=== PATIENT | male | born 1960 | race Caucasian/White ===

== ENCOUNTER → 2017-11-30 | Outpatient (CLI) | payer BC ==
[2017-11-30 12:31] LABS: HEMATOCRIT 50.1 % (42-52); HEMOGLOBIN 17.1 g/dL (14.0-18.0); MEAN CELL VOLUME 97.7 fL (80-100); MEAN CORPUSCULAR HEMOGLOBIN 33.3 pg (25-34); MEAN CORPUSCULAR HGB CONC 34.1 g/dl (32-36); MEAN PLATELET VOLUME 9.6 fL (7.4-10.4); PLATELET COUNT 311 K/uL (130-400); RED CELL DISTRIBUTION WIDTH SD 46.3 fL (36.4-46.3); WHITE BLOOD COUNT 17.41 K/uL (4.8-10.8)
[2017-11-30 12:54] LABS: ALBUMIN 3.5 gm/dl (3.4-5.0); ALKALINE PHOSPHATASE 78 U/L (45-117); ALT/SGPT 36 U/L (12-78); AST/SGOT 18 U/L (15-37); BLOOD UREA NITROGEN 21 mg/dl (7-18); CALCIUM 9.2 mg/dl (8.5-10.1); CARBON DIOXIDE 29 mmol/L (21-32); CHOLESTEROL 208 mg/dl (0-200); CREATININE 1.44 mg/dl (0.60-1.40); GLUCOSE 87 mg/dl (70-99); LDL CHOLESTEROL CALCULATED 130 mg/dl; POTASSIUM 4.3 mmol/L (3.5-5.1); SODIUM 138 mmol/L (136-145); TOTAL PROTEIN 7.3 gm/dl (6.4-8.2)
[2017-11-30 13:15] LABS: BASO % 1.4 %; BASO ABS # 0.25 K/uL (0-0.2); EOS % 2.3 %; IG# 0.72 K/uL (0.00-0.02); LYMPH % 12.8 %; LYMPH ABS # 2.22 K/uL (1.2-3.4); MONO ABS # 1.91 K/uL (0.11-0.59); NEUT % 68.4 %; NEUT ABS # 11.91 K/uL (1.4-6.5)
== END | disposition home or self-care (01) ==
LOC: C.LABPBG 07:48
PROVIDERS: ATTEND Internal Medicine
DX: E78.2 Mixed hyperlipidemia (principal); M05.79 Rheumatoid arthritis with rheumatoid factor of multiple sites without organ or systems involvement; Z79.899 Other long term (current) drug therapy

== ENCOUNTER → 2017-12-08 | Outpatient (CLI) | payer BC ==
--- NOTE | 2017-12-08 10:53 | DIAGNOSTIC IMAGING REPORT ---
L HAND MIN 3 VIEWS CLINICAL HISTORY: 57 years-old Male presenting with LEFT WRIST PAIN. TECHNIQUE: Frontal, oblique, and lateral views of the left hand were obtained. COMPARISON: None. FINDINGS: Joint space loss at the radial scaphoid articulation. No evidence of erosion. No acute fracture or malalignment. No radiographic evidence of soft tissue swelling. Mild degenerative changes suggested at the distal interphalangeal joints of the second and third fingers. IMPRESSION: 1. Joint space loss consistent with degenerative change at the radial scaphoid articulation. Less severe degenerative changes at the distal interphalangeal joints of the second and third fingers. Electronically signed by: Karthik Pena M.D. 12/08/2017 10:52 AM Dictated Date/Time: 12/08/2017 10:45 AM
== END | disposition home or self-care (01) ==
LOC: C.RDSM 17:59
PROVIDERS: ATTEND Internal Medicine
DX: M25.532 Pain in left wrist (principal); M25.832 Other specified joint disorders, left wrist

== ENCOUNTER → 2017-12-29 | Outpatient (CLI) | payer BC ==
[~2017-12-29] MED LIST: AMLO5CAP2 PO; ATEN50TA8 PO; GLUC15002 PO; HYDR-4715 PO; MAGN400T6 PO; PANT40TA PO; PRED-301 PO; SULF500T8 PO; [UNRECOGNIZED DRUG - CODE] IV.
--- NOTE | 2017-12-29 09:39 | DIAGNOSTIC IMAGING REPORT ---
ADDENDUM ADDENDUM: Chest CT scans dated 03/05/2014 and 03/03/2015 were subsequently presented for comparison purposes. The pulmonary nodule has not significantly changed in size from that time. Although this remains pathologically indeterminant, long-term stability suggests a benign etiology. Further follow-up should be based on clinical grounds. The small pleural-based nodules in the right are also unchanged. Electronically signed by: Cesar Shepard M.D. 12/29/2017 2:59 PM Dictated Date/Time: 12/29/2017 2:[address] SCAN OF THE CHEST WITHOUT IV CONTRAST CLINICAL HISTORY: Pulmonary nodules. COMPARISON STUDY: No priors. TECHNIQUE: CT scan of the thorax was performed from the thoracic inlet to the upper abdomen. Images are reviewed in the axial, sagittal, and coronal planes. IV contrast was not administered for this examination as per the referring clinician. A dose lowering technique was utilized adhering to the principles of ALARA. CT DOSE: 1087.09 mGy.cm FINDINGS: Thyroid: Imaged portions of the thyroid gland are normal in size and attenuation. Thoracic aorta: There is mild atherosclerotic calcification of the thoracic aorta, which is normal in caliber and demonstrates standard 3-vessel arch anatomy. Heart: The heart is mildly enlarged and without pericardial effusion. There are coronary artery calcifications. The main pulmonary arteries are mildly dilated suggesting pulmonary artery hypertension. Lungs and pleural spaces: Emphysematous change is identified. No airspace consolidation or pleural effusion is seen. Dependent atelectasis is observed. There is mild diffuse peribronchial thickening. Scattered calcified granulomas are identified. There is an irregular nodule in the left upper lobe which measures 1.6 x 1.1 cm as seen on axial image #86. An 8 mm pleural-based nodule is seen in the right lower lobe along the major fissure on image #145. 8 3 mm pleural-based nodule in the right upper lobe is seen image #124. Subpleural reticulation is seen throughout both lungs. The trachea and central airways are patent Mediastinum: There are scattered subcentimeter mediastinal lymph nodes. These are not pathologically enlarged by size criteria. Kecia: Not well assessed without IV contrast. Axillae: There is no axillary lymphadenopathy. Upper abdomen: The liver is enlarged and steatotic. There is a small hiatal hernia. The spleen is top normal in size measuring 13 cm in length. Skeletal structures: No lytic or blastic bony lesions are seen. IMPRESSION: 1. Cardiomegaly and emphysema. 2. There is an irregular 1.6 cm pulmonary nodule in the left upper lobe. Neoplasm is the diagnosis of exclusion. Follow-up with a thoracic surgeon is recommended. 3. There are 2 additional pleural-based nodules in the right lung measuring up to 8 mm. These are pathologically indeterminant and attention at follow-up is recommended. 4. No mediastinal lymphadenopathy is identified. 5. There is no airspace consolidation or pleural effusion. Mild diffuse peribronchial thickening suggests reactive airway disease. Clinical correlation will be required. 6. Hepatomegaly and hepatic steatosis. Electronically signed by: Cesar Shepard M.D. 12/29/2017 9:38 AM Dictated Date/Time: 12/29/2017 9:27 AM
== END | disposition home or self-care (01) ==
LOC: C.CTS 09:07
PROVIDERS: ATTEND Family Medicine
DX: Z00.00 Encounter for general adult medical examination without abnormal findings (principal); M25.532 Pain in left wrist; R91.8 Other nonspecific abnormal finding of lung field; I51.7 Cardiomegaly; J43.9 Emphysema, unspecified; R16.0 Hepatomegaly, not elsewhere classified; K76.0 Fatty (change of) liver, not elsewhere classified

== ENCOUNTER 2017-12-30 20:50 | Emergency (ER) | payer BC ==
[~2017-12-30] VITALS: Ht 182.9 cm; Wt 144.5 kg
[2017-12-30 20:55] VITALS: TEMP 36.9; Ht 182.9 cm; Wt 144.5 kg
[2017-12-30 21:02] VITALS: O2SAT 97
[2017-12-30 21:44] LABS: BASO % 1.5 %; BASO ABS # 0.16 K/uL (0-0.2); EOS ABS # 0.86 K/uL (0-0.5); HEMATOCRIT 49.9 % (42-52); HEMOGLOBIN 17.5 g/dL (14.0-18.0); LYMPH % 22.5 %; LYMPH ABS # 2.41 K/uL (1.2-3.4); MEAN CELL VOLUME 93.8 fL (80-100); MEAN CORPUSCULAR HEMOGLOBIN 32.9 pg (25-34); MEAN CORPUSCULAR HGB CONC 35.1 g/dl (32-36); MEAN PLATELET VOLUME 9.2 fL (7.4-10.4); MONO % 11.4 %; MONO ABS # 1.22 K/uL (0.11-0.59); NEUT % 54.7 %; NEUT ABS # 5.85 K/uL (1.4-6.5); PLATELET COUNT 213 K/uL (130-400); RED CELL DISTRIBUTION WIDTH CV 12.7 % (11.5-14.5); RED CELL DISTRIBUTION WIDTH SD 43.6 fL (36.4-46.3)
--- NOTE | 2017-12-30 22:02 | DIAGNOSTIC IMAGING REPORT ---
CHEST ONE VIEW PORTABLE HISTORY: 57 years-old Male CHEST PAIN acute atypical chest pain COMPARISON: CT chest 12/29/2017 TECHNIQUE: Portable AP view of the chest FINDINGS: Cardiac silhouette is again enlarged, unchanged. Atherosclerosis of the thoracic aorta. Mild subsegmental right basilar opacities are noted. There is no pneumothorax, pleural effusion, or overt pulmonary edema. Trace fluid tracks along the minor fissure. The bones of the chest appear grossly intact. IMPRESSION: 1. Cardiomegaly without overt pulmonary edema. 2. Subsegmental right basilar opacities suggest atelectasis or pneumonitis The above report was generated using voice recognition software. It may contain grammatical, syntax or spelling errors. Electronically signed by: Samson Kwok M.D. 12/30/2017 10:00 PM Dictated Date/Time: 12/30/2017 9:58 PM
[2017-12-30 22:08] LABS: PTT PATIENT 23.4 SECONDS (21.0-31.0)
[2017-12-30 22:14] LABS: ALT/SGPT 63 U/L (12-78); BLOOD UREA NITROGEN 14 mg/dl (7-18); CALCIUM 8.8 mg/dl (8.5-10.1); CARBON DIOXIDE 28 mmol/L (21-32); CREATININE 1.63 mg/dl (0.60-1.40); GLUCOSE 103 mg/dl (70-99); LIPASE 448 U/L (73-393); POTASSIUM 4.6 mmol/L (3.5-5.1); SODIUM 141 mmol/L (136-145)
[2017-12-30 22:20] LABS: ALKALINE PHOSPHATASE 101 U/L (45-117); AST/SGOT 36 U/L (15-37); CKMB 5.1 ng/ml (0.5-3.6); TOTAL PROTEIN 7.2 gm/dl (6.4-8.2)
[2017-12-30] MEDS ORDERED: [UNRECOGNIZED DRUG - CODE] IV. (23:01)
[2017-12-30] MEDS ORDERED: MAGN400T6 PO (23:01)
[2017-12-30] MEDS ORDERED: ATEN50TA8 PO (23:01)
[2017-12-30] MEDS ORDERED: AMLO5CAP2 PO ×2 (23:01)
[2017-12-30] MEDS ORDERED: SULF500T8 PO (23:01)
[2017-12-30] MEDS ORDERED: PANT40TA PO (23:01)
[2017-12-30] MEDS ORDERED: HYDR-4715 PO ×2 (23:01)
[2017-12-30] MEDS ORDERED: PRED-301 PO (23:01)
[2017-12-30] MEDS ORDERED: GLUC15002 PO (23:01)
[2017-12-30] MEDS ORDERED: ASPIRIN 81 MG CHEW PO STA (23:23)
[2017-12-30 23:48] VITALS: BP 164/94; PULSE 67; O2SAT 94
--- NOTE | 2017-12-31 01:37 | EMERGENCY ROOM VISIT NOTE ---
History Report prepared by Jamarcus: Dani Pfeiffer Under the Supervision of: Dr. Otto Montalvo M.D. First contact with patient: 21:03 Chief Complaint: CARDIAC ASSESSMENT Stated Complaint: CHEST/SHOULDER PAIN History of Present Illness The patient is a 57 year old male with a history of hypertension who presents to the Emergency Room with complaints of a 3-hour episode of chest pain that occurred earlier around 3 and a half hours ago. He states that the pain came on after eating spicy ribs, and he had pain going down to his abdomen as well. He says that the pain gradually came on pretty quickly, and the pain was right across his entire chest. The patient rates the worst pain as a 6 or 7 out of 10 in severity. The patient says that he burped 4 times in the car ride here, and after that the chest pain went completely away and his abdominal pain is much better. He says that he currently has zero pain. The patient states that he vomited once an hour into the chest pain episode. The patient adds that he took 2 acid reducers when the pain came on, but it did not do anything to the pain. He notes that he has not taken his evening blood pressure medications yet. The patient adds that he has rheumatoid arthritis, and had a routine CT of his chest yesterday because there was a nodule found in his lung 5 years ago. The patient is an ex-smoker. 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 Pt denies LOC, headache, fevers, chills, diaphoresis, visual changes, neck pain , tearing pain radiating to the back, personal history or family history of aneurysm or pulmonary embolism, breathing difficulties, leg swelling, coagulation abnormalities, prolonged travel, recent surgery, melena, hematochezia, urinary symptoms, numbness, weakness, lymphadenopathy, rash, or other complaints. Source of History: patient Onset: Around 3 and a half hours ago Position: chest Symptom Intensity: 6 or 7 out of 10 Quality: other (pain) Associated Symptoms: + nausea, + vomiting, + abdominal pain Note: No other associated symptoms noted. Review of Systems See HPI for pertinent positives and negatives. A total of ten systems were reviewed and were otherwise negative. Past Medical & Surgical Medical Problems: (1) Arthritis (2) HTN (hypertension) Family History No pertinent family history Social History Smoking Status: Former Smoker Drug Use: none Marital Status: Housing Status: lives with family Occupation Status: employed Current/Historical Medications Scheduled Amlodipine/Benazepril (Lotrel 5MG/20MG), 2 CAP PO QAM Amlodipine/Benazepril (Lotrel 5MG/20MG), 1 CAP PO AFTERNOON Atenolol (Tenormin), 100 MG PO AFTERNOON Rjxtjhjlzgi-Owzhkzrypdu-Yua C- (Glucosamine 1500 Complex), 1 CAP PO DAILY Hydralazine Hcl (Apresoline), 10 MG PO AFTERNOON Hydralazine Hcl (Apresoline), 10 MG PO QAM Magnesium Oxide (Mag-Ox), 1 CAP PO DAILY Pantoprazole (Protonix), 40 MG PO QAM Prednisone (Prednisone), 5-10 MG PO DAILY Sulfasalazine (Sulfazine), 1,500 MG PO BID Tocilizumab (Actemra), 800 MG IV. MONTHLY Allergies Coded Allergies: No Known Allergies (Unverified , 12/30/17) Physical Exam Vital Signs Date Time Temp Pulse Resp B/P (MAP) Pulse Ox O2 Delivery O2 Flow Rate FiO2 12/30/17 23:48 67 19 164/94 94 12/30/17 22:38 65 122/59 95 Room Air 12/30/17 22:05 70 146/90 94 Room Air 12/30/17 21:45 74 172/92 94 Room Air 12/30/17 21:08 67 12/30/17 21:04 69 196/120 96 Room Air 12/30/17 21:02 97 Room Air 12/30/17 21:01 97 Room Air 12/30/17 20:55 36.9 77 20 199/122 95 Room Air Physical Exam GENERAL: Awake, alert, well-appearing, in no distress HENT: Normocephalic, atraumatic. Oropharynx unremarkable. EYES: Normal conjunctiva. Sclera non-icteric. NECK: Supple. No nuchal rigidity. FROM. No masses. RESPIRATORY: Clear to auscultation. No wheezes. CARDIAC: Normal rate. Normal rhythm. No murmurs. No rubs. Extremities warm and well perfused. Pulses equal. No JVD. GI: Soft, non-distended. No tenderness to palpation. No rebound or guarding. No masses. RECTAL: Deferred. MUSCULOSKELETAL: Atraumatic. Chest examination reveals no tenderness. The back is symmetrical on inspection without obvious abnormality. There is no CVA tenderness to palpation. No joint edema. LOWER EXTREMITIES: Calves are equal size bilaterally and non-tender. No edema. No discoloration. NEURO: Normal sensorium. No sensory or motor deficits noted. SKIN: No rash or jaundice noted. Medical Decision & Procedures ER Provider Diagnostic Interpretation: X-ray: Per my interpretation, radiologist review. CHEST ONE VIEW PORTABLE HISTORY: 57 years-old Male CHEST PAIN acute atypical chest pain COMPARISON: CT chest 12/29/2017 TECHNIQUE: Portable AP view of the chest FINDINGS: Cardiac silhouette is again enlarged, unchanged. Atherosclerosis of the thoracic aorta. Mild subsegmental right basilar opacities are noted. There is no pneumothorax, pleural effusion, or overt pulmonary edema. Trace fluid tracks along the minor fissure. The bones of the chest appear grossly intact. IMPRESSION: 1. Cardiomegaly without overt pulmonary edema. 2. Subsegmental right basilar opacities suggest atelectasis or pneumonitis The above report was generated using voice recognition software. It may contain grammatical, syntax or spelling errors. Electronically signed by: Samson Kwok M.D. 12/30/2017 10:00 PM Dictated Date/Time: 12/30/2017 9:58 PM Laboratory Results 12/30/17 21:34 Red Blood Count 5.32, Mean Corpuscular Volume 93.8, Mean Corpuscular Hemoglobin 32.9, Mean Corpuscular Hemoglobin Concent 35.1, Mean Platelet Volume 9.2, Neutrophils (%) (Auto) 54.7, Lymphocytes (%) (Auto) 22.5, Monocytes (%) (Auto) 11.4, Eosinophils (%) (Auto) 8.0, Basophils (%) (Auto) 1.5, Neutrophils # (Auto ) 5.85, Lymphocytes # (Auto) 2.41, Monocytes # (Auto) 1.22, Eosinophils # (Auto ) 0.86, Basophils # (Auto) 0.16 12/30/17 21:34 Test 12/30/17 21:34 White Blood Count 10.70 K/uL (4.8-10.8) Red Blood Count 5.32 M/uL (4.7-6.1) Hemoglobin 17.5 g/dL (14.0-18.0) Hematocrit 49.9 % (42-52) Mean Corpuscular Volume 93.8 fL (80-100) Mean Corpuscular Hemoglobin 32.9 pg (25-34) Mean Corpuscular Hemoglobin Concent 35.1 g/dl (32-36) Platelet Count 213 K/uL (130-400) Mean Platelet Volume 9.2 fL (7.4-10.4) Neutrophils (%) (Auto) 54.7 % Lymphocytes (%) (Auto) 22.5 % Monocytes (%) (Auto) 11.4 % Eosinophils (%) (Auto) 8.0 % Basophils (%) (Auto) 1.5 % Neutrophils # (Auto) 5.85 K/uL (1.4-6.5) Lymphocytes # (Auto) 2.41 K/uL (1.2-3.4) Monocytes # (Auto) 1.22 K/uL (0.11-0.59) Eosinophils # (Auto) 0.86 K/uL (0-0.5) Basophils # (Auto) 0.16 K/uL (0-0.2) RDW Standard Deviation 43.6 fL (36.4-46.3) RDW Coefficient of Variation 12.7 % (11.5-14.5) Immature Granulocyte % (Auto) 1.9 % Immature Granulocyte # (Auto) 0.20 K/uL (0.00-0.02) Prothrombin Time 10.2 SECONDS (9.0-12.0) Prothromb Time International Ratio 1.0 (0.9-1.1) Activated Partial Thromboplast Time 23.4 SECONDS (21.0-31.0) Partial Thromboplastin Ratio 0.9 D-Dimer 320 ug/L FEU (0-500) Anion Gap 6.0 mmol/L (3-11) Est Creatinine Clear Calc Drug Dose 73.8 ml/min Estimated GFR () 53.4 Estimated GFR (Non- 46.1 BUN/Creatinine Ratio 8.3 (10-20) Calcium Level 8.8 mg/dl (8.5-10.1) Total Bilirubin 0.3 mg/dl (0.2-1) Direct Bilirubin < 0.1 mg/dl (0-0.2) Aspartate Amino Transf (AST/SGOT) 36 U/L (15-37) Alanine Aminotransferase (ALT/SGPT) 63 U/L (12-78) Alkaline Phosphatase 101 U/L (45-117) Total Creatine Kinase 241 U/L (39-308) Creatine Kinase MB 5.1 ng/ml (0.5-3.6) Creatine Kinase MB Ratio 2.1 (0-3.0) Troponin I < 0.015 ng/ml (0-0.045) Total Protein 7.2 gm/dl (6.4-8.2) Albumin 4.0 gm/dl (3.4-5.0) Lipase 448 U/L (73-393) Laboratory results reviewed by me Medications Administered Medications (Trade) Dose Ordered Sig/Madeleine Route Start Time Stop Time Status Last Admin Dose Admin Aspirin (Aspirin Chew) 81 mg NOW STAT PO 12/30/17 23:23 12/30/17 23:24 DC 12/30/17 23:48 81 MG ECG Per My Interpretation Indication: chest pain Rate (beats per minute): 62 Rhythm: normal sinus Findings: no acute ischemic change, no ectopy, other (no pericarditis, normal intervals) ED Course 2120: The patient was evaluated in room A2. A complete history and physical exam was performed. 2299: I reevaluated the patient and the patient has decided to leave against medical advice. I had a long discussion with him and he refused hospitalization. He will follow-up with his PCP on Monday. Medical Decision Triage Nursing notes reviewed. The patient's presentation and history were concerning for chest pain. Etiologies such as cardiac ischemia, aortic dissection, pulmonary embolism, pneumonia, pneumothorax, musculoskeletal, infections, gastrointestinal, as well as others were entertained. Patient presents to emergency department. He had reported a significant amount of discomfort and was very hypertensive. Blood work was obtained. The patient was found to have an unremarkable CBC and chemistry panel. He has slight renal insufficiency. D-dimer was negative. His troponin was negative however his CK- MB was mildly elevated. ECG did not reveal any obvious acute change. Chest imaging showed some congestion versus atelectasis. The patient is not having any pulmonary symptoms such as cough or shortness of breath. I suspect atelectasis. Without intervention his blood pressure did improve. The patient has multiple cardiac risk factors. I discussed staying in the hospital with him. I spent a significant amount of time doing so as the patient was declining admission for a chest pain evaluation. He was fully aware that his CK -MB was abnormal and his blood pressure was dangerously high on presentation. He does not want stay in the hospital. The patient has demonstrated no significant defect in the decision-making capacity to make choices. The encounter had a good level of communication with language the patient can easily understand. I feel trust was present and conveyed that our action/intentions were the best interest of the patient. I offered to involve the patient's primary physician's service. The patient was given all relevant information and reiterated the explained risks and benefits. The patient explained the reasoning for refusing treatment clearly. The patient possesses and expresses a set of values and goals, the ability to communicate and understand, and an ability to reason and deliberate. Despite acting emphatically, attentively and with the utmost patient's the patient declined further treatment. I offered options, negotiated, and explored every reasonable choice. I must respect the patient's autonomy and that they feel that their choices are best for them despite the associated risks of leaving AGAINST MEDICAL ADVICE. The patient was educated about the findings as listed above. All questions were answered and the patient was pleased with the treatment. Return instructions were outlined. The patient was referred to his PCP for follow-up for a recheck of the current condition. Case management will contact his primary office. The patient was aware of this and was okay with assistance. Medication Reconcilliation Current Medication List: was personally reviewed by me Blood Pressure Screening Patient's blood pressure: Elevated blood pressure Blood pressure disposition: Referred to PCP (referred on Monday) Impression Primary Impression: Precordial chest pain Additional Impressions: Severe hypertension Left against medical advice Scribe Attestation The scribe's documentation has been prepared under my direction and personally reviewed by me in its entirety. I confirm that the note above accurately reflects all work, treatment, procedures, and medical decision making performed by me. Departure Information Dispostion Against Medical Advice Referrals Zechariah Cabral MD (PCP) Patient Instructions My [facility] Additional Instructions CHEST PAIN INSTRUCTIONS: You are leaving against the physician's medical advice. Your evaluation is not complete. The exact cause of your symptoms is not known at this time. Your health could be at significant risk by your actions of leaving before the evaluation was completed. This could result in worsening of your condition, need for further treatment, hospitalization, surgery, or even . You may return at any time, for any reason, but you are encouraged to return immediately if your symptoms worsen or if you change your mind. Rest and drink plenty of fluids as tolerated. Continue current medications. Take a baby aspirin daily until directed otherwise by your primary doctor. Avoid strenuous activities and anything that worsens your pain. Return to the ER immediately for worsening or persistent chest pain, abdominal pain, vomiting, fevers, chest pains, difficulty breathing, worsening of your condition, or as needed. Follow up with your primary physician Monday for a recheck of your current condition. Problem Qualifiers
== END 2017-12-30 23:49 | disposition left against medical advice (07) ==
LOC: C.EDB 20:52 → C.EDA 23:49
DX: R07.2 Precordial pain (principal); I10 Essential (primary) hypertension; M19.90 Unspecified osteoarthritis, unspecified site; Z87.891 Personal history of nicotine dependence

== ENCOUNTER → 2018-01-12 | Outpatient (CLI) | payer BC ==
--- NOTE | 2018-01-12 08:56 | DIAGNOSTIC IMAGING REPORT ---
BILATERAL KNEES 3 VIEWS EACH CLINICAL HISTORY: BILATERAL KNEE PAIN COMPARISON STUDY: None. FINDINGS: No acute fracture or dislocation within the right or left knee. Severe right and moderate left cartilage space narrowing within the medial compartments. Tricompartmental marginal osteophytes. Small right knee effusion. No significant left knee effusion. Mild vascular calcifications. Jugular shape calcific density adjacent to the medial compartment of the right knee. This may represent a calcified medial meniscus. IMPRESSION: 1. Bilateral medial compartment osteoarthritis, right greater than left. 2. No fractures within the knees. 3. Small right knee effusion. 4. Calcific density adjacent to the medial compartment of the right knee which may represent a calcified meniscus. Electronically signed by: Damon Alvarado M.D. 01/12/2018 8:54 AM Dictated Date/Time: 01/12/2018 8:52 AM
== END | disposition home or self-care (01) ==
LOC: C.RDSM 13:02
PROVIDERS: ATTEND Internal Medicine
DX: M25.561 Pain in right knee (principal)

== ENCOUNTER → 2018-02-26 | Outpatient (CLI) | payer BC ==
[2018-02-26 17:23] LABS: BASO % 0.9 %; BASO ABS # 0.09 K/uL (0-0.2); EOS % 6.1 %; EOS ABS # 0.58 K/uL (0-0.5); HEMATOCRIT 52.9 % (42-52); HEMOGLOBIN 18.2 g/dL (14.0-18.0); IG# 0.12 K/uL (0.00-0.02); LYMPH % 15.8 %; MEAN CELL VOLUME 95.1 fL (80-100); MEAN CORPUSCULAR HEMOGLOBIN 32.7 pg (25-34); MEAN CORPUSCULAR HGB CONC 34.4 g/dl (32-36); MONO % 9.9 %; MONO ABS # 0.94 K/uL (0.11-0.59); NEUT ABS # 6.26 K/uL (1.4-6.5); PLATELET COUNT 230 K/uL (130-400); RED CELL DISTRIBUTION WIDTH SD 45.3 fL (36.4-46.3); WHITE BLOOD COUNT 9.49 K/uL (4.8-10.8)
[2018-02-26 18:54] LABS: ALBUMIN 3.9 gm/dl (3.4-5.0); ALKALINE PHOSPHATASE 98 U/L (45-117); ALT/SGPT 54 U/L (12-78); AST/SGOT 32 U/L (15-37); BLOOD UREA NITROGEN 21 mg/dl (7-18); CALCIUM 8.5 mg/dl (8.5-10.1); CARBON DIOXIDE 26 mmol/L (21-32); CREATININE 1.29 mg/dl (0.60-1.40); GLUCOSE 123 mg/dl (70-99); POTASSIUM 4.3 mmol/L (3.5-5.1); SODIUM 139 mmol/L (136-145); TOTAL PROTEIN 7.5 gm/dl (6.4-8.2)
[2018-02-28 13:25] LABS: QUANTIF MITOGEN-NIL 8.18 IU/ML; QUANTIFERON NEGATIVE (NEGATIVE); QUANTIFERON NIL 0.03 IU/ML
== END | disposition home or self-care (01) ==
LOC: C.LABPBG 11:34
PROVIDERS: ATTEND Internal Medicine
DX: M05.79 Rheumatoid arthritis with rheumatoid factor of multiple sites without organ or systems involvement (principal); Z79.52 Long term (current) use of systemic steroids

== ENCOUNTER 2019-08-29 17:54 | Inpatient (IN) ==
[2019-08-29] MEDS ORDERED: KETOROLAC 30 MG/ML VIAL IV STA (18:27)
[2019-08-29] MEDS ORDERED: SODIUM CHLORIDE 0.9% 500 ML IV SCH (18:30)
--- NOTE | 2019-08-29 18:35 | Emergency Department Note ---
Entered by Deborah Jansen acting as a scribe for History of Present Illness General Chief complaint: Rib Injury/Pain Stated complaint: RIGHT SIDED CHEST PAIN Time Seen by Provider: 08/29/19 18:12 Source: patient History of Present Illness Onset (ago): day(s) 1 Location: abdomen and right Pain Consistency: + constant Maximum Pain Intensity: 3 Current Pain Intensity: 3 Quality: + sharp Relieved By: + none Exacerbated By: + movement and + other (deep breaths) Associated symptoms: + weakness The patient is a 59 year old male who presents to the Emergency Room with complaints of right sided rib pain that began around noon yesterday. He states that yesterday he was feeling generally unwell all day, and experienced fatigue. His pain is exacerbated with movement and with deep breaths. He describes the pain as sharp, which is causing some shortness of breath. He has a history of rheumatoid arthritis, and received an infusion on Monday. He states that he gets these every few months. He denies, runny nose, sore throat, pain or swelling in legs, and abdominal pain. He reports he was a recent smoker, and quit 19 years ago. Home Medications Home Medications Medication Instructions Recorded Confirmed Type amlodipine-benazepril 1 cap PO QPM 10/21/18 08/29/19 History amlodipine-benazepril 2 cap PO QAM 10/21/18 08/29/19 History atenolol 100 mg PO HS 10/21/18 08/29/19 History [id number]-[id number]-yvs C-Mn 1,500 mg PO QAM 10/21/18 08/29/19 History hydralazine 10 mg PO BID 10/21/18 08/29/19 History magnesium oxide 400 mg PO QAM 10/21/18 08/29/19 History pantoprazole 40 mg PO HS 10/21/18 08/29/19 History prednisone 5 - 10 mg PO DAILY 10/21/18 08/29/19 History sulfasalazine 1,500 mg PO BID 10/21/18 08/29/19 History tocilizumab [Actemra] 800 mg IV MONTHLY 10/21/18 08/29/19 History Allergies Allergy/AdvReac Type Severity Reaction Status Date / Time No Known Allergies Allergy Verified 08/29/19 20:10 Past Med/Surg History Medical History Rheumatoid arthritis HTN (hypertension) (Chronic) Arthritis (Chronic) Family History Other No pertinent family history Social History Feels Safe at Home: Yes Smoking Status: Never smoker Review of Systems See HPI for pertinent positives & negatives. and A total of 10 systems reviewed and were otherwise negative Physical Exam Vital Signs Vital Signs - 24 hr 08/29/19 17:55 08/29/19 18:53 08/29/19 19:01 Temperature 36.9 C Temperature Source Oral Sepsis Recent Fever Within 48 Hours No Sepsis New/Unexplained Change in Mental Status No Sepsis Action Taken by Nursing No Action Required Pulse Rate 70 64 61 Pulse Rate [Apical] Pulse Rate from SpO2 Sensor Respiratory Rate 20 17 20 Respiratory Effort / Characteristics Respiratory Depth Respiratory Pattern Blood Pressure 132/76 162/98 H Blood Pressure Mean 94 119 Blood Pressure Position Sitting Pulse Oximetry 93 Oxygen Delivery Method Room Air Oxygen Flow Rate 08/29/19 19:16 08/29/19 19:30 08/29/19 19:31 Temperature Temperature Source Sepsis Recent Fever Within 48 Hours Sepsis New/Unexplained Change in Mental Status Sepsis Action Taken by Nursing Pulse Rate 60 60 61 Pulse Rate [Apical] Pulse Rate from SpO2 Sensor 61 61 60 Respiratory Rate 24 14 15 Respiratory Effort / Characteristics Respiratory Depth Respiratory Pattern Blood Pressure 164/101 H 154/95 H Blood Pressure Mean 122 114 Blood Pressure Position Pulse Oximetry 92 90 Oxygen Delivery Method Oxygen Flow Rate 08/29/19 20:00 08/29/19 20:01 08/29/19 20:16 Temperature Temperature Source Sepsis Recent Fever Within 48 Hours Sepsis New/Unexplained Change in Mental Status Sepsis Action Taken by Nursing Pulse Rate 62 63 72 Pulse Rate [Apical] Pulse Rate from SpO2 Sensor 62 Respiratory Rate 16 18 19 Respiratory Effort / Characteristics Respiratory Depth Respiratory Pattern Blood Pressure 174/107 H 127/73 Blood Pressure Mean 129 91 Blood Pressure Position Pulse Oximetry 91 Oxygen Delivery Method Room Air Oxygen Flow Rate 08/29/19 21:00 08/29/19 21:01 08/29/19 21:30 Temperature Temperature Source Sepsis Recent Fever Within 48 Hours Sepsis New/Unexplained Change in Mental Status Sepsis Action Taken by Nursing Pulse Rate 64 63 63 Pulse Rate [Apical] Pulse Rate from SpO2 Sensor Respiratory Rate 17 20 19 Respiratory Effort / Characteristics Respiratory Depth Respiratory Pattern Blood Pressure 148/99 H Blood Pressure Mean 115 Blood Pressure Position Pulse Oximetry Oxygen Delivery Method Oxygen Flow Rate 08/29/19 21:36 08/29/19 21:53 08/29/19 21:57 Temperature Temperature Source Sepsis Recent Fever Within 48 Hours Sepsis New/Unexplained Change in Mental Status Sepsis Action Taken by Nursing Pulse Rate 63 Pulse Rate [Apical] 58 L 65 Pulse Rate from SpO2 Sensor 64 Respiratory Rate 18 20 15 Respiratory Effort / Characteristics Spontaneous Non-Labored Spontaneous Respiratory Depth Normal Respiratory Pattern Regular Blood Pressure 164/95 H Blood Pressure Mean 118 Blood Pressure Position Pulse Oximetry 90 89 L 91 Oxygen Delivery Method Room Air Room Air Nasal Cannula Oxygen Flow Rate 3 CONSTITUTIONAL/VITAL SIGNS: Reviewed / noted above. GENERAL: Non-toxic in appearance. INTEGUMENTARY: Warm, dry, and [place]. HEAD: Normocephalic. EYES: without scleral icterus or trauma. ENT/OROPHARYNX: clear and moist. LYMPHADENOPATHY/NECK: Is supple without lymphadenopathy or meningismus. RESPIRATORY: Lungs clear and equal. CARDIOVASCULAR: Regular rate and rhythm. GI/ABDOMEN: Soft and nontender. No organomegaly or pulsatile mass. No rebound or guarding. Normal bowel sounds. EXTREMITIES: Warm and well perfused. BACK: No CVA tenderness. NEUROLOGICAL: Intact without focal deficits. PSYCHIATRIC: normal affect. MUSCULOSKELETAL: Normally developed with good muscle tone. Course 1822: Past medical records reviewed. The patient was evaluated in room B03B. A complete history and physical exam was performed. 1909: The patient was administered 30 mg Toradol IV 1939: I rechecked on the patient, who was resting comfortably in the bed. 2110: I reevaluated the patient and updated him on imaging results. I mentioned the possibility of staying in the hospital, which the patient states he would rather not do. He is still hypoxic on room air, so an antibiotic breathing treatment will be given to see if his symptoms improve. 2222: The patient finished the breathing treatment, but is still having symptoms. I again discussed staying in the hospital with him, and he was agreeable. I spoke to Dr. Omer, [facility] hospitalist, who agreed to take over care of the patient. The patient verbally expressed understanding and agreement of the treatment plan. The patient will be evaluated for further treatment. Administered Medications Ioversol (Optiray 320 125ml) 119 ml IV ONCE PRN PRN Reason: Interaction Checking Stop: 09/02/19 20:05 Last Admin: 08/29/19 20:06 Dose: 119 ml Documented by: [id number] Discontinued Medications Albuterol (Duoneb) 3 ml NEB NOW STA Stop: 08/29/19 21:21 Last Admin: 08/29/19 21:32 Dose: 3 ml Documented by: [id number] Sodium Chloride (Nss) 500 mls @ 999 mls/hr IV .Q31M SVETLANA Stop: 08/29/19 19:00 Last Infusion: 08/29/19 20:02 Dose: 0 mls/hr Documented by: [id number] Admin: 08/29/19 19:10 Dose: 999 mls/hr Documented by: [id number] Levofloxacin/Dextrose (Levaquin/D5w) 500 mg in 100 mls @ 100 mls/hr IV ONE ONE Stop: 08/29/19 22:04 Last Admin: 08/29/19 21:52 Dose: 100 mls/hr Documented by: [id number] Ketorolac Tromethamine (Toradol) 30 mg IV NOW STA Stop: 08/29/19 18:28 Last Admin: 08/29/19 19:10 Dose: 30 mg Documented by: [id number] Medical Decision Making Differential Diagnosis The differential that was considered includes acute myocardial infarction, acute coronary syndrome, myocarditis, pericarditis, pericardial effusions /tamponade, esophageal perforation, thoracic aortic dissection, pulmonary embolism, pneumonia, pneumothorax, pancreatitis, shingles, acute cholecystitis, perforated abdominal viscus. Medical Records Attestation: I reviewed the patient's medical records. Home Medications Current Medication List: was personally reviewed by me Laboratory Data Attestation: I reviewed the patient's lab results. Result diagrams: 08/29/19 19:11 08/29/19 19:11 Lab Results 08/29/19 08/29/19 08/29/19 Range/Units 19:11 19:11 19:11 WBC 12.02 H (4.8-10.8) K/uL RBC 5.57 (4.7-6.1) M/uL Hgb 18.7 H (14.0-18.0) g/dL Hct 54.9 H (42-52) % MCV 98.6 (80-100) fL MCH 33.6 (25-34) pg MCHC 34.1 (32-36) g/dL RDW Std Deviation 45.4 (36.4-46.3) fL RDW Coeff of [place] 12.6 (11.5-14.5) % Plt Count 204 (130-400) K/uL MPV 9.9 (7.4-10.4) fL Immature Gran % (Auto) 1.8 % Neut % (Auto) 59.4 % Lymph % (Auto) 22.1 % [place] % (Auto) 11.1 % Eos % (Auto) 4.8 % Baso % (Auto) 0.8 % Immature Gran # (Auto) 0.22 H (0.00-0.02) K/uL Neut # (Auto) 7.13 H (1.4-6.5) K/uL Lymph # (Auto) 2.66 (1.2-3.4) K/uL [place] # (Auto) 1.33 H (0.11-0.59) K/uL Eos # (Auto) 0.58 H (0-0.5) K/uL Baso # (Auto) 0.10 (0-0.2) K/uL D-Dimer 1020 H* (0-500) ug/L FEU Sodium 139 (136-145) mmol/L Potassium 4.3 (3.5-5.1) mmol/L Chloride 104 (98-107) mmol/L Carbon Dioxide 29 (21-32) mmol/L Anion Gap 6.0 (3-11) BUN 16 (7-18) mg/dl Creatinine 1.46 H (0.6-1.4) mg/dl Est Cr Clr Drug Dosing 78.7 ml/min Est GFR ( Amer) 60.2 Est GFR (Non-Af Amer) 51.9 BUN/Creatinine Ratio 11.0 (10-20) Glucose 84 (70-99) mg/dl Calcium 9.7 (8.5-10.1) mg/dl Total Bilirubin 0.4 (0.2-1) mg/dl AST 35 (15-37) U/L ALT 60 (12-78) U/L Alkaline Phosphatase 76 (45-117) U/L Troponin I < 0.015 (0-0.045) ng/ml Total Protein 7.5 (6.4-8.2) gm/dl Albumin 4.1 (3.4-5.0) gm/dl Globulin 3.4 (2.5-4.0) gm/dl Albumin/Globulin Ratio 1.2 (0.9-2) Lipase 406 H (73-393) U/L Imaging Data Radiologist's Impression: Radiology results as stated below per my review and the radiologist's interpretation: XR chest 1V portable CLINICAL HISTORY: Atypical chest pain COMPARISON STUDY: 12/30/2017 FINDINGS: The heart remains enlarged. There is elevation of interstitium suggesting pulmonary vascular congestion. There are more focal right lower lung zone airspace opacities, focal edema versus an infectious/inflammatory process. There is no pneumothorax. There is blunting of the lateral costophrenic angles, suggesting small effusions. IMPRESSION: 1. Cardiomegaly and radiographic evidence of pulmonary vascular congestion/fluid overload 2. More focal right basilar airspace opacities, focal edema versus infectious/inflammatory process. 3. Clinical and radiographic follow-up is recommended Electronically signed by: Abisai Marroquin M.D. 08/29/2019 7:[address] ANGIOGRAM OF THE CHEST CLINICAL HISTORY: Atypical chest pain. Abnormal chest x-ray. Possible pulmonary embolism. COMPARISON STUDY: Chest x-ray dated 08/29/2019, noncontrast CT scan dated 12/29/2017 TECHNIQUE: Following the IV administration of 119 mL of Optiray-320, CT angiogram of the thorax was performed from the thoracic inlet to the lung bases utilizing the pulmonary embolus protocol. Images are reviewed in the axial, sagittal, and coronal planes. IV contrast was administered without complication. MIP imaging was performed. A dose lowering technique was utilized adhering to the principles of ALARA. CT DOSE: 837.40 mGy.cm FINDINGS: There is mild hepatic steatosis There are borderline enlarged right paratracheal lymph nodes, unchanged from the preceding examination. There was no evidence of thoracic aortic dilatation. There were no pulmonary artery filling defects to indicate acute pulmonary embolism. There is a small right pleural effusion. There is mild diffuse subpleural interstitial thickening/edema. There are right upper lobe airspace opacity suspicious for a pneumonia. There are right lower lobe airspace opacities, atelectatic versus infectious/inflammatory. There is a stable 16 mm left upper lobe pulmonary nodule. There is mild lower lobe bronchial wall thickening. IMPRESSION: 1. No evidence of acute pulmonary embolism 2. Stable 16 mm left upper lobe pulmonary nodule 3. Right upper lobe airspace opacities suspicious for pneumonia 4. Small right pleural effusion with associated right lower lobe atelectasis/consolidation 5. Mild lower lobe bronchial wall thickening 6. Stable borderline enlarged mediastinal lymph nodes 7. Hepatic steatosis Electronically signed by: Abisai Marroquin M.D. 08/29/2019 8:19 PM ECG Data Attestation: I personally reviewed and interpreted this ECG as follows: Indication: + chest pain Rhythm: + normal sinus ECG [place]: + Normal ECG ST segments: no ST elevation Comparison ECG Date: from (12/30/17) Change: no significant change Blood Pressure Blood Pressure Findings: Normal blood pressure Blood Pressure Disposition: did not require urgent referral MDM Narrative This is a 59-year-old male who presents to the ED with a chief complaint of sharp right-sided chest pain that is worsened by taking a brief breath and movement. The patient states that his symptoms started yesterday around noon. He denies any trauma. He states that he has a little phlegm but no significant upper respiratory symptoms. He denies any fevers. No abdominal pains. No back pains. He does have a history of rheumatoid arthritis and states that he had a an injection for this earlier in the week. The patient states that he felt a little tired yesterday but otherwise no additional symptoms. His vital signs here reveal a pulse ox of 88% on room air. He does report previous history of smoking but not recently. No specific history of COPD. The patient states that he feels like he cannot take a good breath because of the pain. He is afebrile. His blood pressure is normal. His exam reveals some diminished breath sounds bilaterally likely due to poor inspiratory effort. He has no tenderness to palpation of the chest wall. No abdominal tenderness. The patient's white blood count is slightly elevated at 12. D-dimer is elevated. Creatinine is slightly elevated. Lipase was negative, troponin was negative. EKG shows a normal sinus rhythm at a rate of 64. A CT scan of the chest reveals a right upper lobe pneumonia as well as a small right lower lobe pneumonia versus atelectasis. The patient during his stay had pulse ox on room air between 86 and 88%. He required at least 2 or 3 L of oxygen to maintain saturations above 90%. He did not appear to be any significant distress but does appear to have a body habitus suggestive of sleep apnea and the patient is felt to require inpatient treatment for his hypoxia and pneumonia. He was treated with IV Levaquin here. He was also given a DuoNeb treatment. Despite a DuoNeb treatment, his pulse ox remained below 88% on room air. He was also given 500 cc of normal saline. He will be seen by the hospitalist for further evaluation and care. Impression & Plan Pneumonia, Hypoxia Discharge Plan Visit Data Chief Complaint: Rib Injury/Pain Stated Complaint: RIGHT SIDED CHEST PAIN ED Provider: Evan Alfaro Discharge Problem: Pneumonia, Hypoxia Patient Disposition: Being Evaluated by Hospitalist Condition: Good Forms Stand Alone Forms: My [facility], Important Visit Information Prescriptions Prescriptions: No Action prednisone 5 mg tablet 5 - 10 mg PO DAILY RF: 0 pantoprazole 40 mg tablet,delayed release (DR/EC) 40 mg PO HS RF: 0 hydralazine 10 mg tablet 10 mg PO BID RF: 0 atenolol 100 mg Tablet 100 mg PO HS RF: 0 tvxplegyesq-slhnrfjsk-brs C-Mn Capsule 1,500 mg PO QAM RF: 0 sulfasalazine 500 mg tablet,delayed release (DR/EC) 1,500 mg PO BID RF: 0 magnesium oxide 400 mg (241.3 mg magnesium) Tablet 400 mg PO QAM RF: 0 amlodipine-benazepril 5-20 mg capsule 2 cap PO QAM RF: 0 amlodipine-benazepril 5-20 mg capsule 1 cap PO QPM RF: 0 Actemra 400 mg/20 mL (20 mg/mL) Solution 800 mg IV MONTHLY RF: 0 Referrals Referrals: Osmar Cabral MD [Primary Care Provider] - Discharge Problem: Pneumonia Qualifiers: Pneumonia type: due to unspecified organism Laterality: right Lung location: upper lobe of lung Qualified Code(s): J18.1 - Lobar pneumonia, unspecified organism The scribe's documentation has been prepared under my direction and personally reviewed by me in its entirety. I confirm that the note above accurately reflects all work, treatment, procedures, and medical decision making performed by me.
[2019-08-29 19:30] LABS: Basophils % (auto) 0.8 %; Eosinophils # (auto) 0.58 K/uL (0-0.5); Eosinophils % (auto) 4.8 %; Hematocrit (blood only) 54.9 % (42-52); Hemoglobin 18.7 g/dL (14.0-18.0); Immature Granulocytes # (auto) 0.22 K/uL (0.00-0.02); Immature Granulocytes % (auto) 1.8 %; Lymphocytes # (auto) 2.66 K/uL (1.2-3.4); Lymphocytes % (auto) 22.1 %; Mean Corpuscular Hemoglobin 33.6 pg (25-34); Mean Corpuscular Hgb Conc 34.1 g/dL (32-36); Mean Corpuscular Volume 98.6 fL (80-100); Mean Platelet Volume 9.9 fL (7.4-10.4); Monocytes # (auto) 1.33 K/uL (0.11-0.59); Monocytes % (auto) 11.1 %; Neutrophils # (auto) 7.13 K/uL (1.4-6.5); Neutrophils % (auto) 59.4 %; Platelet Count 204 K/uL (130-400); RDW Coefficient of Variation 12.6 % (11.5-14.5); RDW Standard Deviation 45.4 fL (36.4-46.3); Red Blood Count 5.57 M/uL (4.7-6.1); White Blood Count 12.02 K/uL (4.8-10.8)
--- NOTE | 2019-08-29 19:34 | XRay Report ---
XR chest 1V portable CLINICAL HISTORY: Atypical chest pain COMPARISON STUDY: 12/30/2017 FINDINGS: The heart remains enlarged. There is elevation of interstitium suggesting pulmonary vascula r congestion. There are more focal right lower lung zone airspace opacities, focal edema versus an in fectious/inflammatory process. There is no pneumothorax. There is blunting of the lateral costophreni c angles, suggesting small effusions. IMPRESSION: 1. Cardiomegaly and radiographic evidence of pulmonary vascular congestion/fluid overload 2. More focal right basilar airspace opacities, focal edema versus infectious/inflammatory process. 3. Clinical and radiographic follow-up is recommended Electronically signed by: Abisai Marroquin M.D. 08/29/2019 7:32 PM
[2019-08-29 19:46] LABS: D Dimer 1020 ug/L FEU (0-500)
[2019-08-29 19:48] LABS: Alanine Aminotransferase 60 U/L (12-78); Albumin Level 4.1 gm/dl (3.4-5.0); Aspartate Aminotransferase 35 U/L (15-37); Blood Urea Nitrogen 16 mg/dl (7-18); Calcium 9.7 mg/dl (8.5-10.1); Carbon Dioxide 29 mmol/L (21-32); Chloride 104 mmol/L (98-107); Creatinine Clr Calc Pharmacy 78.7 ml/min; Est GFR (African American) 60.2; Est GFR (Non-African American) 51.9; Glucose 84 mg/dl (70-99); Lipase 406 U/L (73-393); Potassium 4.3 mmol/L (3.5-5.1); Sodium 139 mmol/L (136-145)
[2019-08-29 19:53] LABS: Albumin Globulin Ratio 1.2 (0.9-2); Alkaline Phosphatase 76 U/L (45-117); Bilirubin,Total 0.4 mg/dl (0.2-1); Globulin 3.4 gm/dl (2.5-4.0); Total Protein 7.5 gm/dl (6.4-8.2); Troponin I < 0.015 ng/ml (0-0.045)
[2019-08-29] MEDS ORDERED: OPTIRAY 320 125ml IV PRN (20:06)
--- NOTE | 2019-08-29 20:21 | CT Scan Report ---
CT ANGIOGRAM OF THE CHEST CLINICAL HISTORY: Atypical chest pain. Abnormal chest x-ray. Possible pulmonary embolism. COMPARISON STUDY: Chest x-ray dated 08/29/2019, noncontrast CT scan dated 12/29/2017 TECHNIQUE: Following the IV administration of 119 mL of Optiray-320, CT angiogram of the thorax was p erformed from the thoracic inlet to the lung bases utilizing the pulmonary embolus protocol. Images a re reviewed in the axial, sagittal, and coronal planes. IV contrast was administered without complica tion. MIP imaging was performed. A dose lowering technique was utilized adhering to the principles o f ALARA. CT DOSE: 837.40 mGy.cm FINDINGS: There is mild hepatic steatosis There are borderline enlarged right paratracheal lymph nodes, unchanged from the preceding examinatio n. There was no evidence of thoracic aortic dilatation. There were no pulmonary artery filling defects to indicate acute pulmonary embolism. There is a small right pleural effusion. There is mild diffuse subpleural interstitial thickening/edema. There are right upper lobe airspace o pacity suspicious for a pneumonia. There are right lower lobe airspace opacities, atelectatic versus infectious/inflammatory. There is a stable 16 mm left upper lobe pulmonary nodule. There is mild lower lobe bronchial wall thickening. IMPRESSION: 1. No evidence of acute pulmonary embolism 2. Stable 16 mm left upper lobe pulmonary nodule 3. Right upper lobe airspace opacities suspicious for pneumonia 4. Small right pleural effusion with associated right lower lobe atelectasis/consolidation 5. Mild lower lobe bronchial wall thickening 6. Stable borderline enlarged mediastinal lymph nodes 7. Hepatic steatosis Electronically signed by: Abisai Marroquin M.D. 08/29/2019 8:19 PM
[2019-08-29] MEDS ORDERED: LEVOFLOXACIN/D5W 500 MG/100 ML BAG IV ONE (21:05)
[2019-08-29] MEDS ORDERED: ALBUT/IPRATROP 3MG/0.5MG NEB 3 ML VIAL NEB STA (21:20)
[2019-08-29] MEDS ORDERED: NON-FORMULARY MEDICATION (Amlodipine-Benazepril 1 CAP) PO SCH (22:54)
[2019-08-29] MEDS ORDERED: ALBUT/IPRATROP 3MG/0.5MG NEB 3 ML VIAL NEB PRN (22:54)
--- NOTE | 2019-08-29 23:25 | History & Physical Report ---
Date of Service August 29, 2019 Assessment & Plan (1) Acute respiratory failure with hypoxia: Admit tele supplemental oxygen currently 2L nc DVT prophylaxis = SCDs and Lovenox (2) Pneumonia: Right upper lobe IV Levaquin Solu-medrol 40mg IV Q 6 x 3 doses as the patient take prednisone on a daily basis I ordered to resume prednisone at 5mg daily on 08/31. Duonebs prn. (3) Pleuritic chest pain: Pain control ordered. (4) Rheumatoid arthritis: continue sulfasalazine receives Actemra monthly (5) GERD (gastroesophageal reflux disease): Continue pantoprazole. (6) HTN (hypertension): Continue atenolol, amlodipine, benazepril, and hydralazine. History of Present Illness 59 y/o male who presented to the ED with right rib cage pain worse with deep breath of 8 hours duration. He had associated SOB. No cough, F/C, sore throat, left sided chest pain, or N/V/D. He did not feel well through the day having increased fatigue. He is on immunotherapy for RA. He has had pneumonia in the past. He stopped smoking 19 years prior. Primary Care Provider: Osmar Cabral MD Allergies Allergy/AdvReac Type Severity Reaction Status Date / Time No Known Allergies Allergy Verified 08/29/19 20:10 Home Medications Home Medications Medication Instructions Recorded Confirmed Type amlodipine-benazepril 1 cap PO QPM 10/21/18 08/29/19 History amlodipine-benazepril 2 cap PO QAM 10/21/18 08/29/19 History atenolol 100 mg PO HS 10/21/18 08/29/19 History [id number] C-Mn 1,500 mg PO QAM 10/21/18 08/29/19 History hydralazine 10 mg PO BID 10/21/18 08/29/19 History magnesium oxide 400 mg PO QAM 10/21/18 08/29/19 History pantoprazole 40 mg PO HS 10/21/18 08/29/19 History prednisone 5 - 10 mg PO DAILY 10/21/18 08/29/19 History sulfasalazine 1,500 mg PO BID 10/21/18 08/29/19 History tocilizumab [Actemra] 800 mg IV MONTHLY 10/21/18 08/29/19 History Past Med/Surg History Medical History Rheumatoid arthritis HTN (hypertension) (Chronic) Arthritis (Chronic) Pneumonia Family History Other No pertinent family history Social History Feels Safe at Home: Yes Smoking Status: Former smoker Tobacco Type: cigarettes ; Age Quit Using Tobacco: 40 ; Hx Alcohol Use: No Hx Substance Use: No Review of Systems Review of Systems: Constitutional- no fever; no weight loss Eyes- no acute visual changes ENT- no sinus drainage; no pharyngitis Pulmonary- As in HPI Cardiac- As in HPI GI- no nausea, no vomiting, no diarrhea, no melena, no hematochezia - no dysuria, no hematuria Musculoskeletal- no arthralgias, no myalgias Derm- no rashes, no new skin lesions, no changing skin lesions Hematologic- no unusual bruising, no unusual bleeding Lymphatics- no adenopathy Endocrine- no polyuria or polydipsia; no heat or cold intolerance Neuro- no headaches, no focal neurologic symptoms Psych- no anxiety, no depression Physical Exam Physical Exam: General- adult male, NAD Head- atraumatic Eyes- PERRL, EOMI, anicteric ENT- oropharynx clear Neck- supple, no JVD, no adenopathy, no thyromegaly. Lungs- CTA b/l no R/R/W Heart- regular rhythm; no murmur, no gallop, no rub appreciated Abdomen- normal bowel sounds, soft, nontender. Extremities- no pretibial edema, no calf tenderness; peripheral pulses intact Neuro- alert, oriented x 3; PERRL, EOMI; pinsetter mechanic automatic II-XII grossly intact, Non-focal. Skin- warm & dry Results & Data Vital Signs (Past 12 Hours) Vital Signs Temp Pulse Pulse Resp BP Pulse Ox 08/29/19 22:31 67 14 92 08/29/19 22:30 66 15 154/97 H 92 08/29/19 22:01 63 15 08/29/19 22:00 65 18 158/95 H 08/29/19 21:58 63 12 92 08/29/19 21:57 63 15 164/95 H 91 11/07/19 21:53 65 20 89 L 08/29/19 21:36 58 L 18 90 08/29/19 21:30 63 19 08/29/19 21:01 63 20 08/29/19 21:00 64 17 148/99 H 08/29/19 20:16 72 19 127/73 08/29/19 20:01 63 18 08/29/19 20:00 62 16 174/107 H 91 08/29/19 19:31 61 15 90 08/29/19 19:30 60 14 154/95 H 08/29/19 19:16 60 24 164/101 H 92 08/29/19 19:01 61 20 08/29/19 18:53 64 17 162/98 H 08/29/19 17:55 36.9 C 70 20 132/76 93 Laboratory Results Laboratory Results WBC 12.02 K/uL (4.8-10.8) H 08/29/19 19:11 RBC 5.57 M/uL (4.7-6.1) 08/29/19 19:11 Hgb 18.7 g/dL (14.0-18.0) H 08/29/19 19:11 Hct 54.9 % (42-52) H 08/29/19 19:11 MCV 98.6 fL (80-100) 08/29/19 19:11 MCH 33.6 pg (25-34) 08/29/19 19:11 MCHC 34.1 g/dL (32-36) 08/29/19 19:11 RDW Std Deviation 45.4 fL (36.4-46.3) 08/29/19 19:11 RDW Coeff of [place] 12.6 % (11.5-14.5) 08/29/19 19:11 Plt Count 204 K/uL (130-400) 08/29/19 19:11 MPV 9.9 fL (7.4-10.4) 08/29/19 19:11 Immature Gran % (Auto) 1.8 % 08/29/19 19:11 Neut % (Auto) 59.4 % 08/29/19 19:11 Lymph % (Auto) 22.1 % 08/29/19 19:11 [place] % (Auto) 11.1 % 08/29/19 19:11 Eos % (Auto) 4.8 % 08/29/19 19:11 Baso % (Auto) 0.8 % 08/29/19 19:11 Immature Gran # (Auto) 0.22 K/uL (0.00-0.02) H 08/29/19 19:11 Neut # (Auto) 7.13 K/uL (1.4-6.5) H 08/29/19 19:11 Lymph # (Auto) 2.66 K/uL (1.2-3.4) 08/29/19 19:11 [place] # (Auto) 1.33 K/uL (0.11-0.59) H 08/29/19 19:11 Eos # (Auto) 0.58 K/uL (0-0.5) H 08/29/19 19:11 Baso # (Auto) 0.10 K/uL (0-0.2) 08/29/19 19:11 D-Dimer 1020 ug/L FEU (0-500) H* 08/29/19 19:11 Sodium 139 mmol/L (136-145) 08/29/19 19:11 Potassium 4.3 mmol/L (3.5-5.1) 08/29/19 19:11 Chloride 104 mmol/L (98-107) 08/29/19 19:11 Carbon Dioxide 29 mmol/L (21-32) 08/29/19 19:11 Anion Gap 6.0 (3-11) 08/29/19 19:11 BUN 16 mg/dl (7-18) 08/29/19 19:11 Creatinine 1.46 mg/dl (0.6-1.4) H 08/29/19 19:11 Est Cr Clr Drug Dosing 78.7 ml/min 08/29/19 19:11 Est GFR ( Amer) 60.2 08/29/19 19:11 Est GFR (Non-Af Amer) 51.9 08/29/19 19:11 BUN/Creatinine Ratio 11.0 (10-20) 08/29/19 19:11 Glucose 84 mg/dl (70-99) 08/29/19 19:11 Calcium 9.7 mg/dl (8.5-10.1) 08/29/19 19:11 Total Bilirubin 0.4 mg/dl (0.2-1) 11/07/19 19:11 AST 35 U/L (15-37) 08/29/19 19:11 ALT 60 U/L (12-78) 08/29/19 19:11 Alkaline Phosphatase 76 U/L (45-117) 08/29/19 19:11 Troponin I < 0.015 ng/ml (0-0.045) 08/29/19 19:11 Total Protein 7.5 gm/dl (6.4-8.2) 08/29/19 19:11 Albumin 4.1 gm/dl (3.4-5.0) 08/29/19 19:11 Globulin 3.4 gm/dl (2.5-4.0) 08/29/19 19:11 Albumin/Globulin Ratio 1.2 (0.9-2) 08/29/19 19:11 Lipase 406 U/L (73-393) H 08/29/19 19:11 Code Status & VTE Plan VTE Prophylaxis Plan VTE Prophylaxis will be ordered: Yes PG Care Time/CCT Total # of Minutes Spent Total Time Spent: 65 Total Time Spent with Patient: Total time spent is greater than 50% in coordination of care (as documented) at patient's floor/unit and/or counseling patient: (1) Pneumonia Laterality: right Lung location: upper lobe of lung Pneumonia type: due to unspecified organism Qualified Code(s): J18.1 - Lobar pneumonia, unspecified organism
[2019-08-29] MEDS: AMLODIPINE BESYLATE 5 MG TAB PO SCH (23:30)
[2019-08-29] MEDS: methylPREDNISolone 40 MG in SYRINGE 0 ML IV SCH (23:31)
[2019-08-29] MEDS: HydrALAZINE 10 MG TAB PO SCH (23:31)
[2019-08-29] MEDS: BENAZEPRIL HCL 10 MG TAB PO SCH (23:31)
[2019-08-29] MEDS ORDERED: KETOROLAC TROMETHAMINE 15 MG/ML VIAL IV PRN (23:37)
[2019-08-29] MEDS ORDERED: HYDROmorphone INJ 0.5 MG/0.5 ML SYR IV PRN (23:37)
[2019-08-29] MEDS ORDERED: ACETAMINOPHEN 325 MG TAB PO PRN (23:37)
[2019-08-29] MEDS ORDERED: ONDANSETRON INJ 2 MG/ML 2 ML VIAL IV PRN (23:37)
[2019-08-30] MEDS: sulfaSALAzine 500 MG TABEC PO SCH ×3 (00:54→19:32)
[2019-08-30] MEDS ORDERED: PANTOprazole 40 MG TAB PO STA (02:07)
[2019-08-30] MEDS: ENOXAPARIN INJ 40 MG/0.4 ML SYR SQ SCH ×2 (02:32→08:14)
[2019-08-30] MEDS ORDERED: INFLUENZA ADMINISTRATION CHARGE ONE (04:30)
[2019-08-30] MEDS ORDERED: INFLUENZA VIRUS QUAD VACCINE 0.5 ML SYR IM ONE (04:30)
[2019-08-30] MEDS: methylPREDNISolone 40 MG in SYRINGE 0 ML IV SCH ×2 (05:59→11:00)
[2019-08-30 06:22] LABS: Hematocrit (blood only) 53.3 % (42-52); Hemoglobin 18.1 g/dL (14.0-18.0); Mean Corpuscular Hemoglobin 33.2 pg (25-34); Mean Corpuscular Volume 97.8 fL (80-100); Mean Platelet Volume 9.4 fL (7.4-10.4); Platelet Count 178 K/uL (130-400); RDW Coefficient of Variation 12.5 % (11.5-14.5); RDW Standard Deviation 44.6 fL (36.4-46.3); Red Blood Count 5.45 M/uL (4.7-6.1); White Blood Count 11.01 K/uL (4.8-10.8)
[2019-08-30 06:52] LABS: BUN Creatinine Ratio 12.3 (10-20); Calcium 9.4 mg/dl (8.5-10.1); Creatinine Clr Calc Pharmacy 78.4 ml/min; Est GFR (African American) 58.7; Est GFR (Non-African American) 50.6; Potassium 4.5 mmol/L (3.5-5.1)
[2019-08-30] MEDS: MAGNESIUM OXIDE 400 MG TAB PO SCH (07:46)
[2019-08-30] MEDS: BENAZEPRIL HCL 10 MG TAB PO SCH ×2 (07:47→19:33)
[2019-08-30] MEDS: AMLODIPINE BESYLATE 5 MG TAB PO SCH ×2 (08:14→19:31)
[2019-08-30] MEDS: HydrALAZINE 10 MG TAB PO SCH ×2 (08:15→19:31)
[2019-08-30] MEDS ORDERED: AMLODIPINE BENAZEPRIL PO SCH (09:00)
[2019-08-30] MEDS ORDERED: GLUCOSAMINE CHONDROIT VIT C MN PO SCH (09:00)
[2019-08-30] MEDS ORDERED: cefTRIAXone SODIUM 2,000 MG in DEXTROSE 5% 50 ML IV SCH (12:00)
[2019-08-30 12:42] LABS: Thyroid Stimulating Hormone 0.706 uIu/ml (0.300-4.500)
[2019-08-30] MEDS: DOXYCYCLINE HYCLATE 100 MG in DEXTROSE 5% 100 ML IV SCH ×2 (12:55→21:20)
--- NOTE | 2019-08-30 13:37 | Hospitalist Progress Note ---
Date of Service August 30, 2019 Assessment & Plan (1) Acute respiratory failure with hypoxia: Continue admits to PCU on telemetry for respiratory failure and hypoxia most likely due to pneumonia and pulmonary edema. Strict in and out Monitor fluid intake and restrict to 1200 mL of free water daily p.o. Low-sodium diet Started Lasix 20 mg IV twice daily for pulmonary edema BNP normal 84 Serum electrolytes and replenish Levofloxacin IV switched to ceftriaxone and doxycycline for community-acquired pneumonia. Patient is now better and does not need supplemental oxygen. Would recommend sleep study. (2) Pneumonia: Right upper lobe Continue ceftriaxone and doxycycline for community-acquired pneumonia. Hold Solu-Medrol while patient has pulmonary edema Continue taper prednisone at 5mg daily on 08/31. Duonebs prn. Started Symbicort 2 puffs twice daily. (3) Pleuritic chest pain: Pain control ordered. (4) Rheumatoid arthritis: continue sulfasalazine receives Actemra monthly (5) GERD (gastroesophageal reflux disease): Continue pantoprazole. (6) HTN (hypertension): Continue atenolol, amlodipine, benazepril, and hydralazine, since blood pressure is poorly controlled added hydralazine 10 mg p.o. 4 times daily as needed for systolic blood pressure 160 and diastolic over 90. (7) Sleep apnea: Patient is Mallampati class IV. We will start CPAP while in the hospital for obstructive sleep apnea. Patient should have a sleep study as an outpatient. Present on Admission?: Yes Subjective Patient seen and examined at the bedside. He is shortness of breath is slowly improving. He is above 92% on room air. Patient has history of rheumatoid arthritis and received infusion on Monday. On the chest x-rays appears that he has small right pleural effusion with associated right lower lobe atelectasis/consolidation. Patient also has mild lower lobe bronchial wall thickening. And borderline enlarged mediastinal lymph nodes. There is a stable 16 mm left upper lobe pulmonary nodule seen on the CTA of the chest. Patient denies fever, chills, chest pain, shortness of breath, abdominal pain, frequency, urgency. Patient has hypertension which is difficult to control despite of being on several agents for high blood pressure. Review of Systems Review of Systems: All systems reviewed & are unremarkable except as noted in HPI & below Physical Exam Constitutional: WD/WN, vitals as above well developed and + obese Eyes: PERRL, conjunctivae normal, anicteric sclerae ENMT: external ear and nose normal, oropharynx normal Mallampati Class: IV Neck: trachea midline, no thyromegaly Respiratory: Auscultation: + crackles and + wheezes Cardiovascular: RRR, no murmur, no edema Gastrointestinal (Abdomen): normal bowel sounds, soft, nontender, no hepa tosplenomegaly Musculoskeletal: no cyanosis or clubbing, extremities motor strength 5/5 Skin: no rashes, warm and dry Neurologic: patellar DTR's 2+ bilat, sensation intact Psychiatric: A+Ox3, euthymic affect Lymphatic: no cervical or axillary lymphadenopathy Results & Data Vital Signs (Past 12 Hours) Vital Signs Temp Pulse Pulse Resp BP BP Pulse Ox 08/30/19 11:07 36.4 C L 91 H 18 159/83 H 161/93 H 90 08/30/19 08:00 62 08/30/19 07:07 67 20 167/95 H 90 08/30/19 03:00 36.8 C 68 14 159/91 H 90 PG Care Time/CCT Total # of Minutes Spent Total Time Spent with Patient: Total time spent is greater than 50% in coordination of care (as documented) at patient's floor/unit and/or counseling patient: (1) Pneumonia Laterality: right Lung location: upper lobe of lung Pneumonia type: due to unspecified organism Qualified Code(s): J18.1 - Lobar pneumonia, unspecified organism
[2019-08-30] MEDS ORDERED: HydrALAZINE 10 MG TAB PO PRN (15:22)
[2019-08-30 16:26] LABS: Influenza A virus by PCR Neg for Influ A (Neg); Influenza B virus by PCR Neg for Influ B (Neg)
[2019-08-30] MEDS: FUROSEMIDE 20 MG in SYRINGE 0 ML IV SCH (17:21)
[2019-08-30] MEDS: ATENOLOL 50 MG TABLET PO SCH (19:31)
[2019-08-30] MEDS: BUDESONIDE/FORMOTEROL FUMARATE 160/4.5 60 PUFFS/INHALER INH SCH (19:34)
[2019-08-30] MEDS ORDERED: LEVOFLOXACIN/D5W 750 MG/150 ML BAG IV SCH (21:00)
[2019-08-30] MEDS ORDERED: PANTOprazole 40 MG TAB PO SCH (21:00)
[2019-08-31 06:27] LABS: Hematocrit (blood only) 51.1 % (42-52); Hemoglobin 17.6 g/dL (14.0-18.0); Mean Corpuscular Hemoglobin 33.8 pg (25-34); Mean Corpuscular Hgb Conc 34.4 g/dL (32-36); Mean Corpuscular Volume 98.1 fL (80-100); Mean Platelet Volume 9.5 fL (7.4-10.4); Platelet Count 214 K/uL (130-400); RDW Coefficient of Variation 12.7 % (11.5-14.5); RDW Standard Deviation 45.3 fL (36.4-46.3); Red Blood Count 5.21 M/uL (4.7-6.1); White Blood Count 21.49 K/uL (4.8-10.8)
[2019-08-31 06:43] LABS: BUN Creatinine Ratio 16.4 (10-20); Calcium 9.1 mg/dl (8.5-10.1); Creatinine Clr Calc Pharmacy 82.6 ml/min; Est GFR (African American) 62.7; Est GFR (Non-African American) 54.1; Potassium 4.2 mmol/L (3.5-5.1)
[2019-08-31] MEDS: FUROSEMIDE 20 MG in SYRINGE 0 ML IV SCH (08:03)
[2019-08-31] MEDS: sulfaSALAzine 500 MG TABEC PO SCH ×2 (08:03→21:02)
[2019-08-31] MEDS: LEVOFLOXACIN/D5W 750 MG/150 ML BAG IV SCH (08:03)
[2019-08-31] MEDS: predniSONE 5 MG TAB PO SCH (08:03)
[2019-08-31] MEDS: AMLODIPINE BESYLATE 5 MG TAB PO SCH ×2 (08:04→21:00)
[2019-08-31] MEDS: MAGNESIUM OXIDE 400 MG TAB PO SCH (08:04)
[2019-08-31] MEDS: HydrALAZINE 10 MG TAB PO SCH ×2 (08:05→21:01)
[2019-08-31] MEDS: ENOXAPARIN INJ 40 MG/0.4 ML SYR SQ SCH (08:05)
[2019-08-31] MEDS: BENAZEPRIL HCL 10 MG TAB PO SCH ×2 (08:05→21:01)
[2019-08-31] MEDS: BUDESONIDE/FORMOTEROL FUMARATE 160/4.5 60 PUFFS/INHALER INH SCH ×2 (08:06→21:02)
--- NOTE | 2019-08-31 16:17 | Hospitalist Progress Note ---
Date of Service August 31, 2019 Assessment & Plan (1) Acute respiratory failure with hypoxia: Continue admits to PCU on telemetry for respiratory failure and hypoxia most likely due to pneumonia and pulmonary edema. Patient has leukocytosis today of 21.49. He responded better on levofloxacin 750 mg IV which he received a day prior. Discontinue ceftriaxone and doxycycline and restart levofloxacin 750 mg IV daily Strict in and out Monitor fluid intake and restrict to 1200 mL of free water daily p.o. Low-sodium diet Patient appears euvolemic. His lungs are clear. Discontinued Lasix 20 mg IV twice daily for pulmonary edema. TTE : The left ventricle is grossly normal size. Ejection fraction 55 to 60%. The left ventricular wall motion is normal. Right ventricle is normal in size and function. Aortic valve sclerosis mild, without significant aortic valvular stenosis. Grade 1 diastolic dysfunction abnormal relaxation pattern. Patient referred to cardiac stress test after resolution of the pneumonia. Follow-up with cardiology as an outpatient BNP normal 84 Serum electrolytes and replenish Patient is now better and does not need supplemental oxygen. Would recommend sleep study. Will start CPAP while patient is in the hospital. (2) Pneumonia: Right upper lobe Continue levofloxacin 750 mg IV daily Pulmonary edema resolved Continue taper prednisone at 5mg daily on 08/31. Duonebs prn. Continue Symbicort 2 puffs twice daily. (3) Pleuritic chest pain: Pain control ordered. (4) Rheumatoid arthritis: continue sulfasalazine receives Actemra monthly (5) GERD (gastroesophageal reflux disease): Hold pantoprazole due to acute kidney insufficiency. Avoid nephrotoxic agents (6) HTN (hypertension): Continue atenolol, amlodipine, benazepril, and hydralazine, since blood pressure is poorly controlled added hydralazine 10 mg p.o. 4 times daily as needed for systolic blood pressure 160 and diastolic over 90. (7) Sleep apnea: Patient is Mallampati class IV. We will start CPAP while in the hospital for obstructive sleep apnea. Patient should have a sleep study as an outpatient. (8) Acute kidney injury: Creatinine 1.41, little bit better than yesterday 1.49. GFR of 54.1. Nephrotoxic agents.Pantoprazole on hold due to possible nephrotoxic adverse effects. Present on Admission?: Yes Subjective Patient seen and examined at the bedside. Patient reports feeling better today. He is above 92% on room air. Patient has history of rheumatoid arthritis and received infusion on Monday. On the chest x-rays appears that he has small right pleural effusion with associated right lower lobe atelectasis/consolidation. Patient also has mild lower lobe bronchial wall thickening. And borderline enlarged mediastinal lymph nodes. There is a stable 16 mm left upper lobe pulmonary nodule seen on the CTA of the chest. Patient denies fever, chills, chest pain, shortness of breath, abdominal pain, frequency, urgency. Patient has hypertension which is difficult to control despite of being on several agents for high blood pressure. Review of Systems Review of Systems: All systems reviewed & are unremarkable except as noted in HPI & below Physical Exam Constitutional: WD/WN, vitals as above well developed and + obese Eyes: PERRL, conjunctivae normal, anicteric sclerae ENMT: external ear and nose normal, oropharynx normal Mallampati Class: IV Neck: trachea midline, no thyromegaly Respiratory: Auscultation: + crackles (Resolved) and + wheezes (Improving) Cardiovascular: RRR, no murmur, no edema Gastrointestinal (Abdomen): normal bowel sounds, soft, nontender, no hepatosplenomegaly Musculoskeletal: no cyanosis or clubbing, extremities motor strength 5/5 Skin: no rashes, warm and dry Neurologic: patellar DTR's 2+ bilat, sensation intact Psychiatric: A+Ox3, euthymic affect Lymphatic: no cervical or axillary lymphadenopathy Results & Data Vital Signs (Past 12 Hours) Vital Signs Temp Pulse Pulse Resp BP BP Pulse Ox 08/31/19 15:25 36.5 C 67 20 121/78 90 08/31/19 15:13 73 08/31/19 11:11 36.4 C L 68 18 131/89 90 08/31/19 08:00 61 08/31/19 07:02 36.6 C 65 20 149/90 H 163/99 H 91 PG Care Time/CCT Total # of Minutes Spent Total Time Spent with Patient: Total time spent is greater than 50% in coordination of care (as documented) at patient's floor/unit and/or counseling patient: (1) Pneumonia Laterality: right Lung location: upper lobe of lung Pneumonia type: due to unspecified organism Qualified Code(s): J18.1 - Lobar pneumonia, unspecified organism
[2019-08-31 16:20] LABS: Basophils % (auto) 0.7 %; Eosinophils # (auto) 0.38 K/uL (0-0.5); Eosinophils % (auto) 2.5 %; Hematocrit (blood only) 51.9 % (42-52); Lymphocytes # (auto) 3.06 K/uL (1.2-3.4); Lymphocytes % (auto) 20.1 %; Mean Corpuscular Hemoglobin 34.3 pg (25-34); Mean Corpuscular Volume 98.9 fL (80-100); Mean Platelet Volume 9.2 fL (7.4-10.4); Monocytes # (auto) 1.54 K/uL (0.11-0.59); Monocytes % (auto) 10.1 %; Neutrophils # (auto) 9.87 K/uL (1.4-6.5); Neutrophils % (auto) 64.6 %; Platelet Count 219 K/uL (130-400); RDW Coefficient of Variation 12.8 % (11.5-14.5); RDW Standard Deviation 45.7 fL (36.4-46.3); Red Blood Count 5.25 M/uL (4.7-6.1); White Blood Count 15.25 K/uL (4.8-10.8)
[2019-08-31 16:30] LABS: Mean Corpuscular Hgb Conc 34.7 g/dL (32-36)
[2019-08-31] MEDS ORDERED: predniSONE 5 MG TAB PO ONE (20:09)
[2019-08-31] MEDS: ATENOLOL 50 MG TABLET PO SCH (21:03)
[2019-09-01 07:07] VITALS: TEMP 97.5
[2019-09-01] MEDS: BENAZEPRIL HCL 10 MG TAB PO SCH (07:55)
[2019-09-01] MEDS: sulfaSALAzine 500 MG TABEC PO SCH (07:55)
[2019-09-01] MEDS: AMLODIPINE BESYLATE 5 MG TAB PO SCH (07:56)
[2019-09-01] MEDS: predniSONE 5 MG TAB PO SCH (07:56)
[2019-09-01] MEDS: MAGNESIUM OXIDE 400 MG TAB PO SCH (07:56)
[2019-09-01] MEDS: BUDESONIDE/FORMOTEROL FUMARATE 160/4.5 60 PUFFS/INHALER INH SCH (07:56)
[2019-09-01] MEDS: HydrALAZINE 10 MG TAB PO SCH (07:57)
[2019-09-01] MEDS: ENOXAPARIN INJ 40 MG/0.4 ML SYR SQ SCH (07:57)
[2019-09-01] MEDS: LEVOFLOXACIN/D5W 750 MG/150 ML BAG IV SCH (08:18)
--- NOTE | 2019-09-01 10:43 | Hospitalist Progress Note ---
Date of Service September 01, 2019 Assessment & Plan (1) Acute respiratory failure with hypoxia: Patient is feeling better and he is eager to go home. Recommended to follow-up with your PCP within a 7 days.Repeat CBC and CMP at that point. Recommend to have liver sonogram surveillance for follow-up on hepatic steatosis as an outpatient, we also recommend to have cardiac stress echo and follow-up with labor utilization superintendent within 1 to 2 weeks. Finally we recommend to have as soon as possible sleep study for obstructive sleep apnea. For patient's pneumonia he will continue levofloxacin 750 mg once a day for 5 days. Continue inhalers as directed. We recommend to patient to follow-up with [facility] for stable 16 mm left upper lobe pulmonary nodule within the next 1-[address] scan of the chest as per their recommendations. We we also informed patient that pantoprazole is on hold because it adversary affecting his kidneys. Patient was advised to take over the counter TUMS as needed for acid reflux. Patient was encouraged to discuss with his PCP and commercial cleaner duration of your Prednisone and how much longer you would need to continue it. TTE : The left ventricle is grossly normal size. Ejection fraction 55 to 60%. The left ventricular wall motion is normal. Right ventricle is normal in size and function. Aortic valve sclerosis mild, without significant aortic valvular stenosis. Grade 1 diastolic dysfunction abnormal relaxation pattern. Patient referred to cardiac stress test after resolution of the pneumonia. Follow-up with cardiology as an outpatient BNP normal 84 Patient is now better and does not need supplemental oxygen. (2) Pneumonia: Right upper lobe-resolved Switch IV levofloxacin 750 mg to p.o. for 5 more days after discharge. Pulmonary edema resolved Continue taper prednisone at 5mg daily on 08/31. On discharge patient switched to albuterol every 6 hours as needed for shortness of breath Continue Symbicort 2 puffs twice daily. (3) Pleuritic chest pain: Resolved. (4) Rheumatoid arthritis: continue sulfasalazine receives Actemra monthly (5) GERD (gastroesophageal reflux disease): Hold pantoprazole due to acute kidney insufficiency. Avoid nephrotoxic agents (6) HTN (hypertension): Continue atenolol, amlodipine, benazepril, and hydralazine, since blood pressure is poorly controlled added hydralazine 10 mg p.o. 4 times daily as needed for systolic blood pressure 160 and diastolic over 90. (7) Sleep apnea: Patient is Mallampati class IV. Patient should have a sleep study as an outpatient. (8) Acute kidney injury: Improved. Avoid nephrotoxic agents.Pantoprazole on hold due to possible nephrotoxic adverse effects. Subjective Patient seen and examined at the bedside. Patient reports being ready to be discharged home. He said he is going to follow-up closely with his primary care physician this week. Patient is now on room air and oxygenating above 92%. Patient denies fever, chills, chest pain, shortness of breath, abdominal pain, frequency, urgency. Patient has hypertension which is difficult to control despite of being on several agents for high blood pressure. Review of Systems Review of Systems: All systems reviewed & are unremarkable except as noted in HPI & below Physical Exam Constitutional: WD/WN, vitals as above well developed and + obese Eyes: PERRL, conjunctivae normal, anicteric sclerae ENMT: external ear and nose normal, oropharynx normal Mallampati Class: IV Neck: trachea midline, no thyromegaly Respiratory: Auscultation: + crackles (Resolved) and + wheezes (Improving) Cardiovascular: RRR, no murmur, no edema Gastrointestinal (Abdomen): normal bowel sounds, soft, nontender, no hepatosplenomegaly Musculoskeletal: no cyanosis or clubbing, extremities motor strength 5/5 Skin: no rashes, warm and dry Neurologic: patellar DTR's 2+ bilat, sensation intact Psychiatric: A+Ox3, euthymic affect Lymphatic: no cervical or axillary lymphadenopathy Results & Data Vital Signs (Past 12 Hours) Vital Signs Temp Pulse Pulse Resp BP Pulse Ox 09/01/19 08:00 59 L 09/01/19 07:06 36.4 C L 56 L 22 134/87 94 09/01/19 04:15 36.9 C 55 L 20 129/56 L 93 08/31/19 23:22 36.6 C 60 18 131/78 95 PG Care Time/CCT Total # of Minutes Spent Total Time Spent with Patient: Total time spent is greater than 50% in coordination of care (as documented) at patient's floor/unit and/or counseling patient: (1) Pneumonia Laterality: right Lung location: upper lobe of lung Pneumonia type: due to unspecified organism Qualified Code(s): J18.1 - Lobar pneumonia, unspecified organism
[2019-09-01] MEDS ORDERED: OMEGA-3 (PURIFIED FISH OIL) 1 GM CAP PO SCH (10:45)
[2019-09-01] MEDS ORDERED: EZETIMIBE 10 MG TABLET PO SCH (10:45)
[2019-09-01 11:22] LABS: Basophils # (auto) 0.08 K/uL (0-0.2); Basophils % (auto) 0.6 %; Eosinophils # (auto) 0.65 K/uL (0-0.5); Eosinophils % (auto) 5.2 %; Hematocrit (blood only) 52.3 % (42-52); Immature Granulocytes # (auto) 0.34 K/uL (0.00-0.02); Immature Granulocytes % (auto) 2.7 %; Lymphocytes % (auto) 17.5 %; Mean Corpuscular Hemoglobin 34.1 pg (25-34); Mean Corpuscular Volume 99.1 fL (80-100); Mean Platelet Volume 9.7 fL (7.4-10.4); Monocytes # (auto) 1.95 K/uL (0.11-0.59); Monocytes % (auto) 15.5 %; Neutrophils # (auto) 7.33 K/uL (1.4-6.5); Neutrophils % (auto) 58.5 %; Platelet Count 207 K/uL (130-400); RDW Coefficient of Variation 12.9 % (11.5-14.5); RDW Standard Deviation 46.5 fL (36.4-46.3); Red Blood Count 5.28 M/uL (4.7-6.1); White Blood Count 12.55 K/uL (4.8-10.8)
[2019-09-01 11:25] LABS: Mean Corpuscular Hgb Conc 34.4 g/dL (32-36)
[2019-09-01 11:46] LABS: Albumin Level 3.4 gm/dl (3.4-5.0); BUN Creatinine Ratio 20.7 (10-20); Calcium 9.3 mg/dl (8.5-10.1); Creatinine Clr Calc Pharmacy 85.9 ml/min; Est GFR (African American) 66.1; Est GFR (Non-African American) 57.1; Potassium 3.9 mmol/L (3.5-5.1)
[2019-09-01 11:50] LABS: Albumin Globulin Ratio 1.1 (0.9-2); Bilirubin,Total 0.4 mg/dl (0.2-1); Globulin 3.2 gm/dl (2.5-4.0); Total Protein 6.6 gm/dl (6.4-8.2)
[2019-09-01 11:54] VITALS: O2SAT 90
[2019-09-01 13:51] VITALS: BP 164/94; PULSE 65
--- NOTE | 2019-09-01 20:16 | Discharge Summary ---
Date of Service September 01, 2019 Admission HPI Per Admitting Provider 59 y/o male who presented to the ED with right rib cage pain worse with deep breath of 8 hours duration. He had associated SOB. No cough, F/C, sore throat, left sided chest pain, or N/V/D. He did not feel well through the day having increased fatigue. He is on immunotherapy for RA. He has had pneumonia in the past. He stopped smoking 19 years prior. Primary Care Provider: Osmar Cabral MD Admission Exam Per Admitting Provider General- adult male, NAD Head- atraumatic Eyes- PERRL, EOMI, anicteric ENT- oropharynx clear Neck- supple, no JVD, no adenopathy, no thyromegaly. Lungs- CTA b/l no R/R/W Heart- regular rhythm; no murmur, no gallop, no rub appreciated Abdomen- normal bowel sounds, soft, nontender. Extremities- no pretibial edema, no calf tenderness; peripheral pulses intact Neuro- alert, oriented x 3; PERRL, EOMI; wall steamer II-XII grossly intact, Non-focal. Skin- warm & dry Principal Diagnosis none Discharge Exam Constitutional WD/WN, vitals as above well developed and + obese Eyes PERRL, conjunctivae normal, anicteric sclerae ENMT external ear and nose normal, oropharynx normal Mallampati Class: IV Neck trachea midline, no thyromegaly Respiratory Auscultation: + crackles (Resolved) and + wheezes (Improving) Cardiovascular RRR, no murmur, no edema Gastrointestinal (Abdomen) normal bowel sounds, soft, nontender, no hepatosplenomegaly Musculoskeletal no cyanosis or clubbing, extremities motor strength 5/5 Skin no rashes, warm and dry Neurologic patellar DTR's 2+ bilat, sensation intact Psychiatric A+Ox3, euthymic affect Lymphatic no cervical or axillary lymphadenopathy Discharge Data Allergies Allergy/AdvReac Type Severity Reaction Status Date / Time No Known Allergies Allergy Verified 08/29/19 20:10 Consultations 08/29/19 22:27 ED Decision to Admit Stat 09/01/19 13:45 Consult CANDYG librarian head Routine Ordered Studies 08/29/19 18:27 CT angio chest PE protocol Stat Hospital Course (1) Acute respiratory failure with hypoxia: Patient is feeling better and he is eager to go home. Recommended to follow-up with your PCP within a 7 days.Repeat CBC and CMP at that point. Recommend to have liver sonogram surveillance for follow-up on hepatic steatosis as an outpatient, we also recommend to have cardiac stress echo and follow-up with publications inspector within 1 to 2 weeks. Finally we recommend to have as soon as possible sleep study for obstructive sleep apnea. For patient's pneumonia he will continue levofloxacin 750 mg once a day for 5 days. Continue inhalers as directed. We recommend to patient to follow-up with [facility] specialist clinic for stable 16 mm left upper lobe pulmonary nodule within the next 1-[address] weeks [address] to [address] scan of the chest as per their recommendations. We we also informed patient that pantoprazole is on hold because it adversary affecting his kidneys. Patient was advised to take over the counter TUMS as needed for acid reflux. Patient was encouraged to discuss with his PCP and cost estimator duration of your Prednisone and how much longer you would need to continue it. TTE : The left ventricle is grossly normal size. Ejection fraction 55 to 60%. The left ventricular wall motion is normal. Right ventricle is normal in size and function. Aortic valve sclerosis mild, without significant aortic valvular stenosis. Grade 1 diastolic dysfunction abnormal relaxation pattern. Patient referred to cardiac stress test after resolution of the pneumonia. Follow-up with cardiology as an outpatient BNP normal 84 Patient is now better and does not need supplemental oxygen. (2) Pneumonia: Right upper lobe-resolved Switch IV levofloxacin 750 mg to p.o. for 5 more days after discharge. Pulmonary edema resolved Continue taper prednisone at 5mg daily on 08/31. On discharge patient switched to albuterol every 6 hours as needed for shortness of breath Continue Symbicort 2 puffs twice daily. (3) Pleuritic chest pain: Resolved. (4) Rheumatoid arthritis: continue sulfasalazine receives Actemra monthly (5) GERD (gastroesophageal reflux disease): Hold pantoprazole due to acute kidney insufficiency. Avoid nephrotoxic agents (6) HTN (hypertension): Continue atenolol, amlodipine, benazepril, and hydralazine, since blood pressure is poorly controlled added hydralazine 10 mg p.o. 4 times daily as needed for systolic blood pressure 160 and diastolic over 90. (7) Sleep apnea: Patient is Mallampati class IV. Patient should have a sleep study as an outpatient. (8) Acute kidney injury: Improved. Avoid nephrotoxic agents.Pantoprazole on hold due to possible nephrotoxic adverse effects. Total Time Total Time Spent Total Time Spent (In Minutes): over 30 min Discharge Plan Discharge Items Patient Disposition: Home - Self-Care Reason For Visit: PNEUMONIA,RIGHT Discharge Diagnosis: Pneumonia Condition on Discharge: Good Health Concerns: noncompliance Activity: As commented below Lifting: Gradually increase as tolerated and No more than 5 pounds Non-emergency contact: Primary Care Provider, Specialist and Records Supervisor Call non-emergency contact if: you have any medication questions, your symptoms worsen, your pain is not controlled, your pain is worsening, your pain is unusual for you, your pain is concerning for you, you have a fever, your temperature is above 101, your temperature is above 101.5 and your wound has increased redness Follow-up/Referrals: Osmar Cabral MD [Primary Care Provider] - Diet: Heart Healthy Addtl Attending Provider Instructions: Follow-up with your PCP within a 7 days. Please repeat CBC and CMP at that point. We recommend to have liver sonogram surveillance for follow-up on hepatic steatosis as an outpatient, we also recommend to have cardiac stress echo and follow-up with publications inspector within 1 to 2 weeks. Finally we recommend you to have as soon as possible sleep study for obstructive sleep apnea. For your pneumonia he will continue levofloxacin 750 mg once a day for 5 days. Continue inhalers as directed. We recommend you to follow-up with [facility] product specialist clinic for stable 16 mm left upper lobe pulmonary nodule within the next 1-[address] scan of the chest as per their recommendat ions.We wre going to hold your Pantoprazole because it adversary affecting you kidneys.You can take over the counter TUMS as needed for acid reflux. Please discuss with your PCP and cost estimator duration of your Prednisone and how much longer you would need to continue it. Pending Studies at Discharge: Yes Studies:: a1c Stand-Alone Forms: [employer], Smoking Cessation Medications and DC Order Prescriptions: New ezetimibe [Zetia] 10 mg Tablet 10 mg PO QAM Qty: 30 RF: 0 Fish Oil 340-1,000 mg Capsule 1 g PO BID Qty: 60 RF: 0 Symbicort 160-4.5 mcg/actuation Hfa Aerosol Inhaler 2 puff inhalation BID Qty: 10.2 RF: 0 levofloxacin [Levaquin] 750 mg tablet 750 mg PO DAILY 5 Days Qty: 5 RF: 0 albuterol sulfate 90 mcg/actuation aerosol powdr breath activated 2 puffs INH Q6H PRN (Reason: shortness of breath or wheezing) Qty: 1 RF: 0 magnesium oxide 400 mg (241.3 mg magnesium) Tablet 400 mg PO QAM Qty: 30 RF: 0 Continued prednisone 5 mg tablet 5 - 10 mg PO DAILY RF: 0 hydralazine 10 mg tablet 10 mg PO BID RF: 0 atenolol 100 mg Tablet 100 mg PO HS RF: 0 epvqsxrzqlw-lcwuwplow-uyi C-Mn Capsule 1,500 mg PO QAM RF: 0 sulfasalazine 500 mg tablet,delayed release (DR/EC) 1,500 mg PO BID RF: 0 amlodipine-benazepril 5-20 mg capsule 2 cap PO QAM RF: 0 amlodipine-benazepril 5-20 mg capsule 1 cap PO QPM RF: 0 Actemra 400 mg/20 mL (20 mg/mL) Solution 800 mg IV MONTHLY RF: 0 Discontinued pantoprazole 40 mg tablet,delayed release (DR/EC) 40 mg PO HS RF: 0 magnesium oxide 400 mg (241.3 mg magnesium) Tablet 400 mg PO QAM RF: 0 Discharge Orders: Discharge Order (Routine); Ordered 09/01/19 Ordered By: Madhuri Diaz/Other Patient Handouts: Fish Oil Oral capsule liquid filled, Ipratropium [place] Albuterol Sulfate Inhaler, Ezetimibe Oral tablet, Budesonide Formoterol Fumarate Inhaler, Pneumonia Admission Data Admit Date/Time: 08/29/19 22:54 Attending Provider: Madhuri Daugherty Admit Provider: Ritchie Omer Primary Care Provider: Osmar Cabral Other Providers: Ritchie Omer Other Interventions: Discharge Summary Assessment (RN) Last Done: 09/01/19 13:48 DC Date/Time DO NOT enter until pt leaves facility: 09/01/19 15:15
[2019-09-02 07:44] LABS: Estimated Average Glucose 94 mg/dl; Hemoglobin A1C 4.9 % (4.5-5.6)
== END 2019-09-01 15:15 | disposition home or self-care (01) | DRG 193 ==
LOC: ED 17:54 → 2S 22:54 → SUATTDRO 22:54 → 2S 23:19

== ENCOUNTER 2022-01-04 13:25 | Inpatient (IN) ==
--- NOTE | 2022-01-04 15:46 | Emergency Department Note ---
History of Present Illness General Chief complaint: Referred by Doctor Stated complaint: DR THORPE, VEIN BLOCKAGE, LEG PAIN Time Seen by Provider: 01/04/22 13:58 History of Present Illness Pleasant 61-year-old male who was referred to the emergency department from his PCPs office for possible vascular compromise of his left lower extremity. According to the patient, he has had history of chronic left lower extremity pain that he attributed to a severely arthritic left knee pain due to rheumatoid arthritis. He follows with Dr. Kent, and has been trying to schedule his surgery between his IV treatments. The patient does not recall which medication that he is administered. Over the past 5 days, the patient reports progressively worsening pain with discoloration of his left foot and toes. The patient reports prior history of heavy tobacco use, but has not smoked within the past 20 years. Pain seems to be worse when resting or lying in bed, occasionally hanging his legs over the bed to help with the pain. The PCP reportedly spoke with Dr. Isabel regarding the patient. The patient currently rates his discomfort a 6 out of 10. Home Medications Medication Instructions Recorded Confirmed Type amlodipine 5 mg-benazepril 20 mg 1 cap PO QPM 10/21/18 01/04/22 History capsule amlodipine 5 mg-benazepril 20 mg 2 cap PO QAM 10/21/18 01/04/22 History capsule atenolol 100 mg tablet 100 mg PO HS 10/21/18 01/04/22 History wzgoqokohep-mhwzcnoin-ioa C-Mn 1,500 mg PO BID 10/21/18 01/04/22 History capsule hydralazine 10 mg tablet 10 mg PO BID 10/21/18 01/04/22 History prednisone 5 mg tablet 10 mg PO QAM 10/21/18 01/04/22 History magnesium oxide 400 mg (241.3 mg 400 mg PO QAM #30 tab 09/01/19 01/04/22 Rx magnesium) tablet famotidine 40 mg tablet 40 mg PO BID 08/14/20 01/04/22 History pantoprazole 40 mg tablet,delayed 40 mg PO QPM 08/14/20 01/04/22 History release multivitamin 1 tab PO QAM 08/17/21 01/04/22 History folic acid 1 mg tablet 1 mg PO DAILY 12/18/21 01/04/22 History methotrexate sodium 2.5 mg tablet 10 mg PO WE 12/18/21 01/04/22 History Allergies Allergy/AdvReac Type Severity Reaction Status Date / Time Penicillins Allergy Mild rash (see Verified 01/04/22 15:48 comments) rosuvastatin AdvReac Mild MUSCLE Verified 01/04/22 16:12 ACHES Past Med/Surg History Medical History Abnormal liver enzymes Chronic, mild, under surveillance with routine labs to monitor - LFTs 07/2021 within normal range Acid reflux controlled CKD (chronic kidney disease) baseline creatinine 1.4-1.5 per chart review-PCP monitoring High cholesterol not on medication currently, h/o statin associated myalgias History of herniated intervertebral disc lumbar, s/p fusion HTN (hypertension) controlled, stable per pt Ischemia of left lower extremity Lung nodule under surveillance, stable x 10 years Rheumatoid arthritis chronic prednisone (current dose 10mg daily), follows with rheumatology Sleep apnea possible per records-on CPAP during PNA hospitalization in past per pt, denies formal sleep apnea testing Surgical History History of arthroscopy of right knee History of left cataract surgery History of lumbar fusion History of right cataract surgery Family History Other No family history of adverse response to anesthesia No pertinent family history Social History Smoking Status: Former smoker Age Quit Using Tobacco: 40; Second Hand Exposure: No; Hx Alcohol Use: Yes Alcohol type: hard liquor Hx Substance Use: No Preferred Language: Northern Irish Communication Ability: Effective Advertising Clerk Required: No Beliefs That Will Affect Care: None Current Living Situation: Spouse current occupational status: employed 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 Feels Safe at Home: Yes Safety Concerns: Feels Safe At This Time Assistive Devices: Glasses Review of Systems 10 system review was performed and was negative except for pertinent positives and negatives as indicated in history of present illness Physical Exam Vital Signs Vital Signs - 24 hr 01/04/22 13:56 Temperature 36.8 C Temperature Source Oral Pulse Rate 64 Respiratory Rate 20 Blood Pressure 134/88 Blood Pressure Mean 103 Blood Pressure Position Sitting Pulse Oximetry 94 Sepsis Recent Fever Within 48 Hours No Sepsis New/Unexplained Change in Mental Status N/A Sepsis Action Taken by Nursing No Action Required CONSTITUTIONAL: Obese male in no acute distress. HEENT: No scleral icterus or conjunctival injection/pallor. NECK: Full active range of motion without discomfort. LYMPHATICS: No cervical chain adenopathy. RESPIRATORY: Clear to auscultation bilaterally with no wheezing, crackles, rhonchi or stridor. CARDIOVASCULAR: Regular rate and rhythm with no murmurs, rubs or gallops. GASTROINTESTINAL: Bowel sounds present in all quadrants. Protuberant but soft and nontender to palpation. MUSCULOSKELETAL: Examination of the left lower extremity shows mild edema. The patient has cyanosis of his left toes, with a few spots of possible necrosis on the plantar tip of the third toe. No other open wounds appreciated. Pedal pulses are not palpable. INTEGUMENTARY: No rash or other significant dermatologic conditions noted. HEMATOLOGIC: No ecchymosis or petechiae. PSYCHIATRIC: Positive affect. NEUROLOGIC: No focal neurologic deficits appreciated. Course Course Initial evaluation was delayed secondary to a busy emergency department. The patient was triaged and placed in the waiting room. Initial venous Doppler studies were ordered per nursing protocol. While the patient was in ultrasound, he was seen and examined by Dr. Isabel. Dr. Isabel then contacted me that the patient has severe peripheral artery disease and ischemia, and that he will admit the patient to his service. Dr. Isabel indicated that he would enter appropriate orders, and has requested that we start an IV and test for COVID-19. After the patient returned to the emergency department, a brief physical exam was performed. The patient refused any analgesics. Please see Dr. Isabel's dictation for further treatment and final disposition. Review of labs does show an elevated white count with left shift and bandemia, likely secondary to chronic steroid use and rheumatoid arthritis history. Coagulation studies are normal. Creatinine is elevated at 1.44. COVID-19 test was negative. Arterial duplex studies of the left lower extremity shows significant stenosis. Chest x-ray shows cardiomegaly and chronic interstitial disease. No pneumothorax or consolidations noted. ECG shows a sinus bradycardia without any ischemic, conductive or infarct changes. The patient refused any analgesics while in the emergency department. Please see Dr. Isabel's dictation for further surgical management and final disposition. Administered Medications Heparin Sodium/Dextrose (Heparin Sodium/Dextrose) 25,000 units in 500 mls @ 36 mls/hr IV .[id number] SVETLANA; Protocol Stop: 02/03/22 16:14 Last Admin: 01/04/22 18:21 Dose: 1,800 units/hr, 36 mls/hr Documented by: [id number] Cosigned by: [id number] Discontinued Medications Acetaminophen/Codeine Phosphate (Acetaminophen W/Codeine #3 1 Tab) 2 tab PO Q6 ONE Stop: 01/04/22 15:57 Last Admin: 01/04/22 17:39 Dose: Not Given Documented by: [id number] Heparin Sodium/Dextrose (Heparin Iv Adult Wt-Based Standard *No* Bolus Protocol) 1 ea IV 1615 ONE; Protocol Stop: 01/04/22 16:16 Last Admin: 01/04/22 18:22 Dose: 1 ea Documented by: [id number] Medical Decision Making Medical Records Attestation: I reviewed the patient's medical records. Home Medications Current Medication List: was personally reviewed by me Laboratory Data Attestation: I reviewed the patient's lab results. Result diagrams: 01/04/22 16:10 01/04/22 18:00 Lab Results 01/04/22 01/04/22 01/04/22 Range/Units 16:10 16:10 16:10 WBC 16.76 H (4.8-10.8) K/uL RBC 5.61 (4.7-6.1) M/uL Hgb 18.3 H (14.0-18.0) g/dL Hct 54.0 H (42-52) % MCV 96.3 (80-100) fL MCH 32.6 (25-34) pg MCHC 33.9 (32-36) g/dL RDW Std Deviation 47.9 H (36.4-46.3) fL RDW Coeff of [place] 13.7 (11.5-14.5) % Plt Count 299 (130-400) K/uL MPV 9.6 (7.4-10.4) fL Immature Gran % (Auto) 1.7 % Neut % (Auto) 64.7 % Lymph % (Auto) 19.6 % [place] % (Auto) 8.9 % Eos % (Auto) 4.1 % Baso % (Auto) 1.0 % Neut # (Auto) 10.84 H (1.4-6.5) K/uL Lymph # (Auto) 3.29 (1.2-3.4) K/uL [place] # (Auto) 1.50 H (0.11-0.59) K/uL Eos # (Auto) 0.68 H (0-0.5) K/uL Baso # (Auto) 0.17 (0-0.2) K/uL Immature Gran # (Auto) 0.28 H (0.00-0.02) K/uL PT 10.6 (9.0-12.0) Seconds INR 1.0 (0.9-1.1) APTT 24.8 (21.0-31.0) Seconds PTT Ratio 0.9 Sodium 139 (136-145) mmol/L Potassium (3.5-5.1) mmol/L Chloride 104 (98-107) mmol/L Carbon Dioxide 26 (21-32) mmol/L Anion Gap 9 (3-11) BUN 24 H (6-23) mg/dl Creatinine 1.44 H (0.6-1.4) mg/dl Est Cr Clr Drug Dosing 75.4 ml/min Est GFR ( Amer) 60.3 ml/min Est GFR (Non-Af Amer) 52.0 ml/min BUN/Creatinine Ratio 16.7 (10-20) Glucose 98 (70-99(Fasting)) mg/dl Calcium 9.6 (8.5-10.1) mg/dl SARS-CoV-2, RNA, NAAT (NEGATIVE) 01/04/22 Range/Units 16:12 WBC (4.8-10.8) K/uL RBC (4.7-6.1) M/uL Hgb (14.0-18.0) g/dL Hct (42-52) % MCV (80-100) fL MCH (25-34) pg MCHC (32-36) g/dL RDW Std Deviation (36.4-46.3) fL RDW Coeff of [place] (11.5-14.5) % Plt Count (130-400) K/uL MPV (7.4-10.4) fL Immature Gran % (Auto) % Neut % (Auto) % Lymph % (Auto) % [place] % (Auto) % Eos % (Auto) % Baso % (Auto) % Neut # (Auto) (1.4-6.5) K/uL Lymph # (Auto) (1.2-3.4) K/uL [place] # (Auto) (0.11-0.59) K/uL Eos # (Auto) (0-0.5) K/uL Baso # (Auto) (0-0.2) K/uL Immature Gran # (Auto) (0.00-0.02) K/uL PT (9.0-12.0) Seconds INR (0.9-1.1) APTT (21.0-31.0) Seconds PTT Ratio Sodium (136-145) mmol/L Potassium (3.5-5.1) mmol/L Chloride (98-107) mmol/L Carbon Dioxide (21-32) mmol/L Anion Gap (3-11) BUN (6-23) mg/dl Creatinine (0.6-1.4) mg/dl Est Cr Clr Drug Dosing ml/min Est GFR ( Amer) ml/min Est GFR (Non-Af Amer) ml/min BUN/Creatinine Ratio (10-20) Glucose (70-99(Fasting)) mg/dl Calcium (8.5-10.1) mg/dl SARS-CoV-2, RNA, NAAT NEGATIVE (NEGATIVE) Imaging Data Attestation: I personally reviewed and interpreted this imaging study as follows: My Impression: Arterial ultrasound of the left lower extremity shows multiple areas of stenosis. Portable chest x-ray shows cardiomegaly and chronic interstitial disease. Radiologist reports were also reviewed. Radiologist's Impression: Duplex Scan Lower Extremity Artery 01/04/22 14:04 ULTRASOUND LEFT LOWER EXTREMITY ARTERIAL; ANKLE-BRACHIAL INDICES CLINICAL HISTORY: Left foot pain and discoloration. COMPARISON STUDY: No priors. TECHNIQUE: Real-time grayscale and color Doppler sonography of the arteries of the left lower extremity is performed from the inguinal crease to the foot. A nkle-brachial indices were assessed. FINDINGS: Ankle brachial indices: Right brachial pressure measures 131 and left brachial pressure measures 134. Pressures in the right posterior tibial artery measure 116 for an JOHNNIE of 0.9, pressures in the right dorsalis pedis measure 126 for an JOHNNIE of 0.9. Pressures in the left posterior tibial artery measure 118 for an JOHNNIE of 0.9, and pressures in the left dorsalis pedis measure 118 for an JOHNNIE of 0.9. Left lower extremity: Atherosclerotic plaque and irregularity seen throughout the arteries of the left lower extremity. There are triphasic waveforms in the common femoral artery with velocities measuring up to 80 cm/s. The profunda femoris artery is patent with velocities measuring up to 30 cm/s. There is blunted arterial upstroke seen in the superficial femoral and popliteal arteries, with monophasic to biphasic arterial waveforms. Velocities in the superficial femoral artery measure up to 84 cm/s, and velocities in the popliteal artery measure up to 55 cm/s. There is three-vessel runoff to the foot. There is blunted arterial upstroke in the calf vessels with monophasic to biphasic waveforms. Velocities in the calf arteries measure up to 61 cm/s. The dorsalis pedis artery is patent with velocities measuring up to 25 cm/s. IMPRESSION: 1. Findings of peripheral vascular disease as above with no sonographic evidence of focal high-grade stenosis or vessel occlusion throughout the arteries of the left lower extremity. 2. Ankle-brachial indices as above. Dictated: 01/04/2022 4:20 PM Transcribed: 01/04/2022 4:38 PM Rehana [id number] [facility] Electronically signed by: Cesar Shepard M.D. 01/04/2022 4:44 PM ECG Data Attestation: I personally reviewed and interpreted this ECG as follows: Indication: + other (Preop) Rate (beats per minute): 55 Rhythm: + sinus bradycardia ECG Intervals/blocks: + Normal QRS, + Normal QT and + Normal DE ECG [place]: + Normal ECG ST segments: + Normal ST segments Comparison ECG Date: from (12/18/2021) Change: no significant change Blood Pressure Blood Pressure Findings: Normal blood pressure MDM Narrative Patient presents to the emergency department with concerning physical exam findings of ischemic toes secondary to severe peripheral artery disease. The patient will be further evaluated and treated by Dr. Isabel, vascular surgeon. Patient does have underlying rheumatoid arthritis as well. Patient has significant risk factor in the past of heavy tobacco use. Impression & Plan Ischemia of left lower extremity, Severe peripheral arterial disease, Rheumatoid arthritis Discharge Plan Visit Data Chief Complaint: Referred by Doctor Stated Complaint: DR REFERRED, VEIN BLOCKAGE, LEG PAIN ED Provider: Cesar Palencia ED Midlevel Provider: Rogelio Mayberry Discharge Problem: Ischemia of left lower extremity, Severe peripheral arterial disease, Rheumatoid arthritis Patient Disposition: Admitted As Inpatient Discharge Instructions Interventions: ED Discharge Assessment Last Done: 01/04/22 18:03 Discharge Problem: Rheumatoid arthritis Qualifiers: Rheumatoid arthritis location: multiple sites Rheumatoid factor presence: unspecified presence Qualified Code(s): M06.9 - Rheumatoid arthritis, unspecified
[2022-01-04] MEDS ORDERED: ONDANSETRON INJ 2 MG/ML 2 ML VIAL IV PRN (15:51)
[2022-01-04] MEDS ORDERED: ACETAMINOPHEN W/CODEINE #3 1 TAB PO ONE (15:56)
[2022-01-04] MEDS ORDERED: Heparin IV Adult Wt-Based Standard *NO* Bolus Protocol IV ONE (16:15)
[2022-01-04 16:22] LABS: Basophils # (auto) 0.17 K/uL (0-0.2); Eosinophils # (auto) 0.68 K/uL (0-0.5); Eosinophils % (auto) 4.1 %; Hemoglobin 18.3 g/dL (14.0-18.0); Immature Granulocytes # (auto) 0.28 K/uL (0.00-0.02); Immature Granulocytes % (auto) 1.7 %; Lymphocytes # (auto) 3.29 K/uL (1.2-3.4); Lymphocytes % (auto) 19.6 %; Mean Corpuscular Hemoglobin 32.6 pg (25-34); Mean Corpuscular Hgb Conc 33.9 g/dL (32-36); Mean Corpuscular Volume 96.3 fL (80-100); Mean Platelet Volume 9.6 fL (7.4-10.4); Monocytes % (auto) 8.9 %; Neutrophils # (auto) 10.84 K/uL (1.4-6.5); Neutrophils % (auto) 64.7 %; Platelet Count 299 K/uL (130-400); RDW Coefficient of Variation 13.7 % (11.5-14.5); RDW Standard Deviation 47.9 fL (36.4-46.3); Red Blood Count 5.61 M/uL (4.7-6.1); White Blood Count 16.76 K/uL (4.8-10.8)
--- NOTE | 2022-01-04 16:24 | History & Physical Report ---
Date of Service January 04, 2022 Assessment & Plan (1) Ischemia of left lower extremity: Plan: Pt with sx of rest pain and toe discoloration consistent with severe PAD. Has now had sx for 5 days. Pt also seen by Dr Isabel today. Recommends pt undergo admission for pain control and administration of heparin drip. Imaging demonstrates likely inflow disease as well as more distal disease. Planning on aortogram with runoff and possible intervention in OR tomorrow. Procedure discussed with pt, he is agreeable. Also discussed with his in waiting room. History of Present Illness Chief Complaint: LLE pain Primary Care Provider: Osmar Cabral MD 61 yo m with hx of RA, HTN, GERD, hypercholesterolemia, lumbar disc disease, lungs nodule, seen today in consultation for LLE ischemic pain he has had for past 5 days. Pt states he has had some chronic numbness in LLE for past 1 year. Has had BLE cramping unrelated to ambulation, and attributed this to his cholesterol medications. Pt is a prior smoker, having quit about 20 yr ago. States he noted severe pain in L toes last week, which was worse at night when lying in bed. States he had some relief with hanging his foot over the bed and getting up to walk. Noted purplish discoloration of his L toes around that time as well. Denies palpitations, hx of blood clots, MOY, fever, chest pain, SOB, abd pain, N/V, ulcerations, other complaints. Arterial US of LLE demonstrates multiple areas of stenosis and likely significant inflow disease as well. Pt seen in US room with Dr Isabel present while pt undergoing his US. Allergies Allergy/AdvReac Type Severity Reaction Status Date / Time Penicillins Allergy Mild rash (see Verified 01/04/22 15:48 comments) rosuvastatin AdvReac Mild MUSCLE Verified 01/04/22 16:12 ACHES Home Medications Medication Instructions Recorded Confirmed Type amlodipine 5 mg-benazepril 20 mg 1 cap PO QPM 10/21/18 01/04/22 History capsule amlodipine 5 mg-benazepril 20 mg 2 cap PO QAM 10/21/18 01/04/22 History capsule atenolol 100 mg tablet 100 mg PO HS 10/21/18 01/04/22 History aagzwvgwulo-osqfwyxlw-ygg C-Mn 1,500 mg PO BID 10/21/18 01/04/22 History capsule hydralazine 10 mg tablet 10 mg PO BID 10/21/18 01/04/22 History prednisone 5 mg tablet 10 mg PO QAM 10/21/18 01/04/22 History magnesium oxide 400 mg (241.3 mg 400 mg PO QAM #30 tab 09/01/19 01/04/22 Rx magnesium) tablet famotidine 40 mg tablet 40 mg PO BID 08/14/20 01/04/22 History pantoprazole 40 mg tablet,delayed 40 mg PO QPM 08/14/20 01/04/22 History release multivitamin 1 tab PO QAM 08/17/21 01/04/22 History folic acid 1 mg tablet 1 mg PO DAILY 12/18/21 01/04/22 History methotrexate sodium 2.5 mg tablet 10 mg PO WE 12/18/21 01/04/22 History Past Med/Surg History Medical History (Updated 01/04/22 @ 16:20 by Rocío Matt PA-C) Abnormal liver enzymes Chronic, mild, under surveillance with routine labs to monitor - LFTs 07/2021 within normal range Acid reflux controlled CKD (chronic kidney disease) baseline creatinine 1.4-1.5 per chart review-PCP monitoring High cholesterol not on medication currently, h/o statin associated myalgias History of herniated intervertebral disc lumbar, s/p fusion HTN (hypertension) controlled, stable per pt Ischemia of left lower extremity Lung nodule under surveillance, stable x 10 years Rheumatoid arthritis chronic prednisone (current dose 10mg daily), follows with rheumatology Sleep apnea possible per records-on CPAP during PNA hospitalization in past per pt, denies formal sleep apnea testing Surgical History History of arthroscopy of right knee History of left cataract surgery History of lumbar fusion History of right cataract surgery Family History Other No family history of adverse response to anesthesia No pertinent family history Social History Smoking Status: Former smoker Age Quit Using Tobacco: 40; Second Hand Exposure: No; Hx Alcohol Use: Yes Alcohol type: beer and hard liquor Hx Substance Use: No Preferred Language: Estonian Communication Ability: Effective Sheriff Required: No Beliefs That Will Affect Care: None Current Living Situation: Spouse current occupational status: employed 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[employer] Feels Safe at Home: Yes Assistive Devices: Glasses Review of Systems All systems reviewed & are unremarkable except as noted in HPI & below Physical Exam Constitutional: WD/WN, vitals as above + obese, healthy appearing, cooperative and comfortable; not in distress ENMT: Ears: no hearing impairment Neck: trachea midline Respiratory: normal respiratory effort, lungs clear to auscultation Auscultation: + diminished lung sounds Cardiovascular: Rate/Rhythm: regular rate and regular rhythm Vessels: femoral pulses present, posterior tibial pulses present (RLE +1, LLE nonpalpable), dorsalis pedis pulses present (+1 RLE, nonpalpable LLE), brachial pulses present and radial pulses present; + abnormal peripheral pulses Extremities: + abnormal capillary refill (RLE normal, LLE significantly delayed L toes cool) and no edema Gastrointestinal (Abdomen): Inspection/Auscultation: abdomen normal to inspection and normal bowel sounds Percussion/Palpation: abdomen soft; abdomen nontender Musculoskeletal: Extremities: + cyanosis (L toes purple) Skin: no rashes, warm and dry Neurologic: moves all extremities and awake; no focal motor deficits and not confused Psychiatric: A+Ox3, euthymic affect Results & Data ([facility]) Vital Signs (Past 12 Hours) Vital Signs Temp Pulse Resp BP Pulse Ox 01/04/22 13:56 36.8 C 64 20 134/88 94 Code Status & VTE Plan VTE Prophylaxis Plan VTE Prophylaxis will be ordered: No Reason for no VTE drug order: Treatment not indicated (Pt will be on heparin drip.)
[2022-01-04 16:36] LABS: Partial Thromboplastin Ratio 0.9; Partial Thromboplastin Time 24.8 Seconds (21.0-31.0); Prothrombin Time 10.6 Seconds (9.0-12.0)
[2022-01-04 16:43] LABS: BUN Creatinine Ratio 16.7 (10-20); Calcium 9.6 mg/dl (8.5-10.1); Creatinine Clr Calc Pharmacy 75.4 ml/min; Est GFR (African American) 60.3 ml/min
--- NOTE | 2022-01-04 16:43 | XRay Report ---
XR chest 2V PA/lateral HISTORY: Preop. COMPARISON: Chest 11/2521. Chest CT 12/17/2021. FINDINGS: No pneumothorax. No pleural effusion is. The cardiac silhouette is mildly enlarged. There i s diffuse interstitial thickening and a 16 mm left upper lobe pulmonary nodule. This remains unchange d. No new focal lung consolidations. No evidence for pulmonary edema. There are low lung volumes. IMPRESSION: 1. Cardiomegaly and chronic interstitial thickening, unchanged. 2. Stable 16 mm left upper lobe pulmonary nodule. ACT 112: Negative or not required by law. Electronically signed by: Damon Alvarado M.D. 01/04/2022 4:42 PM
--- NOTE | 2022-01-04 16:45 | Ultrasound Report ---
ULTRASOUND LEFT LOWER EXTREMITY ARTERIAL; ANKLE-BRACHIAL INDICES CLINICAL HISTORY: Left foot pain and discoloration. COMPARISON STUDY: No priors. TECHNIQUE: Real-time grayscale and color Doppler sonography of the arteries of the left lower extremi ty is performed from the inguinal crease to the foot. Ankle-brachial indices were assessed. FINDINGS: Ankle brachial indices: Right brachial pressure measures 131 and left brachial pressure measures 134. Pressures in the right posterior tibial artery measure 116 for an JOHNNIE of 0.9, pressures in the right dorsalis pedis measure 126 for an JOHNNIE of 0.9. Pressures in the left posterior tibial artery measure 118 for an JOHNNIE of 0.9, and pressures in the left dorsalis pedis measure 118 for an JOHNNIE of 0.9. Left lower extremity: Atherosclerotic plaque and irregularity seen throughout the arteries of the lef t lower extremity. There are triphasic waveforms in the common femoral artery with velocities measuri ng up to 80 cm/s. The profunda femoris artery is patent with velocities measuring up to 30 cm/s. Ther e is blunted arterial upstroke seen in the superficial femoral and popliteal arteries, with monophasi c to biphasic arterial waveforms. Velocities in the superficial femoral artery measure up to 84 cm/s, and velocities in the popliteal artery measure up to 55 cm/s. There is three-vessel runoff to the fo ot. There is blunted arterial upstroke in the calf vessels with monophasic to biphasic waveforms. Andi ocities in the calf arteries measure up to 61 cm/s. The dorsalis pedis artery is patent with velociti es measuring up to 25 cm/s. IMPRESSION: 1. Findings of peripheral vascular disease as above with no sonographic evidence of focal high-grade stenosis or vessel occlusion throughout the arteries of the left lower extremity. 2. Ankle-brachial indices as above. Dictated: 01/04/2022 4:20 PM Transcribed: 01/04/2022 4:38 PM Rehana [id number] [email or web address] Electronically signed by: Cesar Shepard M.D. 01/04/2022 4:44 PM
[2022-01-04] MEDS: HEPARIN SODIUM/DEXTROSE 25,000 UNITS/500 ML BAG IV SCH (18:21)
[2022-01-04] MEDS ORDERED: GLUCOSAMINE CHONDROIT VIT C MN PO SCH (21:00)
[2022-01-04] MEDS: FAMOTIDINE 40 MG TABLET PO SCH (21:11)
[2022-01-04] MEDS: hydrALAZINE 10 MG TAB PO SCH (21:11)
[2022-01-04] MEDS: ATENOLOL 50 MG TABLET PO SCH (21:11)
[2022-01-04] MEDS: PANTOprazole 40 MG TAB PO SCH (21:12)
[2022-01-04] MEDS: SODIUM CHLORIDE 0.9% 1000ML 1,000 ML IV SCH (21:16)
[2022-01-04] MEDS: ENALAPRIL MALEATE 10 MG TAB PO SCH (21:34)
[2022-01-04] MEDS: amLODIPine BESYLATE 5 MG TAB PO SCH (21:34)
[2022-01-04] MEDS: ACETAMINOPHEN W/CODEINE #3 1 TAB PO PRN (22:48)
[2022-01-05 01:02] LABS: Partial Thromboplastin Ratio 1.5; Partial Thromboplastin Time 40.2 Seconds (21.0-31.0)
[2022-01-05] MEDS: ACETAMINOPHEN W/CODEINE #3 1 TAB PO PRN ×3 (02:42→20:26)
[2022-01-05] MEDS: SODIUM CHLORIDE 0.9% 1000ML 1,000 ML IV SCH ×2 (05:08→17:32)
[2022-01-05 06:38] LABS: Partial Thromboplastin Ratio 1.8
[2022-01-05 07:04] LABS: Partial Thromboplastin Time 48.4 Seconds (21.0-31.0)
[2022-01-05] MEDS: HEPARIN SODIUM/DEXTROSE 25,000 UNITS/500 ML BAG IV SCH (08:02)
[2022-01-05] MEDS: MAGNESIUM OXIDE 400 MG TAB PO SCH (08:08)
[2022-01-05] MEDS: MULTIVITAMIN TAB PO SCH (08:08)
[2022-01-05] MEDS: FAMOTIDINE 40 MG TABLET PO SCH ×2 (08:08→20:27)
[2022-01-05] MEDS: FOLIC ACID 1 MG TAB PO SCH (08:08)
[2022-01-05] MEDS: predniSONE 10 MG TABLET PO SCH (08:09)
[2022-01-05] MEDS: hydrALAZINE 10 MG TAB PO SCH ×2 (08:09→20:28)
[2022-01-05 08:45] LABS: Partial Thromboplastin Ratio 1.8
[2022-01-05 08:54] LABS: Partial Thromboplastin Time 49.5 Seconds (21.0-31.0)
[2022-01-05] MEDS ORDERED: CLINDAMYCIN 600 MG/54 ML BAG IV SCH (12:00)
[2022-01-05] MEDS ORDERED: HYDROCORTISONE SOD SUCCINATE 100 MG/2 ML VIAL IV SCH (12:00)
--- NOTE | 2022-01-05 14:08 | History & Physical Bridge Note ---
Date of Service January 05, 2022 History & Physical Bridge Note Patient for an aortogram with runoff and possible intervention. I have discussed the risks options and benefits of the procedure with the patient. The patient understands the risks options and benefits and agrees to the procedure. I have examined the patient, reviewed the History & Physical and in the interval since the performance of the History & Physical I have noted the following changes of clinical significance: no changes noted
[2022-01-05] MEDS ORDERED: MIDAZOLAM HCL 1 MG/ML 2ML VIAL ONE (14:12)
[2022-01-05] MEDS ORDERED: fentaNYL citrate 100 MCG/2 ML VIAL ONE (14:12)
[2022-01-05] MEDS ORDERED: HEPARIN SOD (PORCINE) 1000 UNIT/ML ONE (14:13)
--- NOTE | 2022-01-05 14:13 | Pre Anesthesia Assessment ---
Date of Service January 05, 2022 Pre Sedation Assessment Vital Signs Temp Pulse Pulse Pulse Pulse Resp BP 01/05/22 13:12 36.8 C 55 L 20 01/05/22 07:10 36.6 C 54 L 18 01/04/22 22:54 36.3 C L 58 L 18 01/04/22 18:10 36.7 C 63 16 01/04/22 18:05 36.7 C 63 16 01/04/22 18:03 68 18 148/96 H 01/04/22 17:00 69 18 BP BP Pulse Ox 01/05/22 13:12 170/91 H 96 01/05/22 07:10 151/87 H 93 01/04/22 22:54 146/88 H 91 01/04/22 18:10 148/90 H 96 01/04/22 18:05 148/90 H 96 01/04/22 18:03 01/04/22 17:00 145/86 H 96 Cardiovascular RRR, no murmur, no edema Respiratory normal respiratory effort, lungs clear to auscultation Pre-Sedation Airway Assessment Smoking Status: Former smoker Hx Sleep Apnea: No Short, Thick Neck: No Thyromental Distance: > or= 3.5 Finger Breadths Oral Cavity: + WNL Mallampati Class: III ASA: ASA3 NPO Status Date of Last Intake of Fluids: 01/05/22 Time of Last Intake of Fluids: 09:00 Last Oral Intake of Fluids Comment: sip with pills Date of Last Intake of Solid Food: 01/04/22 Time of Last Intake of Solid Foods: 18:00 Procedure Planning Contraindications for Sedation: none Current Medications Reviewed: Yes Notes The planned sedation has been discussed with the patient. Informed Consent was obtained. I have identified the patient, determined the appropriateness of sedation and have assessed the patient immediately prior to the procedure. All medicine(s) and interventions are by my order.
[2022-01-05] MEDS: fentaNYL citrate 100 MCG/2 ML VIAL ONE ×2 (15:53→16:46)
[2022-01-05] MEDS ORDERED: CLOPIDOGREL BISULFATE 300 MG TAB PO STA (15:54)
--- NOTE | 2022-01-05 15:57 | Post Operative Brief Note ---
Immediate Post Op Note v1 Date of Surgery January 05, 2022 Pre & Post Diagnosis Operation Date: 01/05/22 13:00 Pre-Op Diagnosis: Ischemia of left lower extremity I identified the patient and participated in the time-out.: Yes Procedure Operation Date: 01/05/22 13:00 Actual Procedures p Aortogram, Ultrasound Localization of Femoral Arteries, Bilateral Iliac Artery Stenting, Moderate Sedation [id number](Bilateral) - Eliazar Isabel MD Surgeon Eliazar Isabel MD Industrial Recruiter MD Cristi Estimated Blood Loss 40 Findings Consistent with Post-Op Diagnosis Anesthesia Type RN Sedation Complications none Disposition Accompanied Patient To Recovery: Yes Disposition: Recovery Room
[2022-01-05] MEDS ORDERED: VISIPAQUE IV PRN (16:05)
[2022-01-05] MEDS ORDERED: LIDOCAINE 1% LOCAL 20 ML VIAL INJ ONE (16:05)
--- NOTE | 2022-01-05 16:30 | Procedure Note ---
Angiogram Post Procedure Fluoroscopy Time (minutes): 2.3 Radiation (mGy): 604.7 Contrast: 155cc Post Operative Report Pre & Post Diagnosis Operation Date: 01/05/22 13:00 Pre-Op Diagnosis: Embolization of Left Foot with Rest Pain Post-Op Diagnosis: Embolization of Left Foot with Rest Pain I identified the patient and participated in the time-out.: Yes Procedure Operation Date: 01/05/22 13:00 Actual Procedures p Aortogram, Left Lower Extremity Angiogram, Ultrasound Localization of Femoral Arteries, Bilateral Common Iliac Artery Stenting, Moderate Sedation 1454- (Bilateral) - Eliazar Isabel MD Surgeon Eliazar Isabel MD Program Control Analyst MD rCisti Estimated Blood Loss 40 Findings Consistent with Post-Op Diagnosis Specimens none Anesthesia Type RN Sedation Disposition Accompanied Patient To Recovery: No Disposition: Recovery Room Indications This is a 61 year old male with history of peripheral arterial disease who presented with several days of discoloration and pain of the toes of his left foot. He presents for aortoiliac and left lower extremity angiography with possible intervention. Description of Procedure The patient was taken to the angio suite and placed on the angio table in the supine position. The patient's identity, surgical procedure, and procedure site were verified. The bilateral groins were prepped and draped in the usual sterile fashion. A team timeout was performed. Lidocaine was injected in the subcutaneous tissues at the intended puncture site. Using ultrasound guidance the right common femoral artery was accessed percutaneously with 19G needle. The common femoral artery bifurcation was located high so there was only a short segment available for access before the artery dove deeper and became the iliac artery. There was some posterior wall calcification but the anterior wall was free of calcification. An angled glidewire was passed into the aorta. The needle was removed and a 5F sheath was placed. A pigtail catheter was advanced over the wire into the aorta about L1-L2 level. Using power injection aortoiliac angiogra phy was performed. This demonstrated patent bilateral renal arteries without significant stenosis and an infrarenal aorta which was patent and without focal atherosclerotic plaque that would likely account for embolic events down the left leg. The bilateral common iliac arteries had diffuse atherosclerotic calcifications with flow-limiting stenosis in several areas. The bilateral hypogastric and external iliac arteries did display atherosclerotic plaque but they were patent and there were no flow-limiting stenoses. Next we accessed the left common femoral artery. Lidocaine was injected in the subcutaneous tissues at the intended puncture site. Using ultrasound guidance the left common femoral artery was accessed percutaneously with 19G needle. The common femoral artery bifurcation on this side was also located high so there was only a short segment available for access before the artery dove deeper and became the iliac artery. There was some posterior wall calcification but the anterior wall was free of calcification. A stiff angled glidewire was passed into the aorta. The needle was removed and a 5F sheath was placed. A skin mitul was made around the sheath at both access sites. The floppy angled glide wire on the right was removed and replaced with a stiff angled glide wire. The right 5F sheath was exchanged for a short 8F sheath. The left 5F sheath was exchanged for a short 8F sheath. Bilateral VBX stents ([id number]) were deployed in a kissing fashion in the common iliac arteries. Post-deployment angiography displayed excellent result with no further flow limiting stenosis in the common iliac arteries. Angiography was then performed down the left leg. The common femoral artery, superficial femoral artery, profunda femoris artery, popliteal artery, tibioperoneal trunk, anterior tibial artery, and peroneal arteries were all patent and without flow limiting stenoses. The posterior tibial artery was occluded. The anterior tibial artery and peroneal artery were patent through their length. At this time we checked the distal signal and patient now had a good anterior tibal signal on the left. We did attempt to deploy Starclose for our access closures, however the device did not catch the arteriotomy so it was removed and manual pressure was held on both sides. Hemostasis was obtained. The patient tolerated the procedure well and without immediate complication. He was taken to the recovery room in satisfactory condition. Dr. Isabel was present and scrubbed for the entirety of the procedure. I attest to the content of the Intraoperative Record and any orders documented therein. Any exceptions are noted below.
[2022-01-05] MEDS: ATENOLOL 50 MG TABLET PO SCH (20:27)
[2022-01-05] MEDS: amLODIPine BESYLATE 5 MG TAB PO SCH (20:28)
[2022-01-05] MEDS: PANTOprazole 40 MG TAB PO SCH (20:28)
[2022-01-05] MEDS: ENALAPRIL MALEATE 10 MG TAB PO SCH (20:28)
--- NOTE | 2022-01-05 21:29 | Electrocardiogram Report ---
Test Reason : Blood Pressure : / mmHG Vent. Rate : 055 BPM Atrial Rate : 055 BPM P-R Int : 174 ms QRS Dur : 094 ms QT Int : 434 ms P-R-T Axes : 021 -13 006 degrees QTc Int : 415 ms Poor data quality, interpretation may be adversely affected Sinus bradycardia Otherwise normal ECG When compared with ECG of 18-DEC-2021 00:18, No significant change was found Confirmed by Demetrius Tamayo ([id number]) on 01/05/2022 9:29:17 PM Referred By: Osmar Cabral Confirmed By:Demetrius Tamayo
[2022-01-06] MEDS: ACETAMINOPHEN W/CODEINE #3 1 TAB PO PRN ×2 (04:57→09:21)
[2022-01-06 05:50] LABS: Hemoglobin 15.6 g/dL (14.0-18.0); Mean Corpuscular Hemoglobin 32.4 pg (25-34); Mean Corpuscular Hgb Conc 34.7 g/dL (32-36); Mean Corpuscular Volume 93.6 fL (80-100); Mean Platelet Volume 9.6 fL (7.4-10.4); Platelet Count 261 K/uL (130-400); RDW Coefficient of Variation 13.5 % (11.5-14.5); RDW Standard Deviation 46.3 fL (36.4-46.3); Red Blood Count 4.81 M/uL (4.7-6.1)
[2022-01-06 05:53] LABS: Partial Thromboplastin Ratio 0.9; Partial Thromboplastin Time 25.2 Seconds (21.0-31.0)
[2022-01-06 06:54] LABS: ALC (manual) 4.22 K/uL (1.2-3.4); Basophils # (manual) 0.13 K/uL (0-0.2); Basophils % (manual) 0.9 %; Eosinophils # (manual) 0.13 K/uL (0-0.5); Eosinophils % (manual) 0.9 %; Lymphocytes # (manual) 4.22 K/uL (1.2-3.4); Lymphocytes % (manual) 28.3 %; Monocytes # (manual) 1.58 K/uL (0.11-0.59); Monocytes % (manual) 10.6 %; Myelocytes # (manual) 0.13 K/uL (0-0); Myelocytes % (manual) 0.9 %; Neutrophils % (manual) 58.4 %
[2022-01-06] MEDS: MULTIVITAMIN TAB PO SCH (08:06)
[2022-01-06] MEDS: FAMOTIDINE 40 MG TABLET PO SCH (08:06)
[2022-01-06] MEDS: hydrALAZINE 10 MG TAB PO SCH (08:06)
[2022-01-06] MEDS: predniSONE 10 MG TABLET PO SCH (08:06)
[2022-01-06] MEDS: MAGNESIUM OXIDE 400 MG TAB PO SCH (08:06)
[2022-01-06] MEDS: FOLIC ACID 1 MG TAB PO SCH (08:06)
[2022-01-06] MEDS ORDERED: CLOPIDOGREL BISULFATE 75 MG TAB PO SCH (09:00)
[2022-01-06] MEDS ORDERED: oxyCODONE/ACETAMINOPHEN 5mg/325mg TAB PO PRN (09:30)
--- NOTE | 2022-01-06 13:33 | Surgery Progress Note ---
Date of Service January 06, 2022 Assessment & Plan (1) Severe peripheral arterial disease: Plan: This gentleman is postoperative day 1 from stenting of his bilateral iliac arteries. He is doing well. He has good flow to his left foot.He continues to have discomfort from embolization to the digital arteries of the toes of the left foot. Who be discharged today with Oral analgesics and Plavix. We will see him in the office in 2 weeks for follow-up. Admission and Anticipated Discharge Date Admission Date: January 04, 2022 Subjective Patient has no complaints of any groin pain. He is complaining of pain in his toes of his left foot which is controlled with the oral analgesics. Physical Exam Physical Exam: On exam his groins are dry. There is no evidence of hematoma. He has good palpable dorsalis pedis pulse in the left foot.His toes continue to be cyanotic. Results & Data ([facility]) Vital Signs (Past 12 Hours) Vital Signs Temp Pulse Resp BP BP Pulse Ox 01/06/22 08:12 36.4 C L 56 L 14 130/70 94 01/06/22 02:42 36.4 C L 55 L 18 128/75 91
[2022-01-10] MEDS ORDERED: metHOTREXate sodium 2.5 MG TAB PO SCH (09:00)
--- NOTE | 2022-01-24 08:32 | Discharge Summary ---
Date of Service January 24, 2022 Admission HPI Per Admitting Provider 61 yo m with hx of RA, HTN, GERD, hypercholesterolemia, lumbar disc disease, lungs nodule, seen today in consultation for LLE ischemic pain he has had for past 5 days. Pt states he has had some chronic numbness in LLE for past 1 year. Has had BLE cramping unrelated to ambulation, and attributed this to his cholesterol medications. Pt is a prior smoker, having quit about 20 yr ago. States he noted severe pain in L toes last week, which was worse at night when lying in bed. States he had some relief with hanging his foot over the bed and getting up to walk. Noted purplish discoloration of his L toes around that time as well. Denies palpitations, hx of blood clots, MOY, fever, chest pain, SOB, abd pain, N/V, ulcerations, other complaints. Arterial US of LLE demonstrates multiple areas of stenosis and likely significant inflow disease as well. Pt seen in US room with Dr Isabel present while pt undergoing his US. Admission Exam Per Admitting Provider Constitutional: WD/WN, vitals as above + obese, healthy appearing, cooperative and comfortable; not in distress ENMT: Ears: no hearing impairment Neck: trachea midline Respiratory: normal respiratory effort, lungs clear to auscultation Auscult ation: + diminished lung sounds Cardiovascular: Rate/Rhythm: regular rate and regular rhythm Vessels: femoral pulses present, posterior tibial pulses present (RLE +1, LLE nonpalpable), dorsalis pedis pulses present (+1 RLE, nonpalpable LLE), brachial pulses present and radial pulses present; + abnormal peripheral pulses Extremities: + abnormal capillary refill (RLE normal, LLE significantly delayed L toes cool) and no edema Gastrointestinal (Abdomen): Inspection/Auscultation: abdomen normal to inspection and normal bowel sounds Percussion/Palpation: abdomen soft; abdomen nontender Musculoskeletal: Extremities: + cyanosis (L toes purple) Skin: no rashes, warm and dry Neurologic: moves all extremities and awake; no focal motor deficits and not confused Psychiatric: A+Ox3, euthymic affect Principal Diagnosis 1. s/p aortogram with BL common iliac stenting 2. LLE ischemia and toe embolization Discharge Exam On exam his groins are dry. There is no evidence of hematoma. He has good palpable dorsalis pedis pulse in the left foot.His toes continue to be cyanotic. Discharge Data Allergies Allergy/AdvReac Type Severity Reaction Status Date / Time Penicillins Allergy Mild rash (see Verified 01/17/22 11:17 comments) rosuvastatin AdvReac Mild MUSCLE Verified 01/17/22 11:17 ACHES Consultations 01/04/22 15:35 ED Decision to Admit Stat Procedures Performed Operation Date: 01/05/22 13:00 Actual Procedures p Aortogram, Left Lower Extremity Angiogram, Ultrasound Localization of Femoral Arteries, Bilateral Common Iliac Artery Stenting, Moderate Sedation [id number] 1620(Bilateral) - Eliazar Isabel MD Ordered Studies 01/04/22 14:04 US arterial duplex LE LT Stat 01/05/22 07:38 EV Angio Abdomen Aorta Routine US EV guide vascular access Routine Hospital Course (1) Severe peripheral arterial disease: This gentleman is postoperative day 1 from stenting of his bilateral iliac arteries. He is doing well. He has good flow to his left foot.He continues to have discomfort from embolization to the digital arteries of the toes of the left foot. Who be discharged today with Oral analgesics and Plavix. We will see him in the office in 2 weeks for follow-up. Total Time Total Time Spent Total Time Spent (In Minutes): 0 Discharge Plan Discharge Items Patient Disposition: Home - Self-Care Reason For Visit: LLE PAD WITH REST PAIN Discharge Diagnosis: Bilateral iliac artery stenosis with embolization to left foot Activity: Per Instructions section Non-emergency contact: Surgeon Call non-emergency contact if: your temperature is above 101.5, your wound has increased redness, your wound has increased drainage and your wound pain has increased Follow-up/Referrals: Osmar Cabral MD [Primary Care Provider] - Eliazar Isabel MD [Physician] - 01/20/22 1:45 pm (Appt with Rocío Matt PA-C) Diet: Heart Healthy Addtl Attending Provider Instructions: SPECIAL CARE INSTRUCTIONS: Medications: * Continue to take your medications as directed. If you have been given a prescription for Plavix, please fill it immediately and take as directed. Incision Care: * Your puncture site may have some bruising and minor swelling for about one week. * You will have a small dressing covering your puncture site. You may remove the dressing after 24 hours and shower. You may let the warm soapy water run over it, but be sure to dry the puncture site well and keep it dry. * DO NOT IMMERSE THE INCISION IN A TUB/POOL/etc. UNTIL HEALED. * Puncture sites should be kept covered with a band-aid until it begins to heal. Restrictions: * Depending on whether you leg or arm was punctured to access the arteries, you will be required to lay flat, hold your arm still, or both, for about 4 hours after the procedure to prevent bleeding. * Limit your activity for the first 48 hours. You may walk and go up and down steps. Avoid excessive bending or movement at the puncture site. Possible Complications: * Excessive Swelling - after blood flow is improved you may notice increased swelling in the lower legs. This is a normal response. This usually depends on the amount of blockages in the leg, how long they have been there prior to your procedure and how much blood flow was restored. Elevating your legs will help to improve this. Please notify our office ([phone]) if the swelling does not go away after lying in bed overnight. * Infection/Drainage/Bleeding - Drainage or bleeding from the puncture site should be minimal. If you have excessive bleeding or drainage, call our office ([phone]) right away. * Pain - You may experience some mild pain or soreness at your puncture site. If your pain does not improve, please contact our office ([phone]). Call your doctor and seek emergent treatment if you develop: * Temperature above 101 degrees * Any fever or chills * Any redness or purulent drainage from the puncture site * Any new dusky/blue colored toes or feet with coolness or sharp or aching pain. SKIN IRRITATION: * You may experience some redness and/or swelling in the area where radiation was administered. If any skin irritation occurs, please contact your family physician. FOLLOW UP VISIT: Keep any scheduled doctor appointments. Call [phone] to schedule a follow up appointment if one not already scheduled. Pending Studies at Discharge: No Stand-Alone Forms: [employer], Smoking Cessation Medications and DC Order Prescriptions: New oxycodone-acetaminophen [Percocet] 5-325 mg tablet 1 tab PO Q4H PRN (Reason: pain) Qty: 30 RF: 0 Continued prednisone 5 mg tablet 10 mg PO QAM RF: 0 hydralazine 10 mg tablet 10 mg PO BID RF: 0 atenolol 100 mg Tablet 100 mg PO HS RF: 0 [id number]-ihi C-Mn Capsule 1,500 mg PO BID RF: 0 amlodipine-benazepril 5-20 mg capsule 2 cap PO QAM RF: 0 amlodipine-benazepril 5-20 mg capsule 1 cap PO QPM RF: 0 magnesium oxide 400 mg (241.3 mg magnesium) Tablet 400 mg PO QAM Qty: 30 RF: 0 famotidine 40 mg Tablet 40 mg PO BID RF: 0 pantoprazole 40 mg Tablet,Delayed Release (Dr/Ec) 80 mg PO QPM RF: 0 multivitamin Tablet 1 tab PO QAM RF: 0 methotrexate sodium 2.5 mg tablet 10 mg PO WK RF: 0 folic acid 1 mg tablet 1 mg PO QAM RF: 0 No Action clopidogrel [Plavix] 75 mg tablet 75 mg PO HS RF: 0 Discharge Orders: Discharge Order (Routine); Ordered 01/06/22 Ordered By: Eliazar Isabel Admission Data Admit Date/Time: 01/04/22 15:51 Attending Provider: Eliazar Isabel Admit Provider: Eliazar Isabel Primary Care Provider: Osmar Cabral Other Providers: Eliazar Isabel Other Interventions: Discharge Summary Assessment (RN) Last Done: 01/06/22 15:19
== END 2022-01-06 17:00 | disposition home or self-care (01) | DRG 254 ==
LOC: ED 13:25 → 3N 15:51
DX: Z68.39 Body mass index [BMI] 39.0-39.9, adult; E66.9 Obesity, unspecified; Z87.891 Personal history of nicotine dependence; Z98.1 Arthrodesis status; M06.9 Rheumatoid arthritis, unspecified; I12.9 Hypertensive chronic kidney disease with stage 1 through stage 4 chronic kidney disease, or unspecified chronic kidney disease; Z88.8 Allergy status to other drugs, medicaments and biological substances; Z88.0 Allergy status to penicillin; E78.00 Pure hypercholesterolemia, unspecified; K21.9 Gastro-esophageal reflux disease without esophagitis; R91.1 Solitary pulmonary nodule; N18.9 Chronic kidney disease, unspecified; I70.223 Atherosclerosis of native arteries of extremities with rest pain, bilateral legs

== ENCOUNTER 2022-11-18 08:41 | Observation (INO) ==
--- NOTE | 2022-11-18 08:12 | History & Physical Report ---
Date of Service November 18, 2022 Assessment & Plan (1) Bilateral iliac artery stenosis: Plan: Patient is admitted for arteriography and possible intervention of the bilateral iliac arteries. I have discussed the risks options and benefits of the procedure with the p atient. The patient understands the risks options and benefits and agrees to the procedure. History of Present Illness Chief Complaint: Restenosis of iliac stents Primary Care Provider: Osmar Cabral MD Mr. Nguyen is a middle-aged male presents to Dr. Pascal's vascular surgery clinic today for a 6-month follow-up visit regarding his history of aortoiliac occlusive disease and bilateral common iliac artery stenting about 8 months ago. Patient states that he has noticed discomfort in his right thigh when ambulating that is relieved after he rests. He describes this sensation as a tingling pain and fatigue in the muscle. He states that he underwent neck surgery on August 24, and that the right thigh symptoms did not seem to be occurring until just a few days ago. He does admit that he has not been very active. Even prior to the neck surgery, he has only been walking short distances and not at a very fast pace due to chronic knee pain and instability. He denies claudication Symptoms in his left leg. He denies rest pain, di scoloration of the toes, or other concerns. His aortoiliac ultrasound performed prior to today's appointment demonstrates occlusion of his right iliac stent and severe stenosis in his left iliac stent. Allergies Allergy/AdvReac Type Severity Reaction Status Date / Time Penicillins Allergy Mild rash (see Verified 10/27/22 10:39 comments) rosuvastatin AdvReac Mild MUSCLE Verified 10/27/22 10:39 ACHES Home Medications Medication Instructions Recorded Confirmed Type amlodipine 5 mg-benazepril 20 mg 1 cap PO QPM 10/21/18 10/27/22 History capsule amlodipine 5 mg-benazepril 20 mg 2 cap PO QAM 10/21/18 10/27/22 History capsule atenolol 100 mg tablet 100 mg PO HS 10/21/18 10/27/22 History [id number]-ojjcldijr-vgy C-Mn 1,500 mg PO BID 10/21/18 10/27/22 History capsule hydralazine 10 mg tablet 10 mg PO BID 10/21/18 10/27/22 History prednisone 5 mg tablet 10 mg PO QAM 10/21/18 10/27/22 History magnesium oxide 400 mg (241.3 mg 400 mg PO QAM #30 tabs 09/01/19 10/27/22 Rx magnesium) tablet famotidine 40 mg tablet 40 mg PO BID 08/14/20 10/27/22 History pantoprazole 40 mg tablet,delayed 80 mg PO QPM 08/14/20 10/27/22 History release multivitamin 1 tab PO QAM 08/17/21 10/27/22 History folic acid 1 mg tablet 1 mg PO QAM 12/18/21 10/27/22 History methotrexate sodium 2.5 mg tablet 10 mg PO WK 12/18/21 10/27/22 History oxycodone-acetaminophen 5 mg-325 1 tab PO Q4H PRN pain #30 tabs 01/06/22 10/27/22 Rx mg tablet (Percocet) clopidogrel 75 mg tablet (Plavix) 75 mg PO HS 01/17/22 10/27/22 History nystatin 100,000 unit/gram topical 1 applic topical BID #30 grams 10/27/22 Rx powder Past Med/Surg History Medical History Abnormal liver enzymes Chronic, mild, under surveillance with routine labs to monitor - LFTs 07/2021 within normal range Acid reflux controlled CKD (chronic kidney disease) baseline creatinine 1.4-1.5 per chart review-PCP monitoring High cholesterol not on medication currently, h/o statin associated myalgias History of herniated intervertebral disc lumbar, s/p fusion HTN (hypertension) controlled, stable per pt Ischemia of left lower extremity s/p bilat iliac artery stents by Dr. Pascal Lung nodule under surveillance, stable x 10 years-NO CHANGES Rheumatoid arthritis chronic prednisone (current dose 10mg daily), follows with rheumatology Sleep apnea possible per records-on CPAP during [facility]NA hospitalization in past per pt, denies formal sleep apnea -testing-NO CHANGE Surgical History History of arthroscopy of right knee History of left cataract surgery History of lumbar fusion History of right cataract surgery History of vascular surgery BILAT COMMON ILIAC STENTS-DR PASCAL [facility]-DISCHARGED JANUARY 06 2022-ON PLAVIX Status post biopsy of kidney Family History Other No family history of adverse response to anesthesia No pertinent family history Social History Smoking Status: Never smoker Age Quit Using Tobacco: 40; Second Hand Exposure: No; Hx Alcohol Use: Yes Alcohol type: beer Hx Substance Use: No Preferred Language: Honduran Communication Ability: Effective Fitting Room Checker Required: No Beliefs That Will Affect Care: None Current Living Situation: Spouse current occupational status: employed 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 He is alert and oriented without any focal deficits. His heart is regular, his lungs are clear. His femoral pulses are nonpalpable on the right, +1 on the left. His lower extremity distal pulses are +1 in the left foot, and nonpalpable on the right. He has a brisk capillary fill to the toes and no sign of distal ischemia at this time. His left third toe tip does have a very small ulcer type lesion on the tip. It is hammered.
[~2022-11-18 08:41] MED LIST changes: -AMLO5CAP2 PO; -ATEN50TA8 PO; +CLINDAMYCIN/D5W 900 MG/50 ML BAG IV SCH; -GLUC15002 PO; -HYDR-4715 PO; +HYDROCORTISONE SOD 100 MG in SYRINGE 0 ML IV SCH; -MAGN400T6 PO; -PANT40TA PO; -PRED-301 PO; -SULF500T8 PO; -[UNRECOGNIZED DRUG - CODE] IV.
[2022-11-18] MEDS: SODIUM CHLORIDE 0.9% 1000ML 1,000 ML IV SCH ×2 (09:00→09:24)
[2022-11-18 09:42] LABS: Creatinine Clr Calc Pharmacy 82.8 ml/min; Est GFR (African American) 67.2 ml/min; Est GFR (Non-African American) 57.9 ml/min
--- NOTE | 2022-11-18 10:20 | History & Physical Bridge Note ---
Date of Service November 18, 2022 History & Physical Bridge Note I have examined the patient, reviewed the History & Physical and in the interval since the performance of the History & Physical I have noted the following changes of clinical significance: no changes noted
[2022-11-18] MEDS ORDERED: fentaNYL citrate 100 MCG/2 ML VIAL ONE ×3 (10:24→11:59)
[2022-11-18] MEDS ORDERED: LIDOCAINE 1% LOCAL 20 ML VIAL ONE (10:24)
[2022-11-18] MEDS ORDERED: MIDAZOLAM HCL 1 MG/ML 2ML VIAL ONE ×3 (10:24→11:59)
[2022-11-18] MEDS ORDERED: HEPARIN SOD (PORCINE) 1000 UNIT/ML ONE (10:25)
--- NOTE | 2022-11-18 10:36 | Pre Anesthesia Assessment ---
Date of Service November 18, 2022 Pre Sedation Assessment Vital Signs Temp Pulse Resp BP Pulse Ox O2 Del Method 11/18/22 09:11 36.6 C 58 L 20 146/92 H 95 Room Air Cardiovascular RRR, no murmur, no edema Respiratory normal respiratory effort, lungs clear to auscultation Pre-Sedation Airway Assessment Smoking Status: Never smoker Hx Sleep Apnea: No Short, Thick Neck: Yes Thyromental Distance: > or= 3.5 Finger Breadths Oral Cavity: + WNL Mallampati Class: III ASA: ASA3 NPO Status Date of Last Intake of Fluids: 11/18/22 Time of Last Intake of Fluids: 07:00 Last Oral Intake of Fluids Comment: sip with meds Date of Last Intake of Solid Food: 11/17/22 Time of Last Intake of Solid Foods: 08:00 Procedure Planning Contraindications for Sedation: none Current Medications Reviewed: Yes Notes The planned sedation has been discussed with the patient. Informed Consent was obtained. I have identified the patient, determined the appropriateness of s edation and have assessed the patient immediately prior to the procedure. All medicine(s) and interventions are by my order.
[2022-11-18] MEDS ORDERED: oxyCODONE/ACETAMINOPHEN 5mg/325mg TAB PO PRN ×2 (12:29→17:30)
--- NOTE | 2022-11-18 12:36 | Operative Report ---
Post Operative Report Pre & Post Diagnosis Operation Date: 11/18/22 10:20 Pre-Op Diagnosis: Restenosis of Iliac Stents Post-Op Diagnosis: Restenosis of Iliac Stents I identified the patient and participated in the time-out.: Yes Procedure Operation Date: 11/18/22 10:20 Actual Procedures p Bilateral Common Iliac Stents, Ultrasound Localization of Bilateral Femoral Arteries, Moderate Sedation [id number](Bilateral) - Eliazar Isabel MD Surgeon Eliazar Isabel MD Special Events Assistant Aki Dupree MD Estimated Blood Loss 20 Findings Consistent with Post-Op Diagnosis There were patent renal arteries bilaterally. On initial aortogram, the right common iliac stent with >90% stenosis throughout. Minimal stenosis on the left. Following deployment of bilateral iliac stents, completion aortogram demonstrate d patent bilateral renal arteries, complete resolution of the right common iliac artery stenosis with patent stent, and patent left common iliac artery stent with no stenosis. Internal iliac artery on the right occluded with distal reconstitution on initial aortogram, same on completion. Left internal iliac artery patent throughout Specimens None Anesthesia Type General Complications None Indications This is a 62 year old male with PMH of PAD and prior bilateral common iliac artery stents who developed severe lifestyle limiting claudication of the right lower extrmeity with concern for stenosis of his right common iliac artery stent. Description of Procedure The patient was taken to the operating room and placed in a supine position. Pre-operative antibiotics, 900mg Clindamycin, were administered and conscious sedation was given, Versed and Fentanyl. Time out was performed and the correct patient, operating site, and procedure were confirmed. The right and left groin were prepped and draped in the usual sterile fashion. Using ultrasound guidance, the right groin was accessed using micropuncture technique. The J wire advanced into the left common femoral artery and the micropuncture needle was exchanged for a 5Fr dilator followed by 5Fr sheath. The J wire was removed and an 0.35'' angled glide wire was advanced into the infrarenal aorta followed by a Pigtail Catheter. An aortogram was performed with power injection (10 for 20, 800 PSI) demonstrating patent bilateral renal arteries, a >90 % stenosis of the right common iliac artery stent, occluded right internal iliac artery with distal reconstitution, and patent external right iliac artery. On the left there was a patent common, internal and external iliac artery. The Angled glide wire was exchanged for a stiff angled glide wire. The Pigtail catheter was removed and the 5Fr sheath was exchanged for a short 8 Fr Sheath. The left groin was then accessed using Seldinger technique. the J- wire was advanced into the left common femoral artery and the micropuncture needle was exchanged for a 7Fr sheath. A angled glide wire was advance into the infrarenal aorta. A 6x60mm Valentine balloon was advanced on the right side to just above the stenotic right common iliac artery stent (prior [id number] VBX bilaterally) and was insufflated to nominal pressure. The balloon was removed. A Pigtail catheter was advanced up the left side. An aortogram was performed under power injection, same settings. The pigtail catheter was removed. The inferior margin of the bilateral renal arteries were marked. A [id number] VBX was advanced on the right to just above the proximal margin of the prior right common iliac artery stent in the infrarenal aorta, below the renal artery. A [id number] VBX was advanced on the left to just above the proximal margin of the prior left common iliac artery stent in the infrarenal aorta, below the renal artery. Both VBX stents were deployed in kissing fashion. A pigtail catheter was advanced up the left side and a aortogram was performed. There was overlying bowel gas and delayed filling of the proximal right common iliac artery stent. The decision was then made to balloon angioplasty the the bilateral common iliac artery stents with the VBX balloon on the right and the [id number] on the left in kissing fashion with the proximal portion of the balloon extending past the proximal portion of the stent. Following this, an aortogram with power injection was performed demonstrating patent bilateral common iliac artery stents without filling defect of delayed filling, bilateral renal arteries patent, bilateral external iliac arteries patent, and patent left internal iliac artery. The wire and balloon were then removed bilaterally. The bilateral groin sheaths were removed and pressure was held. Hemostasis was obtained. PT and DP signals were confirmed. The patient was transferred to the PACU in stable condition. Dr. Isabel was present and scrubbed for the entire procedure. A total of 7.5 min of fluoroscopy time, 834 mGy, and 120cc of contrast I attest to the content of the Intraoperative Record and any orders documented therein. Any exceptions are noted below. Supervising Physician Co-Signing Physician Notes Eliazar Isabel MD
--- NOTE | 2022-11-18 12:36 | Post Operative Brief Note ---
Immediate Post Op Note v1 Date of Surgery November 18, 2022 Pre & Post Diagnosis Operation Date: 11/18/22 10:20 Pre-Op Diagnosis: Restenosis of Iliac Stents Post-Op Diagnosis: Restenosis of Iliac Stents I identified the patient and participated in the time-out.: Yes Procedure Operation Date: 11/18/22 10:20 Actual Procedures p Bilateral Common Iliac Stents, Ultrasound Localization of Bilateral Femoral Arteries, Moderate Sedation [id number](Bilateral) - Eliazar Isabel MD Surgeon Eliazar Isabel MD Securities Consultant MD Braulio Estimated Blood Loss 20 Findings Consistent with Post-Op Diagnosis Anesthesia Type RN Sedation Complications none Disposition Accompanied Patient To Recovery: No Disposition: Recovery Room
[2022-11-18] MEDS: VISIPAQUE IV PRN ×2 (12:52→12:53)
[2022-11-18] MEDS ORDERED: ACETAMINOPHEN W/CODEINE #3 1 TAB PO ONE (14:18)
[2022-11-18] MEDS ORDERED: ACETAMINOPHEN W/CODEINE #3 1 TAB ONE (14:22)
--- NOTE | 2022-11-18 17:03 | CT Scan Report ---
ABDOMEN AND PELVIS CT WITHOUT CONTRAST CT DOSE: 1827.36 mGy.cm HISTORY: low blood pressure sp arteriogram, stents TECHNIQUE: Multiaxial CT images of the abdomen and pelvis were performed without contrast. A dose lo wering technique was utilized adhering to the principles of ALARA. COMPARISON STUDY: Abdomen and pelvis CT 12/17/2021. FINDINGS: Mild dependent changes seen within the lung bases. No pneumoperitoneum. No pneumatosis. L4- 5 posterior decompression and fusion with pedicle screws and rods. No acute fractures identified. The re is a large right groin ill-defined hematoma which is located throughout the subcutaneous soft tiss ues. This abuts and partially surrounds the right inguinal canal and extends towards the right hemisc rotum resulting in leftward deviation of the penis. This right groin hematoma measures approximately 25 x 14 x 6 cm. This does not appear to extend into the extraperitoneal/retroperitoneal space. This a ppears superficial to the rectus abdominous muscles. There is a small left inguinal ill-defined subcu taneous hematoma. There is been interval placement of bilateral common iliac artery stents. Hepatic s teatosis. A few punctate gallstones are noted. No gallbladder wall thickening. The unenhanced pancrea s, spleen, and adrenal glands are unremarkable. There is contrast within the urinary system due to th e recent procedure. No hydronephrosis. No retroperitoneal lymphadenopathy. Moderate calcified plaque within the aorta and iliac arteries. No pelvic lymphadenopathy or pelvic free fluid. The bladder appe ars unremarkable. Colonic diverticulosis. No evidence for acute diverticulitis. No bowel wall thicken ing or obstruction. Normal appendix. IMPRESSION: 1. There is a large ill-defined right groin subcutaneous hematoma which measures approximately 25 x 1 4 x 16 cm as described above. This does not appear to extend into the extraperitoneal/retroperitoneal space. 2. There is a small left inguinal ill-defined subcutaneous hematoma. 3. Cholelithiasis. 4. Additional findings as described above. ACT 112: Negative or not required by law. Electronically signed by: Damon Alvarado M.D. 11/18/2022 5:02 PM
[2022-11-18 17:12] LABS: Hematocrit (blood only) 41.8 % (42.0-52.0); Hemoglobin 13.9 g/dl (14.0-18.0)
--- NOTE | 2022-11-18 17:34 | Communication Note ---
Date of Service: November 18, 2022 Patient developed a right groin hematoma with hypotension. Hgb with a drop. Will admit for observation and follow serial hgb
[2022-11-18] MEDS ORDERED: SODIUM CHLORIDE 0.9% 500 ML IV ONE (17:45)
[2022-11-18] MEDS ORDERED: PANTOprazole 40 MG TAB PO SCH (21:00)
[2022-11-18] MEDS ORDERED: GLUCOSAMINE CHONDROIT VIT C MN PO SCH (21:00)
[2022-11-18] MEDS ORDERED: ATENOLOL 50 MG TABLET PO SCH (21:00)
[2022-11-18] MEDS: ENALAPRIL MALEATE 10 MG TAB PO SCH (21:35)
[2022-11-18] MEDS: amLODIPine BESYLATE 5 MG TAB PO SCH (21:35)
[2022-11-18] MEDS: FAMOTIDINE 40 MG TABLET PO SCH (21:36)
[2022-11-18 21:47] LABS: Hematocrit (blood only) 42.9 % (42.0-52.0); Hemoglobin 14.2 g/dl (14.0-18.0)
[2022-11-19] MEDS: SODIUM CHLORIDE 0.9% 1000ML 1,000 ML IV SCH ×2 (07:07→07:09)
[2022-11-19] MEDS: LACTATED RINGER'S 1,000 ML IV SCH ×2 (07:08→07:10)
[2022-11-19 07:30] LABS: Hematocrit (blood only) 39.6 % (42.0-52.0); Hemoglobin 13.1 g/dl (14.0-18.0)
[2022-11-19] MEDS: amLODIPine BESYLATE 5 MG TAB PO SCH (07:44)
[2022-11-19] MEDS: FAMOTIDINE 40 MG TABLET PO SCH (07:44)
[2022-11-19] MEDS: ENALAPRIL MALEATE 10 MG TAB PO SCH (07:44)
[2022-11-19] MEDS ORDERED: predniSONE 10 MG TABLET PO SCH (09:00)
[2022-11-19] MEDS ORDERED: MULTIVITAMIN TAB PO SCH (09:00)
[2022-11-19] MEDS ORDERED: MAGNESIUM OXIDE 400 MG TAB PO SCH (09:00)
[2022-11-19] MEDS ORDERED: FOLIC ACID 1 MG TAB PO SCH (09:00)
--- NOTE | 2022-11-21 07:43 | Surgery Progress Note ---
Date of Service November 21, 2022 Assessment & Plan (1) Hematoma: Plan: Post procedure groin hematoma with no further bleeding. D/C today Admission and Anticipated Discharge Date Admission Date: November 18, 2022 Subjective No complaints Physical Exam Physical Exam: Bilateral groins without bleeding.
--- NOTE | 2022-11-21 07:46 | Discharge Summary ---
Date of Service November 21, 2022 Admission HPI Per Admitting Provider Mr. Nguyen is a middle-aged male presents to Dr. Isabel[facility] vascular surgery clinic today for a 6-month follow-up visit regarding his history of aortoiliac occlusive disease and bilateral common iliac artery stenting about 8 months ago. Patient states that he has noticed discomfort in his right thigh when ambulating that is relieved after he rests. He describes this sensation as a tingling pain and fatigue in the muscle. He states that he underwent neck surgery on August 24, and that the right thigh symptoms did not seem to be occurring until just a few days ago. He does admit that he has not been very active. Even prior to the neck surgery, he has only been walking short distances and not at a very fast pace due to chronic knee pain and instability. He denies claudication Symptoms in his left leg. He denies rest pain, discoloration of the toes, or other concerns. His aortoiliac ultrasound performed prior to today's appointment demonstrates occlusion of his right iliac stent and severe stenosis in his left iliac stent. Admission Exam Per Admitting Provider Constitutional: In general patient is an obese but healthy-appearing well- nourished well-developed middle-aged male no distress. He is alert and oriented without any focal deficits. His heart is regular, his lungs are clear. His femoral pulses are nonpalpable on the right, +1 on the left. His lower extremity distal pulses are +1 in the left foot, and nonpalpable on the right. He has a brisk capillary fill to the toes and no sign of distal ischemia at this time. His left third toe tip does have a very small ulcer type lesion on the tip. It is hammered. Principal Diagnosis Bilateral iliac artery restenosis, post procedure hematoma Discharge Exam Bilateral groins without bleeding. Discharge Data Allergies Allergy/AdvReac Type Severity Reaction Status Date / Time Penicillins Allergy Mild rash (see Verified 11/18/22 09:25 comments) rosuvastatin AdvReac Mild MUSCLE Verified 11/18/22 09:25 ACHES Procedures Performed Operation Date: 11/18/22 10:20 Actual Procedures p Bilateral Common Iliac Stents, Ultrasound Localization of Bilateral Femoral Arteries, Moderate Sedation [id number](Bilateral) - Eliazar Isabel MD Ordered Studies 11/18/22 07:11 EV Angio Abdomen Aorta Routine US EV guide vascular access Routine 11/18/22 16:22 CT Abd and Pelvis [CT abd pelvis wo con] Stat Hospital Course (1) Hematoma: Post procedure groin hematoma with no further bleeding. D/C today Total Time Total Time Spent Total Time Spent (In Minutes): 0 Discharge Plan Discharge Items Patient Disposition: Home - Self-Care Reason For Visit: RIGHT GROIN HEMATOMA Discharge Diagnosis: Restenosis bilateral iliac artery stents Activity: Per Instructions section Non-emergency contact: Surgeon Call non-emergency contact if: your temperature is above 101.5, your wound has increased redness, your wound has increased drainage and your wound pain has increased Follow-up/Referrals: Osmar Cabral MD [Primary Care Provider] - Eliazar Isabel MD [Physician] - Jorge Attending Provider Instructions: SPECIAL CARE INSTRUCTIONS: Medications: * Continue to take your medications as directed. If you have been given a prescription for Plavix, please fill it immediately and take as directed. Incision Care: * Your puncture site may have some bruising and minor swelling for about one week. * You will have a small dressing covering your puncture site. You may remove the dressing after 24 hours and shower. You may let the warm soapy water run over it, but be sure to dry the puncture site well and keep it dry. * DO NOT IMMERSE THE INCISION IN A TUB/POOL/etc. UNTIL HEALED. * Puncture sites should be kept covered with a band-aid until it begins to heal. Restrictions: * Depending on whether you leg or arm was punctured to access the arteries, you will be required to lay flat, hold your arm still, or both, for about 4 hours after the procedure to prevent bleeding. * Limit your activity for the first 48 hours. You may walk and go up and down steps. Avoid excessive bending or movement at the puncture site. Possible Complications: * Excessive Swelling - after blood flow is improved you may notice increased swelling in the lower legs. This is a normal response. This usually depends on the amount of blockages in the leg, how long they have been there prior to your procedure and how much blood flow was restored. Elevating your legs will help to improve this. Please notify our office ([phone]) if the swelling does not go away after lying in bed overnight. * Infection/Drainage/Bleeding - Drainage or bleeding from the puncture site should be minimal. If you have excessive bleeding or drainage, call our office ([phone]) right away. * Pain - You may experience some mild pain or soreness at your puncture site. If your pain does not improve, please contact our office ([phone]). Call your doctor and seek emergent treatment if you develop: * Temperature above 101 degrees * Any fever or chills * Any redness or purulent drainage from the puncture site * Any new dusky/blue colored toes or feet with coolness or sharp or aching pain. SKIN IRRITATION: * You may experience some redness and/or swelling in the area where radiation was administered. If any skin irritation occurs, please contact your family physician. FOLLOW UP VISIT: Keep any scheduled doctor appointments. Call [phone] to schedule a follow up appointment if one not already scheduled. Pending Studies at Discharge: No Stand-Alone Forms: Anesthesia/Sedation, Adult, [facility] Medications and DC Order Prescriptions: Continued prednisone 5 mg tablet 10 mg PO QAM hydralazine 10 mg tablet 10 mg PO BID Rx Instructions: Take this medication every morning and afternoon atenolol 100 mg Tablet 100 mg PO HS [id number] C-Mn Capsule 1,500 mg PO BID amlodipine-benazepril 5-20 mg capsule 1 cap PO QAM amlodipine-benazepril 5-20 mg capsule 1 cap PO QPM magnesium oxide 400 mg (241.3 mg magnesium) Tablet 400 mg PO QAM Qty: 30 0RF famotidine 40 mg Tablet 40 mg PO BID pantoprazole 40 mg Tablet,Delayed Release (Dr/Ec) 80 mg PO QPM multivitamin Tablet 1 tab PO QAM methotrexate sodium 2.5 mg tablet 10 mg PO WK Rx Instructions: Take q mon. folic acid 1 mg tablet 1 mg PO QAM clopidogrel [Plavix] 75 mg tablet 75 mg PO HS nystatin 100,000 unit/gram powder 1 applic topical BID Qty: 30 1RF oxycodone-acetaminophen [Percocet] 5-325 mg tablet 1 tab PO Q4H PRN (Reason: pain) Qty: 30 0RF Discharge Orders: Discharge Order (Routine); Ordered 11/19/22 Ordered By: Eliazar Diaz/Other Patient Handouts: Preventing Deep Vein Thrombosis Admission Data Admit Date/Time: 11/18/22 17:16 Attending Provider: Eliazar Isabel Admit Provider: Eliazar Isabel Primary Care Provider: Osmar Cabral Other Interventions: Discharge Summary Assessment (RN) Last Done: 11/19/22 10:07
[2022-11-21] MEDS ORDERED: metHOTREXate sodium 2.5 MG TAB PO SCH (09:00)
== END 2022-11-19 14:11 | disposition home or self-care (01) ==
LOC: ASU 08:41 → 3W 08:41

== ENCOUNTER 2024-03-27 08:16 | Observation (INO) ==
--- NOTE | 2024-03-27 08:48 | History & Physical Report ---
Date of Service March 27, 2024 History of Present Illness Primary Care Provider: Zechariah Carbal MD Subjective I had the pleasure of seeing Vincent today for follow-up. As you know he is a 63-year-old gentleman who had bilateral iliac artery stenting done in October 2022. He now comes in the office complaining of severe claudication of his right lower extremity. It started suddenly and has gotten progressively worse. If he does not take his marijuana at nighttime his foot does wake him up. He has motion of the foot and does not complain of any weakness of his foot or leg. He is on Plavix and Eliquis. Review of Systems 10 systems were reviewed. Other than the HPI all were negative. Objective Vitals & Measurements HR: 83 (Monitored) BP: 124/86 SpO2: 96% Physical Exam Physical exam he is awake alert and oriented x 3. He is in no apparent distress. Blood pressure is 124/86. Lungs are clear heart is regular rhythm abdominal exam is benign. Vascular exam reveals radials and carotids +2 bilaterally. Femorals and pedal's are nonpalpable in both lower extremities. He has decreased capillary refill both sides right worse than the left. He is neurologically intact to motor and sensory function of his feet. Diagnostic Results CT scan showed occlusion of bilateral iliac artery stents. Assessment/Plan 1. Aortoiliac stenosis At this point due to his significant claudication recommended an attempt at mechanical thrombectomy and restenting of his iliacs. If mechanical thrombectomy does not work we may need to infuse tPA overnight to both iliac arteries. He understood the risks options benefits of this approach and agrees to go ahead with this procedure. We will schedule him for tomorrow for the procedure. Thank you very much for letting us participate in the care of this patient. Sincerely, Oneil Pascal MD Attestation I have personally spent __25___ minutes performing hfbh-ig-[id number] and lto-oxlo-qp-face activities on this date of service. Activities Include: x__ review of the medical record _x_ obtaining a history _x_ physical exam/evaluation __ review labs _x_ review radiology reports _x_ counseling/educating patient/family/caregiver __ discussion/referral to other healthcare professional _x_ documenting care in the medical record __ independent interpretation of results __ communication of results to patient/family/caregiver __ coordination of care Signature Line Electronic Signature on File Eliazar Pascal MD Author Signature Dt/Tm: 03/26/2024 04:00 PM Multifocal Button Generator [facility] [address], [facility] [address] [place] [address] Electronically Reviewed/Signed by: Eliazar Pascal MD Cosigner Signature Dt/Tm: 03/26/2024 04:02 PM Multifocal Button Generator [facility] [address] [place] [address] EJS Result Type: .Outpt Ltr Date of Service: March 26, 2024 15:57 EDT Authorization Status: Modified Subject: Follow Up Visit Author or Import Date: MD Pascal Eugene J on March 26, 2024 16:00 EDT Verified By: MD Pascal Eugene J on March 26, 2024 16:00 EDT Encounter info: [id number], [place] [address], Clinic, 03/26/2024 - Allergies Allergy/AdvReac Type Severity Reaction Status Date / Time Penicillins Allergy Mild rash (see Verified 11/18/22 09:25 comments) rosuvastatin AdvReac Mild MUSCLE Verified 11/18/22 09:25 ACHES Home Medications Medication Instructions Recorded Confirmed Type amlodipine 5 mg-benazepril 20 mg 1 cap PO QAM 10/21/18 11/18/22 History capsule amlodipine 5 mg-benazepril 20 mg 1 cap PO QPM 10/21/18 11/18/22 History capsule atenolol 100 mg tablet 100 mg PO HS 10/21/18 11/18/22 History [id number]-utxbrzryr-btc C-Mn 1,500 mg PO BID 10/21/18 11/18/22 History capsule hydralazine 10 mg tablet 10 mg PO BID 10/21/18 11/18/22 History prednisone 5 mg tablet 10 mg PO QAM 10/21/18 11/18/22 History magnesium oxide 400 mg (241.3 mg 400 mg PO QAM #30 tabs 09/01/19 11/18/22 Rx magnesium) tablet famotidine 40 mg tablet 40 mg PO BID 08/14/20 11/18/22 History pantoprazole 40 mg tablet,delayed 80 mg PO QPM 08/14/20 11/18/22 History release multivitamin 1 tab PO QAM 08/17/21 11/18/22 History folic acid 1 mg tablet 1 mg PO QAM 12/18/21 11/18/22 History methotrexate sodium 2.5 mg tablet 10 mg PO WK 12/18/21 11/18/22 History oxycodone-acetaminophen 5 mg-325 1 tab PO Q4H PRN pain #30 tabs 01/06/22 11/18/22 Rx mg tablet (Percocet) clopidogrel 75 mg tablet (Plavix) 75 mg PO HS 01/17/22 11/18/22 History nystatin 100,000 unit/gram topical 1 applic topical BID #30 grams 10/27/22 11/18/22 Rx powder acetaminophen 300 mg-codeine 30 mg 1 tab PO Q6H PRN pain #30 tabs 11/21/22 Rx tablet Past Med/Surg History Problem List (Updated 11/21/22 @ 07:42 by Eliazar Pascal MD) Hematoma Bilateral iliac artery stenosis Stenosis of left iliac artery BPH (benign prostatic hyperplasia) Left epididymitis Gross hematuria Urinary symptom or sign Left against medical advice GERD (gastroesophageal reflux disease) Acute kidney injury Encounter for pre-operative examination Lab test negative for COVID-19 virus (Acute) Severe peripheral arterial disease (Acute) Rheumatoid arthritis (Acute) Ischemia of left lower extremity (Acute) s/p bilat iliac artery stents by Dr. Pascal Medical History Abnormal liver enzymes Chronic, mild, under surveillance with routine labs to monitor - LFTs 07/2021 within normal range Acid reflux controlled CKD (chronic kidney disease) baseline creatinine 1.4-1.5 per chart review-PCP monitoring High cholesterol not on medication currently, h/o statin associated myalgias History of herniated intervertebral disc lumbar, s/p fusion HTN (hypertension) controlled, stable per pt Ischemia of left lower extremity s/p bilat iliac artery stents by Dr. Pascal Lung nodule under surveillance, stable x 10 years-NO CHANGES Rheumatoid arthritis chronic prednisone (current dose 10mg daily), follows with rheumatology Sleep apnea possible per records-on CPAP during PNA hospitalization in past per pt, denies formal sleep apnea -testing-NO CHANGE Surgical History Status post biopsy of kidney History of vascular surgery BILAT COMMON ILIAC STENTS-DR PASCAL [facility]-DISCHARGED JANUARY 06 2022-[place] History of arthroscopy of right knee History of right cataract surgery History of left cataract surgery History of lumbar fusion Family History Other No family history of adverse response to anesthesia No pertinent family history Social History Smoking Status: Never smoker Age Quit Using Tobacco: 40; Second Hand Exposure: No; Do You Dip or Chew Tobacco: No; Hx Alcohol Use: Yes Alcohol type: beer Hx Substance Use: No Preferred Language: Vietnamese Communication Ability: Effective Web Methods Developer Required: No Beliefs That Will Affect Care: None Current Living Situation: Spouse current occupational status: employed 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
--- NOTE | 2024-03-27 09:01 | History & Physical Bridge Note ---
Date of Service March 27, 2024 History & Physical Bridge Note I have examined the patient, reviewed the History & Physical and in the interval since the performance of the History & Physical I have noted the following changes of clinical significance: no changes noted
[2024-03-27] MEDS ORDERED: LIDOCAINE 2% 2 ML VIAL/AMP(20MG/ML) INFIL ONE (09:10)
[2024-03-27] MEDS ORDERED: MIDAZOLAM HCL 1 MG/ML 2ML VIAL ONE ×2 (09:10→11:28)
[2024-03-27] MEDS ORDERED: ONDANSETRON INJ 2 MG/ML 2 ML VIAL ONE ×2 (09:10→10:53)
[2024-03-27] MEDS ORDERED: PROPOFOL IV EMULSION 10 MG/ML 20 ML VIAL IV ONE ×3 (09:10→10:44)
[2024-03-27] MEDS ORDERED: DEXAMETHASONE SOD INJ 4 MG/ML VIAL ONE (09:10)
[2024-03-27] MEDS ORDERED: ROCURONIUM BROMIDE 10 MG/ML 5 ML VIAL IV ONE ×5 (09:11)
[2024-03-27] MEDS ORDERED: fentaNYL citrate PF 100 MCG/2 ML VIAL ONE (09:11)
[2024-03-27] MEDS ORDERED: KETAMINE HCL 10MG/ML SYR ONE (09:25)
[2024-03-27] MEDS ORDERED: GLYCOPYRROLATE 0.2 MG/ML VIAL ONE (09:25)
[2024-03-27] MEDS: LACTATED RINGER'S 1,000 ML BAG IV SCH (09:32)
--- NOTE | 2024-03-27 09:36 | Anesthesiology Consultation ---
Date of Service March 27, 2024 Assessment & Plan Chart Review Chart Review: Acceptable Risk for Surgery and Patient NOT seen in Pre Admission Testing Consults Requested none ASA ASA4 Proposed Anesthesia Anesthesia Type: MAC Risk / Benefits Reviewed With: PT / POA / Parent / Guardian, Accepts Plan and Informed Consent Obtained History Surgery Operation Date: 03/27/24 07:50 Proposed Procedures p Bilateral Iliac Arteries Mechanical Thrombectomy with Bilateral Resenting, Possibe TPA - Eliazar Pascal MD Height/Weight Height: 6 ft Weight: 125.9 kg Allergies Allergy/AdvReac Type Severity Reaction Status Date / Time Penicillins Allergy Mild rash (see Verified 03/27/24 08:55 comments) rosuvastatin AdvReac Mild MUSCLE Verified 03/27/24 08:55 ACHES Medications Home Medications Medication Instructions Recorded Confirmed Last Taken amlodipine 5 mg-benazepril 20 mg 1 cap PO QAM 10/21/18 03/27/24 03/27/24 04:30 capsule amlodipine 5 mg-benazepril 20 mg 1 cap PO QPM 10/21/18 03/27/24 03/26/24 20:00 capsule atenolol 100 mg tablet 100 mg PO HS 10/21/18 03/27/24 03/26/24 20:00 hydralazine 10 mg tablet 10 mg PO BID 10/21/18 03/27/24 03/27/24 04:30 prednisone 5 mg tablet 10 mg PO QAM 10/21/18 03/27/24 03/27/24 04:30 famotidine 40 mg tablet 40 mg PO BID 08/14/20 03/27/24 03/26/24 20:00 pantoprazole 40 mg tablet,delayed 80 mg PO QPM 08/14/20 03/27/24 03/27/24 04:30 release folic acid 1 mg tablet 1 mg PO QAM 12/18/21 03/27/24 03/26/24 04:30 methotrexate sodium 2.5 mg tablet 10 mg PO WK 12/18/21 03/27/24 03/25/24 08:00 oxycodone-acetaminophen 5 mg-325 1 tab PO Q4H PRN pain #30 tabs 01/06/22 Unknown mg tablet (Percocet) clopidogrel 75 mg tablet (Plavix) 75 mg PO HS 0303/27/24 03/27/24 04:30 nystatin 100,000 unit/gram topical 1 applic topical BID #30 grams 10/27/22 0 03/27/24 Unknown powder acetaminophen 300 mg-codeine 30 mg 1 tab PO Q6H PRN pain #30 tabs 11/21/22 03/27/24 03/26/24 18:00 tablet Active Medications Generic Name Dose Route Start Last Admin Trade Name Freq PRN Reason Stop Dose Admin Lactated Ringer's 1,000 mls @ 80 mls/hr 03/27/24 06:00 03/27/24 09:32 Lr IV 03/27/24 18:29 80 mls/hr .[id number] Administration NPO Date Last Intake of Fluids: 03/27/24 Time Last Intake of Fluids: 04:30 Last Intake of Fluids Comment: sip black coffee Date Last Intake of Solids: 03/26/24 Time Last Intake of Solids: 20:00 Last Intake of Solids Comment: 1999 Past Medical History Medical History CKD (chronic kidney disease) baseline creatinine 1.4-1.5 per chart review-PCP monitoring Abnormal liver enzymes Chronic, mild, under surveillance with routine labs to monitor - LFTs 07/2021 within normal range Acid reflux controlled History of herniated intervertebral disc lumbar, s/p fusion Lung nodule under surveillance, stable x 10 years-NO CHANGES High cholesterol not on medication currently, h/o statin associated myalgias Sleep apnea possible per records-on CPAP during PNA hospitalization in past per pt, denies formal sleep apnea -testing-NO CHANGE Rheumatoid arthritis chronic prednisone (current dose 10mg daily), follows with rheumatology HTN (hypertension) controlled, stable per pt Exercise / Class Metabolic Activity III < 4 Walking/Shop/Light housework Past Family History Family History Other No family history of adverse response to anesthesia No pertinent family history Past Surgical History Surgical History Status post biopsy of kidney History of vascular surgery BILAT COMMON ILIAC STENTS-DR PASCAL [facility]-DISCHARGED JANUARY 06 2022-[place] History of arthroscopy of right knee History of right cataract surgery History of left cataract surgery History of lumbar fusion Past Anesthesia History No Hx of Anesthesia Complications and No Family Hx of Anesthesia Complications History of PONV No Hx of PONV and No Hx of Motion Sickness Social History Smoking Status: Former smoker tobacco type: cigarettes Do You Dip or Chew Tobacco: No Hx Alcohol Use: Yes Alcohol type: wine and hard liquor alcohol intake frequency: 0-2 drinks per day Hx Substance Use: Yes substance use type: marijuana Substance Use Type Other:: SINA CARRASCO 1 AT HS USED LAST EVENING Last Used Substance: Days (ago) Physical Exam Vital Signs Last Vital Signs Temp 36.5 C 03/27/24 09:01 Pulse 78 03/27/24 09:01 Resp 20 03/27/24 09:01 BP 131/85 03/27/24 09:01 Pulse Ox 96 03/27/24 09:01 O2 Del Method Room Air 03/27/24 09:01 Constitutional + morbidly obese; no acute distress ENMT Mouth: + dentition abnormality and + dental restorations Thyromental Distance: > or= 3.5 Finger Breadths Mallampati Class: II Neck normal visual inspection, trachea midline and + facial hair; neck extension not limited Respiratory normal respiratory effort Auscultation: lungs clear to auscultation bilaterally and + diminished lung sounds Cardiovascular Rate/Rhythm: regular rate and regular rhythm Heart Sounds: no murmur Vessels: no carotid bruit Musculoskeletal Spine: normal cervical ROM and no pain with cervical ROM Extremities: extremities normal to inspection; full ROM of extremities Neurologic moves all extremities Motor/Sensory: + sensory deficit Psychiatric Orientation: alert and oriented x 3 Testing Electrocardiogram Date: 01/04/22 Findings: + SB @ (@ 55) Echocardiogram Date: 08/31/19 EF: 55% LV Function: normal RWMA: + none Other Findings: + diastolic dysfunction (Grade 1) Valvular Disease: + no significant valvular disease Stress Test Date: 09/26/23 Type: nuclear Findings: + WNL Resting EF: > 70% Resting LV Function: normal
[2024-03-27] MEDS ORDERED: ePHEDrine sulfate 50 MG/ML AMP IV PRN (09:42)
[2024-03-27] MEDS ORDERED: PROMETHAZINE HCL 6.25 MG in SODIUM CHLORIDE 0.9% 50 ML IV PRN (09:42)
[2024-03-27] MEDS ORDERED: FLUMAZENIL 0.1 MG/1 ML 10 ML VIAL IV PRN (09:42)
[2024-03-27] MEDS ORDERED: NALOXONE HCL 0.4 MG/1 ML VIAL/CARP IV PRN (09:42)
[2024-03-27] MEDS ORDERED: ONDANSETRON INJ 2 MG/ML 2 ML VIAL IV PRN (09:42)
[2024-03-27] MEDS ORDERED: LABETALOL HCL IV 5 MG/ML 20ML IV PRN (09:42)
[2024-03-27] MEDS ORDERED: ATROPINE SULFATE 0.1 MG/ML 10ML SYR IV PRN (09:42)
[2024-03-27 09:58] LABS: Hemoglobin 14.2 g/dl (14.0-18.0); Mean Corpuscular Hemoglobin 29.4 pg (25.0-34.0); Mean Corpuscular Hgb Conc 32.3 g/dL (32.0-36.0); Mean Corpuscular Volume 91.1 fL (80.0-100.0); Mean Platelet Volume 8.4 fL (9.4-12.4); Platelet Count 304 K/uL (130-400); RDW Standard Deviation 52.7 fL (36.4-46.3); Red Blood Count 4.83 M/uL (4.70-6.10); White Blood Count 12.98 K/ul (4.8-10.8)
[2024-03-27 10:03] LABS: BUN Creatinine Ratio 11.6 (10-20); Creatinine Clr Calc Pharmacy 75.1 ml/min; Est GFR (African American) 62.6 ml/min; Potassium 4.8 mmol/L (3.5-5.1)
[2024-03-27 10:16] LABS: Partial Thromboplastin Ratio 0.9; Partial Thromboplastin Time 25 Seconds (21-31); Prothrombin Time 11.2 Seconds (9.0-12.0)
[2024-03-27] MEDS ORDERED: VISIPAQUE IV PRN (10:17)
[2024-03-27] MEDS ORDERED: PHENYLEPHRINE 100MCG/ML 10ML SYR IV ONE (10:33)
[2024-03-27] MEDS ORDERED: HEPARIN SOD (PORCINE) 1000 UNIT/ML ONE (10:41)
--- NOTE | 2024-03-27 11:58 | Procedure Note ---
Angiogram Post Procedure Fluoroscopy Time (minutes): 12.9 Radiation (mGy): 1,222 Contrast: 125 Post Operative Report Pre & Post Diagnosis Operation Date: 03/27/24 07:50 Pre-Op Diagnosis: Bilaeral Iliac Artery Occlusions Post-Op Diagnosis: Bilaeral Iliac Artery Occlusions I identified the patient and participated in the time-out.: Yes Procedure Operation Date: 03/27/24 07:50 Actual Procedures p Bilateral Common Iliac Arteries Mechanical Thrombectomy Angiojet with Bilateral Restenting, Ultrasound Localization of Bilateral Femoral Arteries, Mechanical Closure of the Left Common Femoral Artery - Eliazar Isabel MD Surgeon Eliazar Isabel MD [place] none Estimated Blood Loss 50 Findings Consistent with Post-Op Diagnosis Specimens none Anesthesia Type MAC Complications none Disposition Accompanied Patient To Recovery: No Disposition: Recovery Room Indications This is a 63-year-old gentleman who had bilateral common iliac artery stents in the past. He had back surgery in early February at which point he had to come off his Plavix. Subsequent to this he started developing claudication which has now become severe in the right lower extremity and moderate in the left lower extremity. Noninvasive suggest that bilateral iliac stent occlusions. Arteriography with possible invention was recommended. I have discussed the risks options and benefits of the procedure with the patient. The patient understands the risks options and benefits and agrees to the procedure. Description of Procedure The patient was taken the operating room placed supine position. After groins were prepped draped in a sterile manner patient was identified and a timeout was performed. Local anesthetic was administered to the right groin. Using ultrasound the right common femoral artery was identified. A percutaneous puncture was made in the common femoral artery on the right side with ultrasound guidance. 035 wire was inserted and a 5 Greek sheath inserted over the wire. An injection showed occlusion of the common iliac artery down to the midportion of the external. 035 wire was then inserted. It passed through the occlusion fairly easily and was passed into the distal aorta. Next the left groin was imaged. The common femoral artery was identified. It was patent. Using ultrasound guidance the left common femoral artery was punctured and a 5 Greek sheath inserted. Using 035 Glidewire the wire passed up into the stent. It was difficult to pass the proximal end of the stent. A Kumpe catheter was inserted and with a Kumpe and guidewire passed fairly easily. We then exchanged the 5 Greek sheaths to 6 Greek sheaths. We had difficulty on the right side as the wire was too floppy. Pressure was applied while we inserted a Kumpe catheter exchanged the wire to a stiff Glidewire. There was a fairly large hematoma present at that point being that there was no sheath in the groin for short period of time. On the left side we exchanged the floppy wire for a stiff and Glidewire using the Kumpe catheter. We then exchanged that sheath to a 6 Greek sheath. Once the wire were in place we used a proxy AngioJet catheter and did a mechanical thrombectomy on both sides coming from the proximal stent down to the external iliac arteries on both sides. We did 2 passes on both sides. Good results were seen. There was a narrowing still noticed at the distal end of the old stent in the proximal external iliac artery on the right as well as the distal end of the old stent on the left. We therefore exchanged the 6 Greek sheaths to 8 Greek sheaths. We inserted a VBX 8 x 79 on the right and an 8 x 59 on the left. We started the stents slightly above the old stents approximately half a centimeter. Both stents were deployed. Being that they were shorter than the previous stents we then inserted an 8 x 39 on both sides to complete the coverage of the old stents and to extend the stents through the narrowings which were just distal to the old stents. We then inserted a 10 x 4 and 10 x 2 balloon and expanded the proximal ends of the VBX on both sides. At the end we inserted a pigtail catheter and did hand-injection which showed good flow through both common iliac arteries and no residual narrowing seen through the of the iliac system on both sides. There were Doppler signals heard in both feet at this time. We attempted to close the puncture on the right with a Star close. Upon exchanging the sheets the wire buckled and the sheath pulled out of the artery. We therefore held compression manually close the puncture site. There was a fairly large orange sized hematoma present in the right groin. On the left side we exchanged the sheath to the StarClose sheath. StarClose wire nicely and added hemostasis was noted. Pressure dressing was then applied to the right groin.The patient left the operation room in satisfactory condition and tolerated the procedure well. All needle and sponge counts were correct at the end of the procedure. I attest to the content of the Intraoperative Record and any orders documented therein. Any exceptions are noted below.
[2024-03-27] MEDS: fentaNYL citrate PF 100 MCG/2 ML VIAL IV PRN (12:14)
[2024-03-27 12:50] LABS: Hematocrit (blood only) 36.2 % (42.0-52.0)
--- NOTE | 2024-03-27 13:05 | Anesthesiology Progress Note ---
Date of Service March 27, 2024 Anesthesia Post Procedure Vital Signs Vital Signs: Temp Pulse Resp BP BP Pulse Ox O2 Del Method 03/27/24 09:01 36.5 C 78 20 107/81 131/85 96 Room Air Transfer of Care Handoff Completed per policy Notes Mental Status: alert / awake / arousable Patient Amnestic to Procedure: Yes Nausea / Vomiting: adequately controlled Pain: adequately controlled Airway Patency, RR, SpO2: stable & adequate BP & HR: stable & adequate Hydration State: stable & adequate Anesthetic Complications: no major complications apparent Notes: Pt in/out Afib w/ controlled HR;Pt seen kiln repairer last week and was in A Fib; Discussed w/ Dr Isabel and he was aware of this.
[2024-03-27] MEDS: HEPARIN SOD (PORCINE) 1000 UNIT/ML ONE ×2 (15:40)
[2024-03-27] MEDS: HEPARIN 25000 UNIT/500 ML D5W IV ONE (15:40)
[2024-03-27] MEDS: LIDOCAINE 1% LOCAL 20 ML VIAL ONE (15:40)
[2024-03-27] MEDS: CLINDAMYCIN/D5W 900 MG/50 ML BAG IV SCH (15:51)
[2024-03-27] MEDS: SODIUM CHLORIDE 0.9% 1,000 ML IV SCH (15:54)
[2024-03-27] MEDS: ACETAMINOPHEN W/CODEINE #3 1 TAB PO PRN (16:46)
[2024-03-27] MEDS: CLOPIDOGREL BISULFATE 300 MG TAB PO STA (16:46)
[2024-03-27] MEDS: CLOPIDOGREL BISULFATE 300 MG TAB ONE (16:47)
[2024-03-27 18:23] LABS: Hematocrit (blood only) 35.2 % (42.0-52.0); Hemoglobin 11.6 g/dl (14.0-18.0)
[2024-03-27] MEDS: ENALAPRIL MALEATE 10 MG TAB PO SCH (20:05)
[2024-03-27] MEDS: NYSTATIN POWDER 15GM BTL EXT SCH (20:05)
[2024-03-27] MEDS: amLODIPine BESYLATE 5 MG TAB PO SCH (20:05)
[2024-03-27] MEDS: hydrALAZINE 10 MG TAB PO SCH (20:06)
[2024-03-27] MEDS: ATENOLOL 50 MG TABLET PO SCH (20:06)
[2024-03-27] MEDS: FAMOTIDINE 40 MG TABLET PO SCH (20:07)
[2024-03-27] MEDS: PANTOprazole 40 MG TAB PO SCH (20:08)
[2024-03-27] MEDS: oxyCODONE/ACETAMINOPHEN 5mg/325mg TAB PO PRN (20:10)
[2024-03-28 06:27] LABS: Hematocrit (blood only) 31.8 % (42.0-52.0); Hemoglobin 10.4 g/dl (14.0-18.0)
[2024-03-28] MEDS: predniSONE 10 MG TABLET PO SCH (09:09)
[2024-03-28] MEDS: FOLIC ACID 1 MG TAB PO SCH (09:10)
[2024-03-28] MEDS: CLOPIDOGREL BISULFATE 75 MG TAB PO SCH (09:10)
--- NOTE | 2024-03-28 14:15 | Surgery Progress Note ---
Date of Service March 28, 2024 Assessment & Plan (1) Bilateral iliac artery stenosis: Plan: doing well post re stenting and mechanical thrombectomy will d/c home today (2) Acute blood loss as cause of postoperative anemia: Plan: hgb drop is from groin hematoma during the procedure. hgb stable and patient asx. Admission and Anticipated Discharge Date Admission Date: March 27, 2024 Subjective No complaints. No foot pain or groin pain Physical Exam Constitutional: WD/WN, vitals as above Respiratory: normal respiratory effort; no respiratory distress Cardiovascular: Rate/Rhythm: regular rate and regular rhythm good pedal dopplers Skin: + incision (dressings intact.) no groin hematomas appreciated Psychiatric: Orientation: alert and oriented x 3 Results & Data Vital Signs (Past 12 Hours) Vital Signs Temp Pulse Pulse Resp BP BP Pulse Ox 03/28/24 11:27 36.6 C 63 20 93/60 L 89 L 03/28/24 10:17 63 97/64 L 03/28/24 07:55 36.4 C L 61 18 110/70 91 03/28/24 07:45 60 03/28/24 03:00 36.7 C 56 L 16 109/78 92 O2 Del Method 03/28/24 11:27 Room Air 03/28/24 10:17 03/28/24 07:55 Room Air 03/28/24 07:45 03/28/24 03:00 Room Air
--- NOTE | 2024-03-28 14:22 | Discharge Summary ---
Date of Service March 28, 2024 Admission HPI Per Admitting Provider Subjective I had the pleasure of seeing Vincent today for follow-up. As you know he is a 63-year-old gentleman who had bilateral iliac artery stenting done in October 2022. He now comes in the office complaining of severe claudication of his right lower extremity. It started suddenly and has gotten progressively worse. If he does not take his marijuana at nighttime his foot does wake him up. He has motion of the foot and does not complain of any weakness of his foot or leg. He is on Plavix and Eliquis. Review of Systems 10 systems were reviewed. Other than the HPI all were negative. Objective Vitals & Measurements HR: 83 (Monitored) BP: 124/86 SpO2: 96% Physical Exam Physical exam he is awake alert and oriented x 3. He is in no apparent distress. Blood pressure is 124/86. Lungs are clear heart is regular rhythm abdominal exam is benign. Vascular exam reveals radials and carotids +2 bilaterally. Femorals and pedal's are nonpalpable in both lower extremities. He has decreased capillary refill both sides right worse than the left. He is neurologically intact to motor and sensory function of his feet. Diagnostic Results CT scan showed occlusion of bilateral iliac artery stents. Assessment/Plan 1. Aortoiliac stenosis At this point due to his significant claudication recommended an attempt at mechanical thrombectomy and restenting of his iliacs. If mechanical thrombectomy does not work we may need to infuse tPA overnight to both iliac arteries. He understood the risks options benefits of this approach and agrees to go ahead with this procedure. We will schedule him for tomorrow for the procedure. Thank you very much for letting us participate in the care of this patient. Sincerely, Oneil Isabel MD Attestation I have personally spent __25___ minutes performing [id number] and [id number] activities on this date of service. Activities Include: x__ review of the medical record _x_ obtaining a history _x_ physical exam/evaluation __ review labs _x_ review radiology reports _x_ counseling/educating patient/family/caregiver __ discussion/referral to other healthcare professional _x_ documenting care in the medical record __ independent interpretation of results __ communication of results to patient/family/caregiver __ coordination of care Signature Line Electronic Signature on File Eliazar Isabel MD Author Signature Dt/Tm: 03/26/2024 04:00 PM Printer Assistant [facility] [place] [address] [address] [facility] [address] [place] [address] Electronically Reviewed/Signed by: Eliazar Isabel MD Cosigner Signature Dt/Tm: 03/26/2024 04:02 PM Printer Assistant Blake Franco [facility] [address], [facility] [address] [place] [address] EJS Result Type: .Outpt Ltr Date of Service: March 26, 2024 15:57 EDT Authorization Status: Modified Subject: Follow Up Visit Author or Import Date: MD Isabel Eugene J on March 26, 2024 16:00 EDT Verified By: MD Isabel Eugene J on March 26, 2024 16:00 EDT Encounter info: [id number], [place] [address], Clinic, 03/26/2024 - Admission Exam Per Admitting Provider Physical exam he is awake alert and oriented x 3. He is in no apparent distress. Blood pressure is 124/86. Lungs are clear heart is regular rhythm abdominal exam is benign. Vascular exam reveals radials and carotids +2 bilaterally. Femorals and pedal's are nonpalpable in both lower extremities. He has decreased capillary refill both sides right worse than the left. He is neurologically intact to motor and sensory function of his feet Principal Diagnosis Bilateral iliac artery occlusions Discharge Exam Constitutional WD/WN, vitals as above Respiratory normal respiratory effort; no respiratory distress Cardiovascular Rate/Rhythm: regular rate and regular rhythm Skin + incision (dressings intact.) Psychiatric Orientation: alert and oriented x 3 Discharge Data Allergies Allergy/AdvReac Type Severity Reaction Status Date / Time Penicillins Allergy Mild rash (see Verified 03/27/24 08:55 comments) rosuvastatin AdvReac Mild MUSCLE Verified 03/27/24 08:55 ACHES Procedures Performed Operation Date: 03/27/24 07:50 Actual Procedures p Bilateral Common Iliac Arteries Mechanical Thrombectomy Angiojet with Bilateral Restenting, Ultrasound Localization of Bilateral Iliac Arteries, Mechanical Closure of the Left Common Iliac Artery - Eliazar Isabel MD Ordered Studies 03/27/24 08:49 EV Angio Abdomen Aorta Routine US EV guide vascular access Routine Hospital Course (1) Bilateral iliac artery stenosis: doing well post re stenting and mechanical thrombectomy will d/c home today (2) Acute blood loss as cause of postoperative anemia: hgb drop is from groin hematoma during the procedure. hgb stable and patient asx. Total Time Total Time Spent Total Time Spent (In Minutes): 0 Discharge Plan Discharge Items Patient Disposition: Home - Self-Care Reason For Visit: Bilaeral Iliac Artery Occlusions Discharge Diagnosis: Bilateral iliac artery occlusions Activity: Per Instructions section Non-emergency contact: Surgeon Call non-emergency contact if: your temperature is above 101.5, your wound has increased redness, your wound has increased drainage and your wound pain has increased Follow-up/Referrals: Zechariah Cabral MD [Primary Care Provider] - Diet: Heart Healthy Addtl Attending Provider Instructions: SPECIAL CARE INSTRUCTIONS: Medications: * Continue to take your medications as directed. If you have been given a prescription for Plavix, please fill it immediately and take as directed. Incision Care: * Your puncture site may have some bruising and minor swelling for about one week. * You will have a small dressing covering your puncture site. You may remove the dressing after 24 hours and shower. You may let the warm soapy water run over it, but be sure to dry the puncture site well and keep it dry. * DO NOT IMMERSE THE INCISION IN A TUB/POOL/etc. UNTIL HEALED. * Puncture sites should be kept covered with a band-aid until it begins to heal. Restrictions: * Depending on whether you leg or arm was punctured to access the arteries, you will be required to lay flat, hold your arm still, or both, for about 4 hours after the procedure to prevent bleeding. * Limit your activity for the first 48 hours. You may walk and go up and down steps. Avoid excessive bending or movement at the puncture site. Possible Complications: * Excessive Swelling - after blood flow is improved you may notice increased swelling in the lower legs. This is a normal response. This usually depends on the amount of blockages in the leg, how long they have been there prior to your procedure and how much blood flow was restored. Elevating your legs will help to improve this. Please notify our office ([phone]) if the swelling does not go away after lying in bed overnight. * Infection/Drainage/Bleeding - Drainage or bleeding from the puncture site should be minimal. If you have excessive bleeding or drainage, call our office ([phone]) right away. * Pain - You may experience some mild pain or soreness at your puncture site. If your pain does not improve, please contact our office ([phone]). Call your doctor and seek emergent treatment if you develop: * Temperature above 101 degrees * Any fever or chills * Any redness or purulent drainage from the puncture site * Any new dusky/blue colored toes or feet with coolness or sharp or aching pain. SKIN IRRITATION: * You may experience some redness and/or swelling in the area where radiation was administered. If any skin irritation occurs, please contact your family physician. FOLLOW UP VISIT: Keep any scheduled doctor appointments. Call [phone] to schedule a follow up appointment if one not already scheduled. Pending Studies at Discharge: No Stand-Alone Forms: [facility], Smoking Cessation Medications and DC Order Prescriptions: Continued prednisone 5 mg tablet 10 mg PO QAM hydralazine 10 mg tablet 10 mg PO BID Rx Instructions: Take this medication every morning and afternoon atenolol 100 mg Tablet 100 mg PO HS amlodipine-benazepril 5-20 mg capsule 1 cap PO QAM amlodipine-benazepril 5-20 mg capsule 1 cap PO QPM famotidine 40 mg Tablet 40 mg PO BID pantoprazole 40 mg Tablet,Delayed Release (Dr/Ec) 80 mg PO QPM methotrexate sodium 2.5 mg tablet 10 mg PO WK Rx Instructions: Take q mon. folic acid 1 mg tablet 1 mg PO QAM clopidogrel [Plavix] 75 mg tablet 75 mg PO HS nystatin 100,000 unit/gram powder 1 applic topical BID Qty: 30 1RF acetaminophen-codeine 300-30 mg tablet 1 tab PO Q6H PRN (Reason: pain) Qty: 30 0RF oxycodone-acetaminophen [Percocet] 5-325 mg tablet 1 tab PO Q4H PRN (Reason: pain) Qty: 30 0RF Discharge Orders: Discharge Order (Routine); Ordered 03/28/24 Ordered By: Eliazar Isabel Admission Data Admit Date/Time: 03/27/24 11:37 Attending Provider: Eliazar Isabel Admit Provider: Eliazar Isabel Primary Care Provider: Zechariah Cabral
--- OUTSIDE RECORDS SUMMARY | 2024-03-29 13:51 | External Medical Summary | Continuity of Care Document ---
Author Name Unknown Organization [place] [address] [address] [facility] [address] [address] [id number] Care Team Providers Care Electronics Repair Technician Name Role Phone Zechariah Cabral Primary Care Physician [phone] [facility] [id number] Date(s): 03/25/24 - 03/25/[address] [place] [address] [facility] Neurosurgery [address] [place] [address] [address] [phone] Discharge Disposition: Home or Self Care Attending Physician: TIMO Maddox Renee D Referring Physician: MD Martins G Brodie Allergies, Adverse Reactions, Alerts Substance Criticality Severity Reaction Reaction Severity Status atorvastatin Myalgias Active Zetia cramps Active rosuvastatin cramping Active Statins (HMG-CoA reductase inhibitors) cramps, myalgias Ac tive PCN (penicillin) rash Act anneliese Assessment and Plan Extracted from: Title:Clinical Document Author:TIMO Maddox Rene e D Date:03/25/24 OUTPATIENT NOTE Name: VINCENT NGUYEN Jr. Patient Number:1 [id number] : 1960 Date of Service: 03/25/2024 Vincent Nguyen Jr. returns to the neurosurgery office today for a 1-month post-operative visit. He is a pleasant 63-year-old gentleman who recently underwent L3-4 bilateral laminotomy with posterior fusion using instrumentation at L3-4, removal of L4-5 ped[address] instrumentation by Dr[address] Martins on February 21, 2024. He is unaccompanied for today's visit. He reports today that shortly after his last visit to the neurosurgery office 2 weeks ago, he noticed that his right 3rd toe was black and had associated right foot pain. This is consistent with his prior experience of vascular issues leading to stent placement. He contacted his vascular surgeon and has undergone evaluation, including ultrasound and CT scans. He is scheduled to see his surgeon tomorrow to discuss revision of his stents to address this issue. From a neurosurgical perspective, he reports that he continues to do well. His pre- operative lower back pain and balance issues have resolved. He has some dysesthesia in the right heel, which is improving. He has not had any difficulty with his incision. Denies and fevers, sweats or chills or any signs or symptoms of infection. He has no other issues to discuss with today's visit. His past medical and surgical history medications were reviewed in the office today and are enclosed within his chart. On exam today, he is awake, alert, and oriented x 3, conversant and appropriate. Vital signs were obtained and are enclosed within his chart. His weight is 128.8 kg. He present in his wheelchair today due to distance for walking. He has good strength in the lower extremities with intact sensation to light touch throughout the bilateral lower extremities. His incision is healing well without any erythema or drainage noted. Upright AP & lateral x-rays of the lumbar spine were obtained in conjunction with today's visit and personally reviewed by this clinician. These show stable configuration of the instrumentation. These results were discussed with the patient today. Overall, Andrew is doing expectantly following recent bilateral L3-4 laminotomy with posterior instrumented fusion and removal of L4-5 posterior instrumentation performed approximately 1 month ago. He was asked to continue with a 10 pound weight restriction and may otherwise perform activities as tolerated, unless otherwise instructed by his vascular surgeon. We reviewed medication instructions provided by Dr. Martins in regards to his rheumatology treatments. Presently, his vascular issues are his predominant issues at this time and he is following closely with his respective surgeon. We will plan to follow-up with Andrew in 6-8 weeks for his 3- month post-operative visit with upright AP, lateral, flexion and extension x-rays completed at that time. He knows that he may contact the office in the interim should the need arise. Additional questions were answered to his satisfaction. Today's visit was completed in collaboration with Dr. Martins. Immunizations Given and Recorded Vaccine Date Status Refusal Reason zoster vaccine, inactivated 01/24/24 Given zoster vaccine, inactivated 02/20/23 Given pneumococcal 20-valent conjugate vaccine 02/20/23 Given SARS-CoV-2 (COVID-19) mRNA-1273 vaccine 10/20/21 R ecorded SARS-CoV-2 (COVID-19) mRNA-1273 vaccine 1 09/22/21 Recorded SARS-CoV-2 (COVID-19) mRNA-1273 vaccine 2 12/30/20 Recorded SARS-CoV-2 (COVID-19) mRNA-1273 vaccine 3 12/02/20 Recorded influenza virus vaccine, inactivated 09/08/21 Give n influenza virus vaccine, inactivated 09/09/20 Give n influenza virus vaccine, inactivated 11/14/18 Give n influenza virus vaccine, inactivated 06/23/17 Sylvester rded tetanus/diphtheria/pertuss, acel (Tdap) 11/30/17 G iven pneumococcal 23-valent vaccine 04/02/12 Recorded influenza virus vaccine, H1N1 4 11/03/09 Recorded 1Result Comment: 2022-05-23: Historical information-source unspecified 2Result Comment: 2021-09-08: Historical information-source unspecified 3Result Comment: 2021-09-08: Historical information-source unspecified 4Result Comment: 2021-09-08: Historical information-source unspecified Medications amlodipine-benazepril 5 mg-20 mg oral capsule Start: 02/07/24 5:41:00 PM EDT, See Instructions, Disp# 270 cap, Refills: 4, TAKE 2 CAPSULES EVERY MORNING AND 1 CAPSULE EVERYEVENING, Pharmacy: [facility] Start Date: 02/07/24 Status: Ordered apixaban 5 mg oral tablet Start: 09/25/23 12:16:00 PM EST, See Instructions, Disp# 180 tab, Refills: 3, 1 tab PO twice daily, called to pharmacy Start Date: 09/25/23 Status: Ordered atenolol 100 mg oral tablet Start: 08/28/23 11:48:00 AM EST, 1 tab, PO, Daily, Disp# 90 tab, Refills: 4, Pharmacy: [id number] Start Date: 08/28/23 Status: Ordered clopidogrel 75 mg oral tablet Start: 07/13/23 8:32:00 AM EDT, 1 tab, PO, Daily, Disp# 90 tab, Refills: 3, Pharmacy: [facility]/pharmacy #[id number] Start Date: 07/13/23 Status: Ordered famotidine 40 mg oral tablet Start: 08/03/23 11:00:00 AM EDT, 1 tab, PO, bid, Disp# 180 tab, Refills: 3, Pharmacy: [id number] Start Date: 08/03/23 Status: Ordered Flexeril 10 mg oral tablet Start: 02/22/24 1:50:00 PM EDT, 1 tab, PO, tid, Disp# 21 tab, Pharmacy: [facility] Start Date: 02/22/24 Stop Date: 02/29/24 Status: Ordered folic acid Start: 01/03/22 4:30:00 PM EDT, 1 mg =, Daily Start Date: 01/03/22 Status: Ordered hydrALAZINE 10 mg oral tablet Start: 08/28/23 11:48:00 AM EST, 1 tab, PO, bid, Disp# 180 tab, Refills: 4, Pharmacy: [id number] Start Date: 08/28/23 Status: Ordered ibuprofen Start: 10/06/23 7:41:00 AM EST, 200 mg =, PO, q6h, prn Start Date: 10/06/23 Status: Ordered methotrexate 2.5 mg oral tablet Start: 01/03/22 4:30:00 PM EDT, 7 tab, PO, qMonday Start Date: 01/03/22 Status: Ordered pantoprazole 40 mg oral delayed release tablet Start: 08/03/23 11:00:00 AM EDT, 1 tab, PO, Daily, Disp# 90 tab, Refills: 3, Pharmacy: [id number] Start Date: 08/03/23 Status: Ordered predniSONE 5 mg oral tablet Start: 03/19/24 3:26:00 PM EDT, 4 tab, PO, Daily Start Date: 03/19/24 Status: Ordered Repatha 140 mg/mL subcutaneous solution Start: 08/25/23 4:05:00 PM EDT, 140 mg =, subQ, q5rexzy, Disp# 2 pen_needle, Refills: 2, Pharmacy: [facility]/pharmacy #[id number] Start Date: 08/25/23 Status: Ordered Simpsoni Aria Golimumab Start: 01/03/22 4:31:00 PM EDT, Simpsoni Aria Golimumab, Infusion 284.8 mg every 8 weeks [facility] Start Date: 01/03/22 Status: Ordered sucralfate 1 g oral tablet Start: 03/22/24 4:35:00 PM EDT, See Instructions, Disp# 120 tab, Refills: 3, TAKE 1 TABLET BY MOUTH BEFORE MEALS AND AT BEDTIME, Pharmacy: [facility]/pharmacy #[id number] Start Date: 03/22/24 Status: Ordered Tylenol with Codeine #3 oral tablet Start: 03/08/24 5:38:00 PM EDT, 1 tab, PO, q6h, Disp# 60 tab, PRN: pain - moderate (4-6), Pharmacy: [id number] Start Date: 03/08/24 Status: Ordered Mental Status 03/25/24 Barriers to Learning one year None evide nt Mandatory Health Literacy Documentation Yes Health Literacy Communication Barriers N ever Primary Language Prydeinig Problem List Condition Confirmation Course Effective Dates Status H ealth Status Informant Aortoiliac stenosis Confirmed Active Left ankle pain Confirmed Active Arthritis of left wrist Confirmed Active Olecranon bursitis, left elbow Confirmed Active Carpal tunnel syndrome 1 Confirmed Active Chronic bronchitis with emphysema 2 Confirmed Active CKD (chronic kidney disease) stage 3, GFR 30-59 ml/min Confirmed Active Dyslipidemia 3 Confirmed Active CRP elevated Confirmed Active ESR raised Confirmed Active Chronic GERD Confirmed Active Hx of vasculitis of skin Confirmed Active Hematoma Confirmed Active HTN (hypertension) Confirmed Active Leukocytosis Confirmed Active Lung nodules 4 Confirmed Active Neck pain Confirmed Active Obesity Confirmed Active Immunotherapy Confirmed Active Antiplatelet or antithrombotic long-term use Confirmed Active Pulmonary HTN Confirmed Active Rheumatoid arthritis Confirmed Active Rotator cuff tear, right 5 Confirmed Active History of prior cigarette smoking 6 Confirmed Active Weight disorder Confirmed Active 1remotely, not currently an issue but has happened previously (decade +) 2on chest CT 3didn't tolerate statin therapy 4last scan Dec 20, 2021 5no impending repair per patient per ortho 6quit 1999 Diagnosis Diagnosis Type Effective Dates Health Status Clinical Service Informant Acquired spondylolisthesis 03/25/24 Non-Specified Lumbar stenosis with neurogenic claudication 03/25/24 Non-Specified Lumbar spine instability 03/25/24 Non-Specified Procedures Procedure Date Related Diagnosis Body Site Status Bilateral insertion of iliac artery stents 11/18/22 Completed Laminotomy 2022 Completed Iliac artery stent 04/2022 Comple agusto Fluoroscopic angiography wit h contrast and embolization of left lower limb artery 1 01/04/22 Completed Cataract surgery 2, 3 05/31/16 Com pleted lumbar fusion 4 06/2014 Completed Arthroscopy of Right Knee 2008 Completed Tonsillectomy 1966 Completed cervical laminectomy 08/2022 Completed 1Aortoiliac and left lower extremity angiography performed at [facility]. 2Left eye 3Right cataract surgery on 06/14/2016 4L4/5 with fusion Results Radiology Reports * Exam Date Time Procedure Performing Provider Status 03/25/24 8:10 AM XR Spine Lumbosacral 2 or 3 Views Roshni Leyva; Final Notes: (XR Spine Lumbosacral 2 or 3 Views) Reason For Exam: s/p L3-4 posterior fusion XR Spine Lumbosacral 2 or 3 Views EXAMINATION: XR Spine Lumbosacral 2 or 3 Views CLINICAL HISTORY: M48.062: Spinal stenosis, lumbar region with neurogenic cla; M53.2X6: Spinal instabilities, lumbar region; M43.10: Spondylolisthesis, site unspecified; M48.062: Spinal stenosis, lumbar region with neurogenic cla; M53.2X6: Spinal instabilities, lumbar region; M43.10: Spondylolisthesis, site unspecified; s/p L3-4 posterior fusion COMPARISON: Multiple prior radiographs of the lumbosacral spine including recent from 02/22/2024, CT of the lumbar spine from 02/14/2024 FINDINGS: Upright and lateral views. Posterior spinal fusion and laminectomy L3-L4 without acute hardware complication. Again noted is lateral positioning of the right L3 pedicle screw. Unchanged anterolisthesis of L3 on L4. Prior instrumented fusion L4-L5. Vertebral body heights are unchanged. Multilevel endplate osteophytes and intervertebral disc space narrowing. Moderate disc degenerative change at L2-L3 with mild retrolisthesis. Moderate facet hypertrophy most prominent at L5-S1. Biiliac stents. Abdominal aortic calcifications. IMPRESSION: Posterior spinal fusion hardware from L3 to L4. No new hardware complication. Dr. Alireza Narayan is the dictating resident. Finalized reports status indicates that the attending hasreviewed the images and report, and agrees with the interpretation. Preliminary report status should be regarded as NOT interpreted by the attending radiologist. Workstation ID: [id number] Final Dictated by:DO Narayan Manal Dictated DT/TM:03/25/2024 10:59 Resident:DO Narayan Manal Signed by:MD Cazares Cristy N Signed (Electronic Signature):03/25/2024 10:58 Social History Social History Type Response Tobacco Cigarettes, Started age 14 Years. 1 Smoking Status Former Smoker, quit > 1 yr Sex Male 1started smoking at age 14 smoking 2-3 pkg per day until 1999 Implantable Device List Procedure Provider Procedure Date Device Type Site Unknown Unknown 02/21/24 Unknown Unknown Device Identifier Serial Number Lot or Batch Number Manufacturing Date Expiration Date Distinct Identification Code MRI Safety Implantable Status Assigning Authority Unknown Unknown [id number] Unknown 01/14/29 Unknown Unknown Active Unknown Unknown Unknown [id number] Unknown 06/17/26 Unknown Unknown Active Unknown Unknown Unknown na Unknown Unknown Unknown Unknown Active Unkn own Unknown Unknown na Unknown Unknown Unknown Unknown Active Unkn own Unknown Unknown na Unknown Unknown Unknown Unknown Active Unkn own Outpatient Note * TIMO Maddox Renee D: PERFORM, MODIFY, MODIFY Event Display: .Outpt Note Authored Date: [id number] OUTPATIENT NOTE Name: VINCENT NGUYEN Jr. Patient Number:1 [id number] : 1960 Date of Service: 03/25/2024 Vincent Nguyen Jr. returns to the neurosurgery office today for a 1-month post- operative visit. He is a pleasant 63-year-old gentleman who recently underwent L3-4 bilateral laminotomy with posterior fusion using instrumentation at L3-4, removal of L4-5 pedicle screw instrumentation by Dr. Martins on February 21, 2024. He is unaccompanied for today's visit. He reports today that shortly after his last visit to the neurosurgery office 2 weeks ago, he noticed that his right 3rd toe was black and had associated right foot pain. This is consistent with his prior experience of vascular issues leading to stent placement. He contacted his vascular surgeon and has undergone evaluation, including ultrasound and CT scans. He is scheduled to see his surgeon tomorrow to discuss revision of his stents to address this issue. From a neurosurgical perspective, he reports that he continues to do well. His pre-operative lower back pain and balance issues have resolved. He has some dysesthesia in the right heel,which is improving. He has not had any difficulty with his incision. Denies and fevers, sweats or ch ills or any signs or symptoms of infection. He has no other issues to discuss with today's visit. His past medical and surgical history medications were reviewed in the office today and are enclosed within his chart. On exam today, he is awake, alert, and oriented x 3, conversant and appropriate. Vital signs were obtained and are enclosed within his chart. His weight is 128.8 kg. He present in his wheelchair today due to distance for walking. He has good strength in the lower extremities with intact sensation to light touch throughout the bilateral lower extremities. His incision is healing well without any erythema or drainage noted. Upright AP & lateral x-rays of the lumbar spine were obtained in conjunction with today's visitand personally reviewed by this clinician. These show stable configuration of the instrumentation. These results were discussed with the patient today. Overall, Andrew is doing expectantly following recent bilateral L3-4 laminotomy with posterior instrumented fusion and removal of L4-5 posterior instrumentation performed approximately 1 month ago. Hewas asked to continue with a 10 pound weight restriction and may otherwise perform activities as tolerated, unless otherwise instructed by his vascular surgeon. We reviewed medication instructions provided by Dr. Martins in regards to his rheumatology treatments. Presently, his vascular issues are his predominant issues at this time and he is following closely with his respective surgeon. We will plan to follow-up with Andrew in 6-8 weeks for his 3-month post-operative visit with upright AP, later al, flexion and extension x-rays completed at that time. He knows that he may contact the office inthe interim should the need arise. Additional questions were answered to his satisfaction. Today's visit was completed in collaboration with Dr. Martins. Electronic Signature on File CC: Zechariah Cabral MD [address] [place] [id number] Electronically Reviewed/Signed by: TIMO Landaverde Author Signature Dt/Tm:03/25/2024 10:30 AM Department of Neurosurgery RDO Patient Care team information Care Team Personnel Name: MD Cabral Christopher Position: Physician - Family Med Member Role: Primary Care Provider Address: Address: [facility] [address] [address] [place] Name: VALERIE Matt Lynn Position: Physician Backside Grinder Exempt - Vasc Surg Member Role: Lifetime Relationship Address: Address: [address] [place] [address] [place] Name: Halima Rothman Position: MOA Schedule II Member Role: HIS Lifetime Care Team Related Persons Name: DAISHA NGUYEN Address: home [address] [place] [phone] Name: DAISHA NGUYEN Address: home [address] [facility] [address] [place] [address]
[2024-04-01] MEDS ORDERED: metHOTREXate sodium 2.5 MG TAB PO SCH (09:00)
== END 2024-03-28 15:07 | disposition home or self-care (01) ==
LOC: 4W 08:16 → ASU 08:16